=== PATIENT | female | born 1995 | race Caucasian/White ===

== ENCOUNTER → 2018-03-01 10:01 | Outpatient (CLI) | payer OTHER, SELFPAY ==
[2018-03-01 10:56] LABS: Absolute Lymphocyte Count 2.09 X10^3/ul (0.83-4.51); Absolute Neutrophil Count 4.7 X10^3/uL (2.0-7.7); Basophil# 0.03 X10^3/uL; Basophil% 0.4 % (0-1); Eosinophil# 0.08 X10^3/uL; Eosinophils% 1.1 % (0-5); Hematocrit 41.1 % (37-47); Lymphocyte # 2.09 X10^3/ul (4.0); Lymphocyte % 27.7 % (19-41); Mean Corp Hgb Conc 34.1 g/gl (32-36); Mean Corpuscular Hgb 33.9 pg (27.0-32.0); Mean Corpuscular Volume 99.5 fL (81-99); Mean Platelet Vol. 10.1 fl (6.2-12.0); Monocyte# 0.63 X10^3/uL; Monocyte% 8.3 % (0-10); Neutrophil # 4.71 X10^3/uL (2.7-7.7); Neutrophil % 62.4 % (47-70); POSITIVE COUNT NO; POSITIVE DIFFERENTIAL NO; POSITIVE MORPHOLOGY NO; Platelet Count 299 K/mm3 (150-450); RBC Distribution Width CV 12.4 % (11.6-14.6); RBC Distribution Width SD 44.2 fl (35.1-43.9); Red Blood Count 4.13 M/mm3 (4.2-5.4); White Blood Count 7.6 K/mm3 (4.4-11.0)
[2018-03-08 11:34] LABS: Immunoglobulin E 16 IU/mL (0-100)
== END ==
PROVIDERS: Family Provider Internal Medicine; PCP Internal Medicine; Visit Provider Internal Medicine Critical Care Medicine
DX: J30.1 Allergic rhinitis due to pollen (principal); R06.09 Other forms of dyspnea
CPT/HCPCS: 36415; 82785; 85025

== ENCOUNTER → 2018-08-26 20:34 | Outpatient (CLI) | payer OTHER, SELFPAY ==
[2018-08-30 14:18] LABS: HPV Reflexed? NOT INDICATED
== END ==
PROVIDERS: Family Provider Internal Medicine; PCP Internal Medicine; Referring Provider Nurse Practitioner Women's Health; Visit Provider Nurse Practitioner Women's Health
DX: N76.0 Acute vaginitis (principal); Z12.4 Encounter for screening for malignant neoplasm of cervix
CPT/HCPCS: 87070; 87077; 87106; 87205; 88175; G0145

== ENCOUNTER → 2020-10-13 16:17 | Outpatient (CLI) | payer OTHER, SELFPAY ==
[2020-10-13 14:10] VITALS: BMI 22.8
== END ==
PROVIDERS: PCP Family Medicine; Visit Provider Nurse Practitioner Women's Health
DX: N94.9 Unspecified condition associated with female genital organs and menstrual cycle (principal)
CPT/HCPCS: 87070; 87077; 87205

== ENCOUNTER 2022-01-13 10:13 | Outpatient (CLI) | payer OTHER, SELFPAY ==
[2022-01-18 14:28] LABS: HPV Reflexed? NOT INDICATED
== END 2022-01-13 23:59 | disposition home or self-care (01) ==
LOC: LABSPEC 10:14
PROVIDERS: PCP Family Medicine; Visit Provider Obstetrics & Gynecology
DX: Z12.4 Encounter for screening for malignant neoplasm of cervix (principal)
CPT/HCPCS: 88175; G0145

== ENCOUNTER 2025-11-12 04:01 | Emergency (ER) | payer OTHER, SELFPAY ==
[2025-11-12 04:03] VITALS: BP 129/92; PULSE 103; RESP 16; TEMP 37; O2SAT 100; BMI 25.0
--- NOTE | 2025-11-12 04:48 | EDS_ITS ---
HPI HPI - GI History of Present Illness Chief Complaint: Abd Pain Informant: patient Abdominal Pain/Flank Pain Onset: Month(s) Context: Gradual Onset Timing: Intermittent Quality: Burning, Sharp and Stabbing Location: RUQ, RLQ and Right Flank Worsened by: Nothing Relieved by: - (Hot shower) Nausea/Vomiting/Emesis GI Symptom: Positive for Nausea and Vomiting Onset: Today Quality: Positive for Nonbilious; Negative for Blood streaks, Coffee ground or Hematemesis Diarrhea/Melena/Hematochezia GI Symptom: Negative for Diarrhea, Melena or Hematochezia Associated Symptoms Associated Symptoms: Negative for Dysuria, Frequency or Hematuria LMP: Current Narrative Narrative: Patient presents with abdominal pain has been intermittent over the past 2 to 3 months. Patient states that tonight it became severe. Patient states that his sharp, stabbing, and burning. Patient states it is mainly over the right side of her abdomen and into his right flank. Patient states it did get better when she took a hot shower. Patient admits to some nausea and vomiting. Patient denies any hematemesis or coffee-ground emesis. Patient denies any diarrhea, melena, or hematochezia. Patient denies any urinary complaints. Patient states she is currently on her menstrual cycle. Patient admits to some subjective fevers and chills. [facility] Medical History (Updated 11/12/25 @ 07:[address] 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 Insomnia Anxiety attack Asthma Back spasm Back pain Syncope Scoliosis Drug rash Abscess and cellulitis Home Medications ?Medication ?Instructions ?Recorded ?Last Taken ?Type albuterol sulfate 90 mcg/actuation 2 puff inhalation Q 4H PRN 01/23/18 Unknown Rx aerosol inhaler (ProAir HFA) shortness of breath or wh eezing #18 grams albuterol sulfate 2.5 mg/3 mL 2.5 mg (3 mL) inhalation Q4H PRN 12/03/18 Unknown Rx (0.083 %) solution for nebulization shortness of breat h or wheezing #180 vials adapalene 0.1 %-benzoyl peroxide 1 applic topical JR Y 10/07/19 Unknown History 2.5 % topical gel with pump (Epiduo) spironolactone 25 mg tablet 100 mg PO DAILY 10/13/20 U nknown History (Aldactone) verapamil 120 mg 24 hr 180 mg PO DAILY 10/13/20 Unk nown History capsule,extended release levonorgestrel 0.15 mg-ethinyl 1 tab PO DAILY 90 days #90 tabs 01/19/23 Unknown Rx estradiol 30 mcg tablets,3 mos pack(91) (Jolessa) spironolactone 100 mg tablet 100 mg PO DAILY 01/19/23 Unknown History tramadol 50 mg tablet 50 mg PO Q6H PRN pain 3 days #30 01/19/23 Unknown Rx tabs hydrocodone-acetaminophen 5-325mg 1 tab PO Q6H PRN PRN Pain 3 days 11/12/25 Unknown Rx 5mg-325mg #10 TABLETS Allergy/AdvReac Type Severity Reaction Status Date / Time azithromycin (From Zithromax Allergy Severe unknown Verified 11/12/25 04:06 Z-David) cephalexin monohydrate (From Allergy Upset Verified 11/12/25 04:06 Keflex) Stomach gluten Allergy Unknown Verified 11/12/25 04:06 sulfamethoxazole (From Allergy Rash Verified 11/12/25 04:06 Bactrim) trimethoprim (From Bactrim) Allergy Rash Verified 11/12/25 04:06 Surgical History (Updated 11/12/25 @ 05:[address] Pritesh Pereira DO) Hx of section Social History adopted: No household members: spouse housing: house number of children: 0 current occupational status: employed current occupation: [employer] pets and animals: Yes history of recent travel: No Smoking Status: Never smoker Electronic Cigarette Use: not used second hand exposure: No alcohol intake: current alcohol intake frequency: holidays/special occasions only substance use type: does not use caffeine: Yes what type of physical activity do you participate in: aerobics and weight training frequency: 3-4 times per week seatbelt use: always do you feel safe at home: Yes additional social history: - [facility] Constitutional Constitutional ED: Reports chills, fever(s) and subjective Eyes Eyes: Denies blurry vision or change in vision ENT ENT ED: Denies rhinorrhea or sore throat Cardiovascular Cardiovascular: Denies chest pain or palpitations Respiratory/Chest Respiratory/Chest: Denies cough or dyspnea Gastrointestinal Gastrointestinal: Reports abdominal pain, nausea and vomiting; Denies diarrhea or melena Genitourinary Genitourinary ED: Denies dysuria or hematuria Musculoskeletal Musculoskeletal: Reports back pain; Denies neck pain Integumentary Denies abscess or rash Neurologic Neurologic: Denies headache(s) or weakness Allergic/Immunologic Allergic/Immunologic ED: Denies mouth swelling or urticaria EXAM Physical Exam Const Vital Signs: 11/12/25 04:03 11/12/25 06:02 Temperature 98.6 F Temperature Source Oral Pulse Rate 103 H 78 Respiratory Rate 16 16 Blood Pressure 129/92 H 131/88 H Blood Pressure Mean 104 102 Pulse Ox 100 98 Oxygen Delivery Method Room Air Room Air Positive well nourished and well developed Constitutional Narrative: BMI is 25.0. General Appearance ED: well developed and NAD HEENT Reports moist mucous membranes normocephalic and atraumatic Neck supple and no JVD Resp normal respiratory effort and clear to auscultation bilaterally Cardio regular rate and regular rhythm GI non-distended Palpation: soft and tender RLQ and RUQ; Negative for guarding or rebound tenderness present Back/Spine General Back: CVA tenderness right Neuro CN's II-XII intact bilaterally, moves all extremities and no sensory deficits noted Sensorium / Orientation: alert Motor Exam: strength 5/5 throughout Psych mental status grossly normal and thought process normal MDM MDM MDM Narrative Medical decision making narrative: Differential diagnosis includes ureteral calculus, pyelonephritis, urinary tract infection, diverticulitis, peptic ulcer disease, duodenal ulcer, cholecystitis, cholelithiasis, bowel obstruction, perforation, , and anxiety. CT scan of the abdomen and pelvis will be obtained to assess for ureteral calculus, pyelonephritis, bowel obstruction, perforation, pancreatitis, and cholecystitis. CBC will be obtained to assess for leukocytosis and anemia. Comprehensive metabolic profile will be obtained to assess for hepatic function, renal function, and electrolyte abnormality. Lipase will be obtained to assess for pancreatitis. Serum hCG will be obtained to assess for . Urinalysis will be obtained to assess for urinary tract infection and hematuria. Lab Data Attestation: I reviewed the patient's lab results. Lab results narrative: CBC was reviewed. There is a mild anemia with a hemoglobin of 11.2 and hematocrit 33.2. The remainder is within normal limits. Basic metabolic profile was reviewed. Potassium slightly low at 3.2. The remainder is essentially within normal limits. Lipase was reviewed and was normal at 21. Serum hCG was reviewed and was negative. Urinalysis was reviewed. Leukocyte esterase was 100. There are 5-10 white blood cells. There is no bacteria noted. Labs: Laboratory Results - last 24 hr 11/12/25 11/12/25 05:10 05:49 WBC 10.6 RBC 3.89 L Hgb 11.2 L Hct 33.2 L MCV 85.3 MCH 28.8 MCHC 33.7 RDW Std Deviation 49.8 H RDW Coeff of Joe 16.0 H Plt Count 310 MPV 10.1 Immature Gran % (Auto) 0.300 Neut % (Auto) 81.5 H Lymph % (Auto) 8.9 L Bonner % (Auto) 8.6 Eos % (Auto) 0.4 Baso % (Auto) 0.3 Absolute Neuts (auto) 8.7 H Absolute Lymphs (auto) 0.95 Nucleated RBC % 0 Sodium 142 Potassium 3.2 L Chloride 105 Carbon Dioxide 23.5 Anion Gap 14 BUN 10 Creatinine 0.58 L Estim Creat Clear Calc 131.39 Est GFR (MDRD) Non-Af 124 BUN/Creatinine Ratio 16.7 Glucose 100 H Calcium 9.3 Total Bilirubin 0.87 AST 27 ALT 25 Alkaline Phosphatase 83 Total Protein 7.3 Albumin 4.4 Globulin 2.9 Albumin/Globulin Ratio 1.5 Lipase 21 Serum , Qual NEGATIVE Urine Color Yellow Urine Clarity Clear Urine pH 7.0 Ur Specific [place] 1.005 Urine Protein 15 H Urine Glucose (UA) Normal Urine Ketones Negative Urine Occult Blood 50 H Urine Nitrite Negative Urine Bilirubin Negative Urine Urobilinogen Normal Ur Leukocyte Esterase 100 H Urine RBC 0-5 SEEN Urine WBC 5-10 SEEN Ur Squamous Epith Cells 0 SEEN Urine Bacteria 0 SEEN Urine Mucus 0 SEEN Radiography Diagnostic Testing: Clinical Impression(s) from Imaging Studies Abdomen/Pelvis CT 11/12/25 06:15 IMPRESSION: Mild colonic stool burden without evidence of acute gastroenterologic abnormality. The appendix was not definitively identified on this examination without secondary findings to suggest an acute appendicitis. No abdominal lymphadenopathy. Reading Location: [facility] CT scan of the abdomen and pelvis was obtained. There is mild stool in the colon. There is no evidence of bowel obstruction or perforation. There is no inflammatory findings in the right lower quadrant to suggest appendicitis. There is no lymphadenopathy noted. This was interpreted by the radiologist. I also independently reviewed the images. I did not see any evidence of free air or free fluid. Treatment and Re-Evaluation :: Patient was given IV fluids, morphine, and Zofran. Patient was feeling better on reevaluation. Patient was advised of her findings. Patient was instructed to drink plenty of fluids. Patient was given a prescription for a short course of [place] for pain. Patient was instructed to follow-up with her primary care physician in 5 to 7 days. Patient was instructed return if worse in any way. Patient understood and was agreeable with the plan. All questions were answered. Discharge Plan Triage Chief Complaint: Abd Pain ED Provider: Pritesh Pereira Dx/Rx/DC Orders Clinical Impression: Abdominal pain Instructions: ED Abdominal Pain Unkn Cause Fem Prescriptions: New hydrocodone-acetaminophen 5-325 mg tablet 1 tab PO Q6H PRN PRN (Reason: Pain) 3 Days Qty: 10 0RF No Action verapamil 120 mg capsule,ext rel. pellets 24 hr 180 mg PO DAILY adapalene-benzoyl peroxide [Epiduo] 0.1-2.5 % gel with pump 1 applic TOPICAL DAILY spironolactone [Aldactone] 25 mg tablet 100 mg PO DAILY spironolactone 100 mg tablet 100 mg PO DAILY levonorgestrel-ethinyl estrad [Jolessa] 0.15 mg-30 mcg (91) tablets,dose pack,3 month 1 tab PO DAILY 90 Days Qty: 90 5RF Rx Instructions: take continuously (no breaks between active pills) tramadol 50 mg tablet 50 mg PO Q6H PRN (Reason: pain) 3 Days Qty: 30 3RF albuterol sulfate [ProAir HFA] 90 mcg/actuation HFA aerosol inhaler 2 puff INHALATION Q4H PRN (Reason: shortness of breath or wheezing) Qty: 18 6RF albuterol sulfate 2.5 mg /3 mL (0.083 %) solution for nebulization 2.5 mg INHALATION Q4H PRN (Reason: shortness of breath or wheezing) Qty: 180 6RF Primary Care Provider: Care Physician,No Primary Referrals: Jeb Restrepo MD [Non-Staff, [facility]] - 5-7 Days Print Language: Omani Disposition Disposition: Home, Self Care
--- OUTSIDE RECORDS SUMMARY | 2025-11-12 05:01 | XMS RPT_ITS | CCD ---
Author Organization [facility] Care Team Providers Care Mold Cleaner Name Role Phone Cat Gutierrez Unavailable Miguel Rodriges Unavailable Sahil Jansen Unavailable Surya Osman Unavailable Princess Saeed Unavailable Unavailable Virginia Valdes Unavailable Unavailable Raciel Green Unavailable Unavailable Long, Tomasa L Unavailable Unavailable Unavailable Unavailable BrendaRamirez bennetteen Unavailable Miguel Rodriges Unavailable AttBonilla royaliherma Unavailable Surya Osman Unavailable Princess Saeed Unavailable Unavailable Virginia Valdes Unavailable Unavailable Raciel Green Unavailable Unavailable Long, Tomasa L Unavailable Unavailable Unavailable Unavailable Luis Restrepo Unavailable Unavailable Luis Restrepo Unavailable Unavailable Unknown, Referring Provider Unavailable Unav ailable Cat Gutierrez Unavailable Unavailable Luis Restrepo MD Unavailable Unavailable Cecille Urbano Unavailable Unavaila ble Luis Restrepo Unavailable Unavailable Unknown, Referring Provider Unavailable Unav ailable Brenda Cat K Unavailable Unavailable Luis Restrepo Unavailable Unavailable Unavailable Trill GREENBELTMarissa MEDEL Primary Care Provider Trill GREENBELTMarissa MEDEL Primary Care Provider Trill GREENBELTMarissa MEDEL Primary Care Provider JESUS ABDI Primary Care Physician JAMEY FARIAS Primary Care Unavailable MARISSA BLACKWOOD Attending Unavailable MARISSA BLACKWOOD Referring Unavailable MARISSA BLACKWOOD Primary Care Unavailable MARISSA BLACKWOOD Primary Care Unavailable MARISSA BLACKWOOD Attending Unavailable MARISSA BLACKWOOD Primary Care Unavailable MARISSA BLACKWOOD Referring Unavailable JESUS BLACKWOOD CNP Primary Care Unavailable CARITO JURADO Attending Unavailable Savanna Reynoso Attending UnavailJeb Segura Referring Unavailable Jeb Restrepo Primary Care Unavailable Allergies Allergy Classification Reported Allergen(s) Allergy Type Date of Onset Reaction(s) Facility Amoxicillin / Clavulanate (1 source) Amoxicillin / Clavulanate Drug Allergy Diarrhea [facility] Work Phone: Cephalosporins (antibiotic) (1 source) Cephalexin Drug Allergy Vomiting [facility] Work Phone: Macrolides (antibiotic) (1 source) Azithromycin Drug Allergy Diarrhea [facility] Work Phone: Penicillins (antibiotic) (1 source) Penicillins; Translations: [Penicillins] Drug Allergy [facility] Work Phone: Sulfamethoxazole / Trimethoprim (1 source) Sulfamethoxazole / Trimethoprim Drug Allergy Vomiting [facility] Work Phone: (15 sources) Azithromycin; Translations: [Zithromax *MACROLIDES*] Drug Allergy 10-07-20 19 Diarrhea, Other: See Comments [facility] Work Phone: (16 sources) Cephalexin; Translations: [Keflex *CEPHALOSPORINS*] Drug Allergy 10-07-20 19 Vomiting, GI Upset [facility] Work Phone: (16 sources) Sulfamethoxazole / Trimethoprim; Translations: [Bactrim *ANTI-INFECTIVE AGENTS - MISC.*] Drug Allergy 07-28-20 22 Rash, Vomiting [facility] Work Phone: (2 sources) Amoxicillin / Clavulanate; Translations: [Augmentin] Drug Allergy Diarrhea [facility] Work Phone: (1 source) Azithromycin Drug Allergy Diarrhea [facility] Work Phone: (1 source) Cephalexin Drug Allergy Vomiting [facility] Work Phone: (3 sources) Penicillins; Translations: [Penicillins] Allergy to drug (finding) 07-28-20 [facility] Repository (1 source) Sulfamethoxazole / Trimethoprim Drug Allergy Vomiting [facility] Work Phone: (12 sources) Penicillins Drug Allergy 07-28-20 Diarrhea [facility] Work Phone: (13 sources) Sulfamethoxazole; Translations: [SULFAMETHOXAZOLE] Drug Allergy 10-07-20 Rash [facility] Work Phone: (13 sources) Trimethoprim; Translations: [TRIMETHOPRIM] Drug Allergy 10-07-20 Rash [facility] Work Phone: (13 sources) Wheat gluten extract; Translations: [GLUTEN] Drug Allergy 10-07-20 Unknown [facility] Work Phone: (2 sources) Azithromycin; Translations: [AZITHROMYCIN] Drug Allergy 10-07-20 [facility] Repository (1 source) Cephalexin; Translations: [CEPHALEXIN] Drug Allergy 10-07-20 [facility] Rep[facility] (1 source) Sulfamethoxazole / Trimethoprim; Translations: [SULFAMETHOXAZOLE-T RIMETHOPRIM] Drug Allergy 07-28-20 [facility] Repository (1 source) Cephalexin Drug Allergy 01-20-20 23 [facility] Repository (1 source) Gluten Drug allergy (disorder) 01-20-20 23 [facility] Repository (1 source) Sulfamethoxazole Drug Allergy 01-20-20 23 [facility] Repository (1 source) Trimethoprim Drug Allergy 01-20-20 23 [facility] Repository Medications Current Medications Medication Drug Class(es) Dates Sig (Normalized) Sig (Original) acetaminophen 325 mg / butalbital 50 mg / caffeine 40 mg oral capsule (20 sources) Barbiturate, Central Nervous System Stimulant, Methylxanthine Start: 02-19-2023 take 1 capsule by mouth every four hours as needed for headache acetaminophen 325 mg-caffeine 40 mg-butalbital 50 mg (FIORICET) per capsule Indications: Migraine without aura and without status migrainosus, not intractable Take 1 capsule by mouth every 4 hours as needed for headache. 45 capsule 3 02/19/2023 Active Start: 09-23-2021 End: 02-19-2023 take 1 capsule by mouth every four hours as needed for headache acetaminophen 325 mg-caffeine 40 mg-butalbital 50 mg (FIORICET) per capsule Indications: Migraine without aura and without status migrainosus, not intractable Take 1 capsule by mouth every 4 hours as needed for headache. 45 capsule 3 01/18/2023 02/19/2023 Discontinued Start: 05-07-2020 take 1 capsule by mo uth every four hours as needed [id number] 50-325-40 MG Oral Capsule TAKE 1 CAPSULE EVERY 4 HOURS NEEDED. Quantity: 30 Refills: 6 Ordered: 14-Sep-2020 Luis Restrepo MD Start : 07-May-2020 Active Start: 08-01-2018 take 1 capsule by mo uth once daily as needed Fioricet 50-300-40 MG Oral Capsule 1 (one) Capsule 1-2 daily for migraine prn for 0 days Quantity: 30 {Capsule} Refills: 0 Ordered: 01-Aug-2018 Cat Gutierrez DO, DO, Kathleen Start : 01-Aug-2018 Active Comments: [id number] migraines Comment on above: [id number] migrai saundra Take 1 capsule by mo uth every 4 hours as needed. Take 1 capsule by mo uth every 4 hours as needed for headache. acetaminophen 325 mg / HYDROcodone bitartrate 5 mg oral tablet (1 source) Opioid Agonist Start: 023 End: 023 take 1 tablet by mouth every four hours as needed for pain Renner 325- 5 mg oral tablet Dose = 1 tab(s), Oral, q4h, PRN for pain, X 2 day(s), # 7 tab(s), 0 Refill(s), Contusion of leg, 63.8 Start Date: 12/22/22 Stop Date: 12/24/22 Status: Ordered esomeprazole 20 mg delayed release oral capsule (7 sources) Proton Pump Inhibitor Start: End: take 1 capsule by mouth once daily esomeprazole (NEXIUM) 20 mg capsule Take 1 capsule by mouth once daily. ONE HOUR BEFORE EATING. 90 capsule 3 08/24/2022 08/24/2023 Active Comment on above: Take 1 capsule by mo [facility] once daily. ONE HOUR BEFORE EATING. spironolactone 100 mg oral tablet (18 sources) Aldosterone Antagonist Start: 020 End: 024 take 1 tablet by mouth once daily spironolactone (ALDACTONE) 100 mg tablet Indications: Acne, unspecified acne type Take 1 tablet by mouth once daily. 90 tablet 3 01/11/2023 01/11/2024 Active Start: 03-29-2015 End: 09-23-2015 take 1 tablet by mouth twice daily ALDACTONE, 100MG (Oral Tablet) 1 (one) Tablet bid for 30 days Quantity: 60 {Tablet} Refills: 0 Ordered: 23-Sep-2015 Princess Saeed LPN Start : 29-Mar-2015 End : 23-Sep-2015 Inactive Comment on above: Take 1 tablet by [facility] once daily. Completed/Discontinued Medications Medication Drug Class(es) Dates Sig (Normalized) Sig (Original) [id number] 200 actuat albuterol 0.09 mg/actuat metered dose inhaler (20 sources) beta2-Adrenergic Agonist Start: 03-04-2021 PROAIR HFA 90 mcg/actuation inhaler Start: 02-10-2021 Albuterol Sulf ate (2.5 MG/3ML) 0.083% Inhalation Nebulization Solution USE 1 UNIT DOSE IN NEBULIZER EVERY 6 HOURS NEEDED. Quantity: 1 Refills: 11 Ordered: 10-Feb-2021 Cecille Urbano Start : 10-Feb-2021 Active Start: 11-24-2020 take 2 puff(s) by in halation every four to six hours as needed Albuterol Sulfate HFA 108 (90 Base) MCG/ACT Inhalation Aerosol Solution INHALE 2 PUFFS EVERY 4-6 HOURS NEEDED. Quantity: 3 Refills: 3 Ordered: 04-Mar-2021 Luis Restrepo MD Start : 24-Nov-2020 Active Start: 11-24-2020 take 2 puff(s) by in halation every four to six hours as needed Albuterol Sulfate HFA 108 (90 Base) MCG/ACT Inhalation Aerosol Solution INHALE 2 PUFFS EVERY 4-6 HOURS NEEDED. Quantity: 3 Refills: 3 Luis Restrepo MD Start : 24-Nov-2020 Active 6.7 GM Inhaler Start: 06-28-2017 End: 04-26-2016 Proventil HFA 108 (90 Base) MCG/ACT Inhalation Aerosol Solution 2 (two) Aerosol Soln Aerosol Soln q 6 hr prn for 0 days Quantity: 1 {Inhaler} Refills: 1 Ordered: 28-Jun-2017 Cat Gutierrez DO, DO, Kathleen Start : 28-Jun-2017 End : 26-Apr-2016 Active Start: 06-28-2017 take 2 puff(s) by in halation every six hours as needed ProAir HFA 108 (90 Base) MCG/ACT Inhalation Aerosol Solution 2 (two) Puff Puff q6h prn for 0 days Quantity: 1 {Each} Refills: 2 Ordered: 28-Jun-2017 Cat Gutierrez DO, DO, Kathleen Start : 28-Jun-2017 Active Start: 06-28-2017 End: 04-26-2016 Proventil HFA 108 (90 Base) MCG/ACT Inhalation Aerosol Solution 2 (two) Aerosol Soln Aerosol Soln q 6 hr prn for 0 days Quantity: 1 {Inhaler} Refills: 1 Ordered: 28-Jun-2017 Cat Gutierrez DO, DO, Kathleen Start : 28-Jun-2017 End : 26-Apr-2016 Active Start: 06-28-2017 ProAir HFA 108 (90 Base) MCG/ACT Inhalation Aerosol Solution 2 (two) Puff Puff q6h prn for 0 days Quantity: 1 {Each} Refills: 2 Ordered: 28-Jun-2017 Cat Gutierrez DO, DO, Kathleen Start : 28-Jun-2017 Active Start: 04-26-2016 End: 03-28-2017 Ventolin HFA 108 (90 Base) M CG/ACT Inhalation Aerosol Solution 1 (one) Aerosol Soln Aerosol Soln 2 puffs q6hrs prn for 0 days Quantity: 1 {Bottle} Refills: 3 Ordered: 28-Mar-2017 Luiz CUTTER HEAD SHARPENERKonstantinn L Start : 26-Apr-2016 End : 28-Mar-2017 Inactive Start: 11-03-2015 End: 03-28-2017 Albuterol Sulfate (2.5 MG/3M L) 0.083% Inhalation Nebulization Solution 1 (one) Nebulized Soln Nebulized Soln every six hours, as needed for 30 days Quantity: 1 {Bottle} Refills: 1 Ordered: 28-Mar-2017 Luiz CUTTER HEAD SHARPENERTomasa Frost L Start : 03-Nov-2015 End : 28-Mar-2017 Inactive Comments: Medication taken as needed. as needed for shortness of breath Start: 11-03-2015 End: 04-26-2016 PROVENTIL HFA, 108 (90 Base)MCG/ACT (Inhalation Aerosol Solution) 2 (two) Puff Puff tid or qid prn for 0 days Quantity: 1 {Inhaler} Refills: 2 Ordered: 26-Apr-2016 Princess Saeed LPN Start : 03-Nov-2015 End : 26-Apr-2016 Inactive Comments: use 10 minutes before exercise Start: 11-03-2015 End: 04-26-2016 PROVENTIL HFA, 108 (90 Base)MCG/ACT (Inhalation Aerosol Solution) 2 (two) Puff Puff tid or qid prn for 0 days Quantity: 1 {Inhaler} Refills: 2 Ordered: 26-Apr-2016 Princess Saeed LPN Start : 03-Nov-2015 End : 26-Apr-2016 Inactive Comments: use 10 minutes before exercise take 2 puff(s) by in halation four times daily as needed PROAIR HFA, 108 (90 Base)MCG/ACT (Inhalation Aerosol Solution) 2 puffs qid, prn (108 (90 Base) MCG/ACT) Inactive Comment on above: Medication taken as needed. as needed for shortness of breath use 10 minutes befor e exercise azithromycin 250 mg oral tablet (2 sources) Macrolide Antimicrobial Start: 014 End: 015 ZITHROMAX Z-TARA, 250MG (Oral Tablet) 1 (one) Tablet TAD for 0 days Quantity: 1 {Package} Refills: 0 Ordered: 17-Feb-2015 Radhika Baker LPN Start : 21-Sep-2014 End : 17-Feb-2015 Discontinued 120 actuat beclomethasone dipropionate 0.08 mg/actuat metered dose inhaler (2 sources) Corticosteroid Start: End: take 1 puff(s) by inhalation twice daily QVAR, 80MCG/ACT (Inhalation Aerosol Solution) 1 (one) Puff bid for 0 days Quantity: 1 {Inhaler} Refills: 3 Ordered: 29-Mar-2015 Savanna Singh Start : 19-Mar-2015 End : 29-Mar-2015 Discontinued benzonatate 100 mg oral capsule (2 sources) Non-narcotic Antitussive Start: End: take 1 capsule by mouth three times daily as needed for cough Tessalon Perles 100 MG Oral Capsule 1 (one) Capsule tid prn cough for 7 days Quantity: 15 {Capsule} Refills: 0 Ordered: 16-Aug-2016 Amber Mckenna CNP Start : 16-Aug-2016 End : 23-Aug-2016 Inactive benztropine mesylate 0.5 mg oral tablet (2 sources) Anticholinergic, Antihistamine Start: take 1 tablet by mouth once daily Benztropine Mesylate 0.5 MG Oral Tablet TAKE 1 2 TABLETS BY MOUTH DAILY BEFORE BED FOR SWEATING Quantity: 60 Refills: 0 Ordered: 26-Jan-2021 DO Start : 25-Jan-2021 Active 60 actuat budesonide 0.08 mg/actuat / formoterol fumarate 0.0045 mg/actuat metered dose inhaler (2 sources) Corticosteroid, beta2-Adrenergic Agonist Start: End: take 2 puff(s) by inhalation twice daily SYMBICORT, 80-4.5MCG/ACT (Inhalation Aerosol) 2 (two) Puff Puff bid for 0 days Quantity: 1 {Inhaler} Refills: 0 Ordered: 23-Sep-2015 Princess Saeed LPN Start : 05-Mar-2015 End : 23-Sep-2015 Inactive Start: 03-05-2015 End: 09-23-2015 SYMBICORT, 80-4.5MCG/ACT (In halation Aerosol) 2 (two) Puff Puff bid for 0 days Quantity: 1 {Inhaler} Refills: 0 Ordered: 23-Sep-2015 Princess Saeed LPN Start : 05-Mar-2015 End : 23-Sep-2015 Inactive busPIRone hydrochloride 15 mg oral tablet (1 source) Start: 04-23-2020 take 1 tablet by mouth four times daily busPIRone HCl - 15 MG Oral Tablet TAKE 1 TABLET 4 TIMES DAILY Refills: 0 Start : 23-Apr-2020 Active cetirizine hydrochloride 10 mg oral tablet (2 sources) Histamine-1 Receptor Antagonist Start: 04-21-2016 End: 08-16-2016 take 1 tablet by mouth once daily ZyrTEC Allergy 10 MG Oral Tablet 1 (one) Tablet Tablet daily for 0 days Quantity: 30 {Tablet} Refills: 0 Ordered: 16-Aug-2016 Natividad Bryson LPN Start : 21-Apr-2016 End : 16-Aug-2016 Discontinued chlorhexidine gluconate 40 mg/ml topical spray (2 sources) Start: 04-02-2015 End: 09-23-2015 CHLORHEXIDINE GLUCONATE, 4% (External Liquid) 1 (one) Liquid Liquid x 5days then weekly x 4 weeks for 0 days Quantity: 1 {Bottle} Refills: 0 Ordered: 23-Sep-2015 Princess Saeed LPN Start : 02-Apr-2015 End : 23-Sep-2015 Inactive Comments: wash body head to toe, leave on 2 min then thouroughly wash off daily x 5 days, then weekly x 4 weeks Start: 04-02-2015 End: 09-23-2015 CHLORHEXIDINE GLUCONATE, 4% (External Liquid) 1 (one) Liquid Liquid x 5days then weekly x 4 weeks for 0 days Quantity: 1 {Bottle} Refills: 0 Ordered: 23-Sep-2015 Princess Saeed LPN Start : 02-Apr-2015 End : 23-Sep-2015 Inactive Comments: wash body head to toe, leave on 2 min then thouroughly wash off daily x 5 days, then weekly x 4 weeks Comment on above: wash body head to to e, leave on 2 min then thouroughly wash off daily x 5 days, then weekly x 4 weeks clonazePAM 1 mg oral tablet (1 source) Benzodiazepine Start: 2019 clonazePAM 1 MG Oral Tablet TAKE TABLET PRN Refills: 0 Start : 02-Apr-2020 Active codeine phosphate 2 mg/ml / guaiFENesin 20 mg/ml oral solution (2 sources) Opioid Agonist Start: 2015 End: 2016 take 1-2 [tsp_us] by mouth once daily at bedtime as needed Cheratussin AC 100-10 MG/5ML Oral Syrup 1-2 Teaspoon qhs prn for 0 days Quantity: 6 {Ounce} Refills: 0 Ordered: 28-Mar-2017 Tomasa Dee LPN Start : 16-Aug-2016 End : 28-Mar-2017 Inactive cyclobenzaprine hydrochloride 5 mg oral tablet (2 sources) Muscle Relaxant Start: 2013 End: 2014 take 1 tablet by mouth once daily at bedtime as needed CYCLOBENZAPRINE HCL, 5MG (Oral Tablet) 1 (one) Tablet Tablet qhs prn for muscle relaxant for 0 days Quantity: 30 {Tablet} Refills: 0 Ordered: 17-Feb-2015 Radhika Baker LPN Start : 22-Jul-2014 End : 17-Feb-2015 Discontinued dicyclomine hydrochloride 10 mg oral capsule (3 sources) Anticholinergic Start: 2018 take 1 capsule by mouth three times daily Dicyclomine HCl - 10 MG Oral Capsule TAKE 1 CAPSULE BY MOUTH THREE TIMES A DAY Quantity: 90 Refills: 0 Ordered: 16-Jul-2019 DO Start : 16-Jul-2019 Active doxycycline hyclate 100 mg oral capsule (2 sources) Tetracycline-class Drug Start: 2014 End: 2014 take 1 capsule by mouth twice daily DOXYCYCLINE HYCLATE, 100MG (Oral Capsule) 1 (one) Capsule Capsule bid for 0 days Quantity: 20 {Capsule} Refills: 0 Ordered: 23-Sep-2015 Princess Saeed LPN Start : 29-Mar-2015 End : 23-Sep-2015 Inactive DULoxetine 60 mg delayed release oral capsule (2 sources) Serotonin and Norepinephrine Reuptake Inhibitor Start: 2014 End: 2014 take 5 capsules by mouth once daily at bedtime CYMBALTA, 60MG (Oral Capsule Delayed Release Particles) 1 (one) Capsule DR Part Capsule DR Part qhs for 0 days Quantity: 30 {Capsule} Refills: 3 Ordered: 23-Sep-2015 Princess Saeed LPN Start : 17-Feb-2015 End : 23-Sep-2015 Inactive Start: 02-17-2015 End: 09-23-2015 take 1 capsule by mouth once daily at bedtime CYMBALTA, 60MG (Oral Capsule Delayed Release Particles) 1 (one) Capsule DR Part Capsule DR Part qhs for 0 days Quantity: 30 {Capsule} Refills: 3 Ordered: 23-Sep-2015 Princess Saeed RAMIRO Start : 17-Feb-2015 End : 23-Sep-2015 Inactive Norgestimate-Eth Estradiol 0.25-35 MG-MCG Oral Tablet (2 sources) Progestin, Estrogen Start: 10-07-2019 Norgestimate-Eth Estradiol 0.25-35 MG-MCG Oral Tablet Quantity: 28 Refills: 0 DO Start : 07-Oct-2019 Active Start: 10-07-2019 Norgestimate-E th Estradiol 0.25-35 MG-MCG Oral Tablet Quantity: 28 Refills: 0 Start : 07-Oct-2019 Active ferrous sulfate 325 mg oral tablet (7 sources) take 1 tablet by mouth twice daily at mealtime ferrous sulfate 325 mg (65 mg iron) tablet Take 325 mg by mouth twice daily with meals. 0 Active Comment on above: Take 325 mg by mouth twice daily with meals. 30 actuat fluticasone furoate 0.2 mg/actuat / vilanterol 0.025 mg/actuat dry powder inhaler (2 sources) Corticosteroid, beta2-Adrenergic Agonist Start: 02-11-20 21 Breo Ellipta 200-25 MCG/INH Inhalation Aerosol Powder Breath Activated ONE INHALATION DAILY. AFTER INHALATION RINSE MOUTH WITH WATER & SPIT.USE SAME TIME EACH DAY, NO MORE THAN 1 TIME IN 24 HOURS Quantity: 3 Refills: 3 Ordered: 04-Mar-2021 Luis Restrepo MD Start : 10-Feb-2021 Active gabapentin 600 mg oral tablet (1 source) Anti-epileptic Agent take 1 tablet by mouth three times daily Gabapentin 600 MG Oral Tablet TAKE 1 TABLET 3 TIMES DAILY. Refills: 0 Active levoFLOXacin 500 mg oral tablet (2 sources) Quinolone Antimicrobial Start: 08-16-20 16 End: 08-23-20 16 take 1 tablet by mouth once daily Levaquin 500 MG Oral Tablet 1 (one) Tablet daily for 7 days Quantity: 7 {QS} Refills: 0 Ordered: 16-Aug-2016 Amber Mckenna CNP Start : 16-Aug-2016 End : 23-Aug-2016 Inactive LORazepam 0.5 mg oral tablet (2 sources) Benzodiazepine Start: 02-15-20 18 take 1 tablet by mouth once daily as needed Ativan 0.5 MG Oral Tablet 1 (one) Tablet qd prn for 180 days Quantity: 30 {Tablet} Refills: 0 Ordered: 14-Feb-2018 Brenda LORD Cat Deal DO Start : 14-Feb-2018 Active Comments: thirtydx anxiety Comment on above: thirtydx anxiety lurasidone hydrochloride 40 mg oral tablet (1 source) Atypical Antipsychotic Start: 04-26-20 20 take 1 tablet by mouth at bedtime Latuda 40 MG Oral Tablet TAKE 1 TABLET Bedtime Refills: 0 Start : 26-Apr-2020 Active meloxicam 7.5 mg oral tablet (2 sources) Nonsteroidal Anti-inflammatory Drug Start: 08-26-20 14 End: 03-29-20 15 take 1 tablet by mouth once daily at mealtime MELOXICAM, 7.5MG (Oral Tablet) 1 (one) Tablet Tablet daily for 0 days Quantity: 30 {Tablet} Refills: 0 Ordered: 29-Mar-2015 Savanna Singh Start : 26-Aug-2014 End : 29-Mar-2015 Discontinued Comments: with food Comment on above: with food metaxalone 800 mg oral tablet (2 sources) Start: 09-02-20 15 End: 09-23-20 15 take 1 tablet by mouth three times daily as needed METAXALONE, 800MG (Oral Tablet) 1 (one) Tablet tid prn for 0 days Quantity: 20 {Tablet} Refills: 0 Ordered: 23-Sep-2015 Princess Saeed LPN Start : 02-Sep-2015 End : 23-Sep-2015 Inactive mirtazapine 15 mg oral tablet (2 sources) Start: 06-26-20 14 End: 03-29-20 15 take 1 tablet by mouth once daily at bedtime REMERON, 15MG (Oral Tablet) 1 (one) Tablet qhs for 30 days Quantity: 30 {Tablet} Refills: 3 Ordered: 29-Mar-2015 Savanna Singh Start : 26-Jun-2014 End : 29-Mar-2015 Discontinued modafinil 100 mg oral tablet (2 sources) Sympathomimetic-like Agent Start: 12-02-19 16 End: 08-16-20 16 take 1 tablet by mouth once daily Provigil 100 MG Oral Tablet 1 (one) Tablet Tablet qd for 0 days Quantity: 30 {Tablet} Refills: 0 Ordered: 16-Aug-2016 aNtividad Bryson LPN Start : 02-Dec-2015 End : 16-Aug-2016 Discontinued Comments: thirty Comment on above: thirty montelukast 10 mg oral tablet (2 sources) Leukotriene Receptor Antagonist Start: 02-11-20 21 take 1 tablet by mouth once daily Montelukast Sodium 10 MG Oral Tablet TAKE 1 TABLET DAILY. Quantity: 90 Refills: 3 Ordered: 04-Mar-2021 Luis Restrepo MD Start : 10-Feb-2021 Active mupirocin 0.02 mg/mg topical ointment (2 sources) RNA Synthetase Inhibitor Antibacterial Start: 04-02-20 15 End: 09-23-20 15 MUPIROCIN, 2% (External Ointment) 1 (one) Ointment Ointment apply qd x 5 days for 0 days Quantity: 1 {Tube} Refills: 0 Ordered: 23-Sep-2015 Princess Saeed LPN Start : 02-Apr-2015 End : 23-Sep-2015 Inactive Comments: apply small amount to q tip and apply to each nares, umbilicus, and rectum with new q tip for each area Comment on above: apply small amount t o q tip and apply to each nares, umbilicus, and rectum with new q tip for each area naproxen 500 mg oral tablet (12 sources) Nonsteroidal Anti-inflammatory Drug Start: 07-28-20 22 take 1 tablet by mouth twice daily as needed for pain naproxen (NAPROSYN) 500 mg tablet Indications: Chronic bilateral low back pain without sciatica , Chronic upper back pain Take 1 tablet by mouth twice daily as needed for pain (FOR PAIN - TAKE WITH FOOD.). 60 tablet 5 07/28/2022 Active Comment on above: Take 1 tablet by [facility] twice daily as needed for pain (FOR PAIN - TAKE WITH FOOD.). Norgestimate-Eth Estradiol 0.25-35 MG-MCG Oral Tablet (1 source) Start: 10-07-20 19 Norgestimate-Eth Estradiol 0.25-35 MG-MCG Oral Tablet Quantity: 28 Refills: 0 Ordered: 24-Feb-2020 DO Start : 07-Oct-2019 Active NORGESTIMATE-ETHINYL ESTRADIOL 0.18/0.215/0.25 MG-35 MCG,21, TAB (12 sources) Start: 10-07-20 19 NORGESTIMATE-ETHINY L ESTRADIOL 0.18/0.215/0.25 MG-35 MCG,21, TAB Norgestimate-Ethiny l Estradiol Active 1 TAB daily 84 October 07, 2019 3:52pm 0 10/07/2019 Active Comment on above: Norgestimate-Ethinyl Estradiol Active 1 TAB daily October 07, 2019 3:52pm omeprazole 20 mg delayed release oral capsule (2 sources) Proton Pump Inhibitor Start: 06-26-20 14 End: 07-22-20 14 take 1 capsule by mouth twice daily OMEPRAZOLE, 20MG (Oral Capsule Delayed Release) 1 (one) Capsule DR bid for 0 days Quantity: 60 {Capsule} Refills: 1 Ordered: 22-Jul-2014 Radhika Baker LPN Start : 26-Jun-2014 End : 22-Jul-2014 Discontinued predniSONE 20 mg oral tablet (6 sources) Start: 02-11-20 21 take 2 tablets by mouth once daily predniSONE 20 MG Oral Tablet TAKE 2 TABLET Daily Quantity: 10 Refills: 1 Ordered: 10-Feb-2021 Cecille Urbano Start : 10-Feb-2021 Active Start: 08-16-2016 End: 03-28-2017 PredniSONE 10 MG Oral Tablet 1 (one) Tablet bid x 3days for 0 days Quantity: 6 {Tablet} Refills: 0 Ordered: 28-Mar-2017 Tomasa Dee LPN Start : 16-Aug-2016 End : 28-Mar-2017 Inactive Comments: with food Start: 11-04-2015 End: 11-14-2015 PREDNISONE, 20MG (Oral Table t) 1 (one) Tablet UAD for 10 days Quantity: 20 {Tablet} Refills: 0 Ordered: 04-Nov-2015 Mariusz Muller MD Start : 04-Nov-2015 End : 14-Nov-2015 Inactive Comments: 40 mg BID for 2 days20 mg BID for 4 days20 mg Qd for 4 days then stop Start: 11-04-2015 End: 11-14-2015 PREDNISONE, 20MG (Oral Table t) 1 (one) Tablet UAD for 10 days Quantity: 20 {Tablet} Refills: 0 Ordered: 04-Nov-2015 Mariusz Muller MD Start : 04-Nov-2015 End : 14-Nov-2015 Inactive Comments: 40 mg BID for 2 days20 mg BID for 4 days20 mg Qd for 4 days then stop Comment on above: with food 40 mg BID for 2 days 20 mg BID for 4 days20 mg Qd for 4 days then stop QUEtiapine 200 mg oral tablet (1 source) Atypical Antipsychotic Start: 04-02-20 QUEtiapine Fumarate 200 MG Oral Tablet TAKE ONE HALF TABLET FOR SLEEP NEEDED Refills: 0 Start : 02-Apr-2020 Active rizatriptan 10 mg disintegrating oral tablet (2 sources) Serotonin-1b and Serotonin-1d Receptor Agonist Start: 07-09-20 17 End: 07-26-20 17 take 1 tablet by mouth every two hours Maxalt-MAJOR GENERAL 10 MG Oral Tablet Dispersible 1 (one)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 07/28/2022 Status migrainosus [G43.901] 07/28/2022 Syncope [R55] 07/28/2022 MTHFR gene mutation [Z15.89] 08/28/2022 Encounter Status:Closed by MARISSA BLACKWOOD on 10/10/22 Normal [facility] ESTROGEN FRACTION BLon 09-02 E1 [Mass/Vol] 20.6 pg/mL [facility] E2 High sensitivity method [Mass/Vol] 11.3 pg/mL [facility] ic Estrogen [Mass/Vol] 31.9 pg/mL [facility] METHYLMALONIC ACIDon Methylmalonate [Moles/Vol] 154 nmol/L 79 - 376 nmol/L [facility] FSH BLDon 08-30-2022 Follitropin Qn 0.9 m[IU]/mL See comment mIU/mL [facility] LUTEINIZING HORMONEon 2021 Lutropin Qn See comment mIU/mL [facility] VITAMIN D 25 HYDROXYon 08-30 25-hydroxyvitamin D3 [Mass/Vol] 177.0 ng/mL >=30.0 ng/mL [facility] FERRITIN BLDon 08-29-2022 Ferritin [Mass/Vol] 28.2 ng/mL 14.7 - 2 05.1 ng/mL [facility] FOLATE SERUMon 08-29-2022 Folate [Mass/Vol] 14.0 ng/mL >4.7 ng/mL [facility] Iron and Iron binding capaci ty panelon 08-29-2022 Iron [Mass/Vol] 481 ug/dL High 41 - 186 ug/dL [facility] Iron binding capacity [Mass/Vol] 500 ug/dL High 232 - 386 ug/dL [facility] Iron saturation [Mass fraction] 96.2 % High 15.0 - 57.0 % [facility] Prealbumin [Mass/Vol]on 08-19 Prealbumin Nephelometry [Mass/Vol] 28 mg/dL 17 - 36 mg/dL [facility] VITAMIN B12 BLOODon 08-29-20 Cobalamin (Vitamin B12) [Mass/Vol] 431 pg/mL 232 - 1,245 pg/mL [facility] 25(OH)D3 SerPl-mCncon 2021 25-hydroxyvitamin D3 [Mass/Vol] 177.0 ng/mL Normal >=30.0 [facility] Comment on above: Order Comment: Speci men Type: BLOOD SPECIMENOrdering Facility: [facility] Address: [address] [place] [address] Result Comment: Clas sification of 25 [place] Vitamin D status: Deficiency: <= 20.0 ng/ml. Insufficiency: 21.0-29.0 ng/ml. Sufficiency: >= 30.0 ng/ml. Performed By: #### 1 989-3 ####[facility] [id number] [address] STATES OF [facility] CBC W Auto Differential pane l (Bld)on 08-28-2022 Basophils (Bld) [#/Vol] 10*3/uL Normal <0.11 [facility] Comment on above: Order Comment: Speci men Type: BLOOD SPECIMEN Ordering Facility: [facility] Address: [address] [place] [address] Performed By: #### 5 7021-8 #### [facility] CLIA [id number] [address] [place] [address] [place] Basophils/100 WBC (Bld) 0.3 % Normal [facility] Comment on above: Order Comment: Speci men Type: BLOOD SPECIMEN [facility]ing Facility: [facility] Address: [address] [place] [address] Performed By: #### 5 7021-8 #### [facility] CLIA [id number] [address] [place], [place] [address] [place] [address] STATES OF [facility] Differential cell count method Nom (Bld) Auto Normal [facility] Comment on above: Order Comment: Speci men Type: BLOOD SPECIMEN Ordering Facility: [facility] Address: [address] [place] [address] Performed By: #### 5 7021-8 #### [facility] CLIA [id number] [address] [place] [address] [place] Eosinophils (Bld) [#/Vol] 0.07 10*3/uL Normal <0.46 [facility] Comment on above: Order Comment: Speci men Type: BLOOD SPECIMEN Ordering Facility: [facility] Address: [address] [address] Performed By: #### 5 7021-8 #### [facility] CLIA [id number] [address] [place] [address] [place] Eosinophils/100 WBC (Bld) 1.0 % Normal [facility] Comment on above: Order Comment: Speci men Type: BLOOD SPECIMEN [facility]ing [facility]: [facility] Address: [address] [place] [address] Performed By: #### 5 7021-8 #### [facility] CLIA [id number] [address] [place] Erythrocyte distribution width (RBC) [Ratio] 12.3 % Normal 11.5-15.0 [facility] Comment on above: Order Comment: Speci men Type: BLOOD SPECIMEN [facility]ing Facility: [facility] Address: [address] [place] [address] Performed By: #### 5 7021-8 #### [facility] CLIA [id number] [address] [place] Hematocrit (Bld) [Volume fraction] 40.2 % Normal 36.0-46.0 [facility] Comment on above: Order Comment: Speci men Type: BLOOD SPECIMEN Ordering Facility: [facility] Address: [address] [place] [address] Performed By: #### 5 7021-8 #### [facility] CLIA [id number] [address] [place] [address] [place] Hemoglobin (Bld) [Mass/Vol] 13.6 g/dL Normal 11.5-15.5 [facility] Comment on above: Order Comment: Speci men Type: BLOOD SPECIMEN Ordering Facility: [facility] Address: [address] [place] [address] Performed By: #### 5 7021-8 #### [facility] CLIA [id number] [address] [id number] [place] Lymphocytes (Bld) [#/Vol] 2.55 10*3/uL Normal 1.00-4.00 [facility] Comment on above: Order Comment: Speci men Type: BLOOD SPECIMEN [facility]ing [facility]: [facility] Address: [address] [place] [address] Performed By: #### 5 7021-8 #### [facility] CLIA [id number] [address] Lymphocytes/100 WBC (Bld) 34.9 % Normal [facility] Comment on above: Order Comment: Speci men Type: BLOOD SPECIMEN [facility]ing Facility: [facility] Address: [address] [place] [address] Performed By: #### 5 7021-8 #### [facility] CLIA [id number] [address] [place] [address] [place] MCH (RBC) [Entitic mass] 32.2 pg Normal 26.0-34.0 [facility] Comment on above: Order Comment: Speci men Type: BLOOD SPECIMEN Ordering Facility: [facility] Address: [address] [place] [address] Performed By: #### 5 7021-8 #### [facility] CLIA [id number] [address] [place] [address] [facility] MCHC (RBC) [Mass/Vol] 33.8 g/dL Normal 30.5-36.0 [facility] Comment on above: Order Comment: Speci men Type: BLOOD SPECIMEN [facility]ing [facility] Address: [address] [place] [address] Performed By: #### 5 7021-8 #### [facility] CLIA [id number] [address] [place] MCV (RBC) [Entitic vol] 95.0 fL Normal 80.0-100.0 [facility] Comment on above: Order Comment: Speci men Type: BLOOD SPECIMEN Ordering Facility: [facility] Address: [address] [place] [address] Performed By: #### 5 7021-8 #### [facility] CLIA [id number] [address] [place] [address] [place] Monocytes (Bld) [#/Vol] 0.58 10*3/uL Normal <0.87 [facility] Comment on above: Order Comment: Speci men Type: BLOOD SPECIMEN [facility]ing [facility]: [facility] Address: [address] [place] [address] Performed By: #### 5 7021-8 #### [facility] CLIA [id number] [address] [place] [address] [place] Monocytes/100 WBC (Bld) 7.9 % Normal [facility] Comment on above: Order Comment: Speci men Type: BLOOD SPECIMEN [facility]ing Facility[facility] Address: [address] [place] [address] Performed By: #### 5 7021-8 #### [facility] CLIA [id number] [address] [place], [place] [address] [place] [address] [place] Neutrophils (Bld) [#/Vol] 4.08 10*3/uL Normal 1.45-7.50 [facility] Comment on above: Order Comment: Speci men Type: BLOOD SPECIMEN [facility] Address: [address] [place] [address] Performed By: #### 5 7021-8 #### [facility] CLIA [id number] [address] [place] [address] [place] Neutrophils/100 WBC (Bld) 55.9 % Normal [facility] Comment on above: Order Comment: Speci men Type: BLOOD SPECIMEN [facility] Address: [address] [place] [address] Performed By: #### 5 7021-8 #### [facility] CLIA [id number] [address] [place] [address] [place] Platelet mean volume (Bld) [Entitic vol] 9.9 fL Normal 9.0-12.7 [facility] Comment on above: Order Comment: Speci men Type: BLOOD SPECIMEN [facility] Address: [address] [place] [address] Performed By: #### 5 7021-8 #### [facility] CLIA [id number] [address] [place] [address] [place] Platelets (Bld) [#/Vol] 416 10*3/uL High 150-400 [facility] Comment on above: Order Comment: Speci men Type: BLOOD SPECIMEN [facility] Address: [address] [place] [address] Performed By: #### 5 7021-8 #### [facility] CLIA [id number] [address] [place] [address] [place] RBC (Bld) [#/Vol] 4.23 10*6/uL Normal 3.90-5.20 [facility] Comment on above: Order Comment: Speci men Type: BLOOD SPECIMEN [facility] Address: [address] [place] [address] Performed By: #### 5 7021-8 #### [facility] CLIA [id number] [address] [place] [address] OF [facility] WBC (Bld) [#/Vol] 7.30 10*3/uL Normal 3.70-11.00 [facility] Comment on above: Order Comment: Speci men Type: BLOOD SPECIMEN [facility] Address: [address] [place] [address] Performed By: #### 5 7021-8 #### [facility] CLIA [id number] [address] [place] Basophils (Bld) [#/Vol] <0.11 k/uL [facility] Basophils/100 WBC (Bld) 0.3 % [facility] Differential cell count method Nom (Bld) Auto [facility] Eosinophils (Bld) [#/Vol] 0.07 10*3/uL <0.46 k/uL [facility] Eosinophils/100 WBC (Bld) 1.0 % [facility] Erythrocyte distribution width (RBC) [Ratio] 12.3 % 11.5 - 15.0 % [facility] Hematocrit (Bld) [Volume fraction] 40.2 % 36.0 - 46.0 % [facility] Hemoglobin (Bld) [Mass/Vol] 13.6 g/dL 11.5 - 15.5 g/dL [facility] Lymphocytes (Bld) [#/Vol] 2.55 10*3/uL 1.00 - 4.00 k/uL [facility] Lymphocytes/100 WBC (Bld) 34.9 % [facility] MCH (RBC) [Entitic mass] 32.2 pg 26.0 - 34.0 pg [facility] MCHC (RBC) [Mass/Vol] 33.8 g/dL 30.5 - 36.0 g/dL [facility] MCV (RBC) [Entitic vol] 95.0 fL 80.0 - 100.0 fL [facility] Monocytes (Bld) [#/Vol] 0.58 10*3/uL <0.87 k/uL [facility] Monocytes/100 WBC (Bld) 7.9 % [facility] Neutrophils (Bld) [#/Vol] 4.08 10*3/uL 1.45 - 7.50 k/uL [facility] Neutrophils/100 WBC (Bld) 55.9 % [facility] Platelet mean volume (Bld) [Entitic vol] 9.9 fL 9.0 - 12.7 fL [facility] Platelets (Bld) [#/Vol] 416 10*3/uL High 150 - 400 k/uL [facility] RBC (Bld) [#/Vol] 4.23 10*6/uL 3.90 - 5.2 0 m/uL [facility] WBC (Bld) [#/Vol] 7.30 10*3/uL 3.70 - 11. 00 k/uL [facility] CNOVon 08-28-2022 CNOV Office Visit (CHRISTOPHERPHUONG) KAIA BARRERA ([id number]) 1995 F Date Time Provider Department 08/28/22 3:40 PM MARISSA BLACKWOOD During your visit today, we recorded the following information about you: Temperature Pulse Blood pressure Weight 98.8 degrees 84/minute 122/70 62.1 kg Height 1.645 m Marissa Blackwood APRN.CNP 09/02/2022 7:27 PM Signed This note was created using 5th Fingerriter. Subjective Kaia Barrera is a 27 year old female here today for fatigue. I reviewed past medical, surgical, social, and family histories today and updated chart. Allergies, chronic medications, and supplements were also reviewed. Hot flashes Nausea Fatigue Irritability Night sweats Mother went through menopause age 35 She is on the 3 month control but does not stop, takes them all the way through This was to help with the cramping because she is on tramadol for the cramping Has been on prn tramadol since age 13 Last 30 pill Rx lasted a year States it doesn't really help with the cramping 1 week of spotting 2-3 weeks ago was last period Has break through bleeding Has never been At this point she is not interested in getting She is wondering if she has vitamin deficiency Has single gene mutation MTHFR Hx iron and B12 deficient She does not eat red meat, beans or lentils Not as much vegetables as she should Does eat a lot of broccoli Eats fruits Chicken breast mostly, some ham/certain cuts of pork No beef, no fish Not a ton of dairy - some yogurt, does eat cheese She is supplementing with Boost drinks occasionally She exercises 4-5 times a week weight lifting She is losing some weight, has lost about 3-5 lbs in the last month 10 lbs since last October Insomnia - Takes her trazodone as needed - 3-4 times per week It works well Wakes up every 1-2 hours, doesn't impact her as much any more Right now feels good with her sleep overall Has been on spironolactone 100 mg daily for her acne for years, since she was a teenager, doing well on it Nausea - Has acid reflux symptoms everyday She is using nexium or omeprazole OTC They help At times gets won't be able to swallow and food will get stuck She did see a GI once in the past and diagnosed with IBS, has never had upper GI evaluation Has always been an anxious person Last few years was really bad Was on a lot of medication, had severe w/d symptoms coming off them Valium, effexor, latuda, lamictal Meds never really helped Heart racing, pit in the bottom of stomach Went through counseling and learned techniques that help Denies feeling depressed She is Working Going to school - masters program PAST MEDICAL HISTORY Diagnosis Date Chronic low back pain Chronic migraine without aura without status migrainosus, not intractable 2014 Generalized anxiety disorder 2006 Insomnia Mild episode of recurrent major depressive disorder (HCC) 2019 Mild intermittent asthma without complication 2006 MRSA infection 2012 2013 Restless legs Scoliosis PAST SURGICAL HISTORY Procedure Laterality Date INCISION AND DRAINAGE ABSCESS SIMPLE/SINGLE 09-08-13 right thigh ALLERGIES Azithromycin, Cephalexin, Gluten, Penicillins, Sulfamethoxazole, Sulfamethoxazole-Trime thoprim, and Trimethoprim MEDICATIONS ferrous sulfate 325 mg (65 mg iron) tablet Take 325 mg by mouth twice daily with meals. esomeprazole (NEXIUM) 20 mg capsule Take 1 capsule by mouth once daily. ONE HOUR BEFORE EATING. tiZANidine (ZANAFLEX) 4 mg tablet TAKE 1 TABLET BY MOUTH TWICE A DAY NEEDED verapamil SR (CALAN SR, ISOPTIN SR) 180 mg CR tablet Take 1 tablet by mouth once daily. traZODone HCl (DESYREL) 300 mg tablet Take 1 tablet by mouth daily at bedtime. naproxen (NAPROSYN) 500 mg tablet Take 1 tablet by mouth twice daily as needed for pain (FOR PAIN - TAKE WITH FOOD.). acetaminophen 325 mg-caffeine 40 mg-butalbital 50 mg (FIORICET) per capsule Take 1 capsule by mouth every 4 hours as needed. NORGESTIMATE-ETHINYL ESTRADIOL 0.18/0.215/0.25 MG-35 MCG,21, TAB Norgestimate-Ethinyl Estradiol Active 1 TAB daily October 07, 2019 3:52pm PROAIR HFA 90 mcg/actuation inhaler spironolactone (ALDACTONE) 100 mg tablet traMADol (ULTRAM) 50 mg tablet Take 50 mg by mouth every 6 hours as needed for pain. FAMILY HISTORY Problem Relation Age of Onset Hypothyroidism Mother Hypothyroidism Father Insomnia Father Dementia Maternal Grandmother Diabetes Maternal Grandfather Polyps Maternal Grandfather Hypertension Paternal Grandfather Social History Tobacco Use Smoking status: Never Smokeless tobacco: Never Substance Use Topics Alcohol use: Not Currently Drug use: Never Review of Systems Constitutional: Positive for diaphoresis and fatigue. Negative for appetite change, chills, fever and unexpect (more content not included)... Normal [facility] Comprehensive metabolic 2000 panelon 08-28-2022 Albumin [Mass/Vol] 4.7 g/dL Normal 3.9-4.9 [facility] Comment on above: Order Comment: Speci les Type: BLOOD SPECIMEN [facility] Address: [address] [place] [address] Performed By: #### 2 777-1, 93131-2, , 3015-3 #### [facility] CLIA [id number] [address] [place] [address] [place] ALP [Catalytic activity/Vol] 66 U/L Normal 34-123 [facility] Comment on above: Order Comment: Speci les Type: BLOOD SPECIMEN [facility] Address: [address] [place] [address] Performed By: #### 2 777-1, 53566-4, , 3015-3 #### [facility] CLIA [id number] [address] [place] [address] [place] ALT With P-5'-P [Catalytic activity/Vol] 10 U/L Normal 7-38 [facility] Comment on above: Order Comment: Speci men Type: BLOOD SPECIMEN [facility] Address: [address] [place] [address] Performed By: #### 2 777-1, 83135-9, , 3 #### [facility] CLIA [id number] [address] [place] [address] [place] Anion gap [Moles/Vol] 13 mmol/L Normal 9-18 [facility] Comment on above: Order Comment: Speci men Type: BLOOD SPECIMEN [facility] Address: [address] [place], [place] [address] Performed By: #### 2 777-1, 81405-2, 27460-5, 6-3 #### [facility] CLIA [id number] [address] [place] [address] [place] AST With P-5'-P [Catalytic activity/Vol] 17 U/L Normal 13-35 [facility] Comment on above: Order Comment: Speci men Type: BLOOD SPECIMEN [facility] Address: [address] [place] [address] Performed By: #### 2 777-1, 20794-9, 21825-5, 6-3 #### [facility] CLIA [id number] [address] [place] [address] [place] Bilirubin [Mass/Vol] 0.5 mg/dL Normal 0.2-1.3 [facility] Comment on above: Order Comment: Speci men Type: BLOOD SPECIMEN [facility] Address: [address] [place] [address] Performed By: #### 2 777-1, 05040-4, , 3015-3 #### [facility] CLIA [id number] [address] [place] [address] [place] Calcium [Mass/Vol] 9.8 mg/dL Normal 8.5-10.2 [facility] Comment on above: Order Comment: Speci men Type: BLOOD SPECIMEN [facility] Address: [address] [place], [place] [address] Performed By: #### 2 777-1, 73043-3, , 3015-3 #### [facility] CLIA [id number] [address] [place] [address] [place] Chloride [Moles/Vol] 98 mmol/L Normal 97-105 [facility] Comment on above: Order Comment: Speci men Type: BLOOD SPECIMEN Order[facility] Address: [address] [place], [place] [address] Performed By: #### 2 777-1, 32972-4, , 3 #### [facility] CLIA [id number] [address] [place] [address] [place] CO2 [Moles/Vol] 23 mmol/L Normal 22-30 [facility] Comment on above: Order Comment: Speci men Type: BLOOD SPECIMEN Ordering Facility[facility] Address: [address] [place], [place] [address] Performed By: #### 2 777-1, 74268-1, , 3016-01 #### [facility] CLIA [id number] [address] [place] [address] [place] Creatinine [Mass/Vol] 0.84 mg/dL Normal 0.58-0.96 [facility] Comment on above: Order Comment: Speci men Type: BLOOD SPECIMEN [facility] Address: [address] [place], [place] [address] Performed By: #### 2 777-1, 83815-5, , 3 #### [facility] CLIA [id number] [address] [place] [address] [facility] [place] ESTIMATED GLOMERULAR FILTRATION RATE 97 mL/min/1.73m??? Normal >=60 [facility] Comment on above: Order Comment: Speci men Type: BLOOD SPECIMEN Ordering Facility: [facility] Address: [address] [place], [place] [address] Result Comment: Yanique mated Glomerular Filtration Rate (eGFR) is calculated using the 2020 CKD-EPI creatinine equation. This equation utilizes serum creatinine, sex, and age as parameters. The creatinine assay has traceable calibration to isotope dilution-mass spectrometry. Refer to KDIGO guidelines for clinical interpretation. In patients with unstable renal function, e.g. those with acute kidney injury, the eGFR may not accurately reflect actual GFR. Performed By: #### 2 777-1, 60416-9, , 3015-3 #### [facility] CLIA [id number] [address] [place] [address] [place] Glucose [Mass/Vol] 92 mg/dL Normal 74-99 [facility] Comment on above: Order Comment: Jared saldana Type: BLOOD SPECIMEN Ordering Facility: [facility] Address: [address] [place] [address] Result Comment: The [place] [employer] (ADA) provides guidance for cutoff values for fasting glucose and random glucose. The ADA defines fasting as no caloric intake for at least 8 hours. Fasting plasma glucose results between 100 to 125 mg/dL indicate increased risk for diabetes (prediabetes). Fasting plasma glucose results greater than or equal to 126 mg/dL meet the criteria for diagnosis of diabetes. In the absence of unequivocal hyperglycemia, results should be confirmed by repeat testing. In a patient with classic symptoms of hyperglycemia or hyperglycemic crisis, random plasma glucose results greater than or equal to 200 mg/dL meet the criteria for diagnosis of diabetes. Reference: Standards of Medical Care in Diabetes 2016, [place] [employer]. Diabetes Care. 2016.39(Suppl 1). Performed By: #### 2 777-1, 00676-6, , 3015-3 #### [facility] CLIA [id number] [address] [place] [address] [place] Potassium [Moles/Vol] 4.0 mmol/L Normal 3.7-5.1 [facility] Comment on above: Order Comment: Jared saldana Type: BLOOD SPECIMEN Ordering Facility: [facility] Address: [address] [place], [place] [address] Performed By: #### 2 777-1, 93962-4, 28018-9, 6-3 #### [facility] CLIA [id number] [address] [place] [address] [place] Protein [Mass/Vol] 7.9 g/dL Normal 6.3-8.0 [facility] Comment on above: Order Comment: Jared saldana Type: BLOOD SPECIMEN Ordering Facility: [facility] Address: [address] [place], [place] [id number] Performed By: #### 2 777-1, 88677-4, 59279-5, 3016-3 #### [facility] CLIA [id number] [address] [place] [address] [place] Sodium [Moles/Vol] 134 mmol/L Low 136-144 [facility] Comment on above: Order Comment: Speci men Type: BLOOD SPECIMEN Ordering Facility: [facility] Address: [address] [place] [phone] Performed By: #### 2 777-1, 87262-0, 09208-8, 6-3 #### [facility] CLIA [id number] [address] [place] [address] [place] Urea nitrogen [Mass/Vol] 15 mg/dL Normal 7-21 [facility] Comment on above: Order Comment: Speci men Type: BLOOD SPECIMEN Ordering Facility: [facility] Address: [address] [place] [phone] Performed By: #### 2 777-1, 85699-0, 27902-1, 6-3 #### [facility] CLIA [id number] [address] [place] [address] [place] Albumin [Mass/Vol] 4.7 g/dL 3.9 - 4.9 g/dL [facility] ALP [Catalytic activity/Vol] 66 U/L 34 - 123 U/L [facility] ALT With P-5'-P [Catalytic activity/Vol] 10 U/L 7 - 38 U/L [facility] Anion gap [Moles/Vol] 13 mmol/L 9 - 18 mmol/L [facility] AST With P-5'-P [Catalytic activity/Vol] 17 U/L 13 - 35 U/L [facility] Bilirubin [Mass/Vol] 0.5 mg/dL 0.2 - 1 .3 mg/dL [facility] Calcium [Mass/Vol] 9.8 mg/dL 8.5 - 10. 2 mg/dL [facility] Chloride [Moles/Vol] 98 mmol/L 97 - 10 5 mmol/L [facility] CO2 [Moles/Vol] 23 mmol/L 22 - 30 mmol/L [facility] Creatinine [Mass/Vol] 0.84 mg/dL 0.58 - 0.96 mg/dL [facility] Estimated Glomerular Filtration Rate 97 mL/min/1.73m >=60 mL/min/1.73m [facility] Glucose [Mass/Vol] 92 mg/dL 74 - 99 mg/dL [facility] Potassium [Moles/Vol] 4.0 mmol/L 3.7 - 5.1 mmol/L [facility] Protein [Mass/Vol] 7.9 g/dL 6.3 - 8.0 g/dL [facility] Sodium [Moles/Vol] 134 mmol/L Low 136 - 144 mmol/L [facility] Urea nitrogen [Mass/Vol] 15 mg/dL 7 - 21 mg/dL [facility] ESTROGEN FRACTION BLon 08-28 ESTRADIOL 11.3 pg/mL Normal [facility] Comment on above: Order Comment: Speci men Type: BLOOD SPECIMEN Ordering Facility: [facility] Address: [address] [place] [address] Result Comment: REFE RENCE INTERVAL: Estradiol by [employer]or [employer]er For a complete set of all established reference intervals, refer to ltd.[employer]/Tests/Pub/[id number]. This test was developed and its performance characteristics determined by [employer] It has not been cleared or approved by the US Food and Drug Administration. This test was performed in a CLIA certified laboratory and is intended for clinical purposes. Performed By: #### E STGEN #### [facility] CLIA [id number] [address] [place] [address] ESTROGENS TOTAL 31.9 pg/mL Normal [facility] Comment on above: Order Comment: Speci men Type: BLOOD SPECIMEN Ordering Facility: [facility] Address: [address] [place] [address] Result Comment: Refe rence interval of estrogens (pg/mL) Estrone Estradiol Total Estrogens Early follicular <150.0 30.0-100.0 30.0-250.0 Late follicular 100.0-250.0 100.0-400.0 200.0-650.0 Luteal <200.0 50.0-150.0 50.0-350.0 Post-menopausal 3.0-32.0 2.0-21.0 5.0-52.0 REFERENCE INTERVAL: Estrogens Total Calculation For a complete set of all established reference intervals, refer to [employer]/Tests/Pub/[id number]. Performed By: [employer] [address] [place] [address] Doctor'S Assistant: Rogelio Romero MD, PhD Performed By: #### E STGEN #### [facility] CLIA [id number] [address] [place] [address] ESTRONE 20.6 pg/mL Normal [facility] Comment on above: Order Comment: Speci men Type: BLOOD SPECIMEN Ordering Facility: [facility] Address: [address] [place] [address] Result Comment: INTERPRETIVE INFORMATION: Estrone by Contractor Buyer For a complete set of all established reference intervals, refer to [employer]/Tests/Pub/[id number]. This test was developed and its performance characteristics determined by [employer] It has not been cleared or approved by the US Food and Drug Administration. This test was performed in a CLIA certified laboratory and is intended for clinical purposes. Performed By: #### E STGEN #### [employer] CLIA [id number] [address] [place] [id number] FSH SerPl-aCncon 08-28-2022 Follitropin Qn 0.9 m[IU]/mL Normal See comment [facility] Comment on above: Order Comment: Speci men Type: BLOOD SPECIMENOrdering Facility: [facility] Address: [address] [place] [address] Result Comment: Refe rence range: Follicular: 3.5-12.5 mIU/mL Midcycle: 4.7-21.5 mIU/mL Luteal: 1.7-7.7 mIU/mL [facility]: 25.8-134.8 mIU/mL Performed By: #### 1 4338-8, 2132-9, 91619-8, 12453-1 ####[facility] [id number] [address] [place] Ferritin SerPl-mCncon 2021 Ferritin [Mass/Vol] 28.2 ng/mL Normal 14.7-205.1 [facility] Comment on above: Order Comment: Speci men Type: BLOOD SPECIMENOrdering Facility: [facility] Address: [address] [place] [address] Performed By: #### 2 276-4, 04231-8 ####[facility] [id number] [address] [place] Folate SerPl-mCncon 08-28-20 22 Folate [Mass/Vol] 14.0 ng/mL Normal >4.7 [facility] Comment on above: Order Comment: Speci men Type: BLOOD SPECIMENOrdering Facility: [facility] Address: [address] [place] [address] Performed By: #### 2 284-8 ####[facility] [id number] [address] [place] Iron and Iron binding capaci ty panel 08-28-2022 Iron [Mass/Vol] 481 ug/dL High 41-186 [facility] Comment on above: Order Comment: Speci men Type: BLOOD SPECIMENOrdering Facility: [facility] Address: [address] [place] [address] Performed By: #### 2 276-4, 24996-5 ####[facility] [id number] [address] [place] Iron binding capacity [Mass/Vol] 500 ug/dL High 232-386 [facility] Comment on above: Order Comment: Speci men Type: BLOOD SPECIMENOrdering Facility: [facility] Address: [address] [place] [address] Performed By: #### 2 276-4, 72541-8 ####[facility] [id number] [address] STATES OF [facility] Iron saturation [Mass fraction] 96.2 % High 15.0-57.0 [facility] Comment on above: Order Comment: Speci men Type: BLOOD SPECIMENOrdering Facility: [facility] Address: [address] [place] [address] Performed By: #### 2 276-4, 62009-7 ####[facility] [id number] [place] [address] [place] LH SerPl-aCncon 08-28-2022 Lutropin Qn m[IU]/mL Normal See comment [facility] Comment on above: Order Comment: Speci men Type: BLOOD SPECIMENOrdering Facility: [facility] Address: [address] [place] [address] Result Comment: Refe rence range: Follicular: 1.9-12.5 Midcycle: 8.7-76.3 Luteal: 0.5-16.9 : <0.1-1.5 [facility]: 15.9-54.0 Contraceptives: 0.7-5.6 Performed By: #### 1 4338-8, 2132-9, 90046-1, 96579-7 ####[facility]IA [id number] [place] [address] [place] MAGNESIUM BLDon 08-28-2022 Magnesium [Mass/Vol] 1.8 mg/dL 1.7 - 2 .3 mg/dL [facility] Magnesium SerPl-mCncon 08-28 Magnesium [Mass/Vol] 1.8 mg/dL Normal 1.7-2.3 [facility] Comment on above: Order Comment: Speci men Type: BLOOD SPECIMEN Ordering Facility: [facility] Address: [address] [place] [address] Performed By: #### 2 777-1, 56716-8, 22932-2, 3016-3 #### [facility] CLIA [id number] [address] [place] [address] [place] Methylmalonate SerPl-sCncon 08-28-2022 Methylmalonate [Moles/Vol] 154 nmol/L Normal 79-376 [facility] Comment on above: Order Comment: Speci men Type: BLOOD SPECIMEN Ordering Facility: [facility] Address: [address] [place] [phone] Result Comment: This test was developed and its performance characteristics determined by [facility]'s Gian Watters [facility] [place] ([facility]). It has not been cleared or approved by the FDA. -[facility] is regulated under CLIA as qualified to perform high-complexity testing. This test is used for clinical purposes. It should not be regarded as investigational or for research. Performed By: #### 1 3964-2 #### [facility] CLIA [id number] [address] [place] [address] [place] PHOSPHORUS INORGANICon 08-28 Phosphate [Mass/Vol] 2.5 mg/dL Low 2.7 - 4 .8 mg/dL [facility] Phosphate SerPl-mCncon 08-28 Phosphate [Mass/Vol] 2.5 mg/dL Low 2.7-4.8 [facility] Comment on above: Order Comment: Jared saldana Type: BLOOD SPECIMEN Ordering Facility: [facility] Address: [address] [place], [place] [phone] Performed By: #### 2 777-1, 49543-9, 04139-6, 3016-3 #### [facility] CLIA [id number] [address] [place] [address] [place] Prealbumin [Mass/Vol]on 08-19 Prealbumin Nephelometry [Mass/Vol] 28 mg/dL Normal 17-36 [facility] Comment on above: Order Comment: Jared [facility] Type: BLOOD SPECIMENOrdering Facility: [facility] Address: [address] [place], [place] [phone] Performed By: #### 1 4338-8, 2132-9, 52580-7, 66854-7 ####[facility]IA [id number] [place] [address] [place] TSH BLDon 08-28-2022 TSH Qn 1.760 m[IU]/L 0.270 - 4.200 mIU/L [facility] TSH SerPl-aCncon 08-28-2022 TSH Qn 1.760 m[IU]/L Normal 0.270-4.200 [facility] Comment on above: Order Comment: Jared saldana Type: BLOOD SPECIMENOrdering Facility: [facility] Address: [address] [place] [address] Result Comment: If t he patient is , TSH reference range varies by gestational period: First Trimester (weeks 9-12): 0.180-2.990 mIU/L Second Trimester: 0.110-3.980 mIU/L Third Trimester: 0.480-4.710 mIU/L Jefe Leo et al. A Practical Approach for the Verifications and Determination of Site- and Trimester-Specific Reference Intervals for Thyroid Function tests in . Thyroid, 2019:29:3:412-420. Zay Perez, et al. 2017 Guidelines of the [place] Thy[employer] Association for the Diagnosis and Management of Thyroid Disease during and the . Thyroid, 2017:27:3:315-389. Performed By: #### 2 777-1, 51666-3, 87871-8, 3016-3 ####[facility] [id number] [place] [address] [place] Vit B12 [facility] 022 Cobalamin (Vitamin B12) [Mass/Vol] 431 pg/mL Normal 232-1245 [facility] Comment on above: Order Comment: Jared saldana Type: BLOOD SPECIMENOrdering Facility: [facility] Address: [address] [place] [address] Performed By: #### 1 4338-8, 2132-9, 04773-5, 66554-8 ####[facility] [id number] [place], [place] [id number] [place] [address] [place] Leidy 08-23-2022 MONSE Telephone (KARINA) KAIA BARRERA ([id number]) 1995 F Date Time Provider Department 08/23/22 MARISSA BLACKWOOD During your visit today, we recorded the following information about you: Amber ChaokatymikiBRINDA 08/23/2022 1:54 PM Signed Patient lm on vm stating she is taking OTC Nexium and was wondering if you can prescribe esomeprazole for her.. She states it is expensive and thinks it would be cheaper if it was prescribed. Amber ChaokatymikiBRINDA APRN.CNP 08/24/2022 1:13 PM Signed No problem. RYLIE Craft APRN.CNP 08/24/2022 1:13 PM Signed Addended by: MARISSA BLACKWOOD on: 08/24/2022 01:13 PM Modules accepted: Orders Allergies As of Date: 08/23/2022 Noted Allergy Reaction AZITHROMYCIN 10/07/2019 6 - Diarrhea 14 - Other: See Comments CEPHALEXIN 10/07/2019 8 - GI Upset 11 - Vomiting GLUTEN 10/07/2019 16 - Unknown PENICILLINS 07/28/2022 6 - Diarrhea SULFAMETHOXAZOLE 10/07/2019 2 - Rash SULFAMETHOXAZOLE-TRIME THOPRIM 07/28/2022 2 - Rash 11 - Vomiting TRIMETHOPRIM 10/07/2019 2 - Rash Date Reviewed: 07/28/2022 Reviewed by: Marissa Blackwood APRN.CNP - Fully Assessed Reason for Visit: Patient Question [1477] Order(s):esomeprazole (NEXIUM) 20 mg capsuleTake 1 capsule by mouth once daily. ONE HOUR BEFORE EATING.Disp: 90 capsuleRfl: 3 Prescriptions as of 08/24/2022 - tiZANidine (ZANAFLEX) 4 mg tablet TAKE 1 TABLET BY MOUTH TWICE A DAY NEEDED - esomeprazole (NEXIUM) 20 mg capsule Take 1 capsule by mouth once daily. ONE HOUR BEFORE EATING. - verapamil SR (CALAN SR, ISOPTIN SR) 180 mg CR tablet Take 1 tablet by mouth once daily. - traZODone HCl (DESYREL) 300 mg tablet Take 1 tablet by mouth daily at bedtime. - naproxen (NAPROSYN) 500 mg tablet Take 1 tablet by mouth twice daily as needed for pain (FOR PAIN - TAKE WITH FOOD.). - acetaminophen 325 mg-caffeine 40 mg-butalbital 50 mg (FIORICET) per capsule Take 1 capsule by mouth every 4 hours as needed. - NORGESTIMATE-ETHINYL ESTRADIOL 0.18/0.215/0.25 MG-35 MCG,21, TAB Norgestimate-Ethinyl Estradiol Active 1 TAB daily 84 October 07, 2019 3:52pm - PROAIR HFA 90 mcg/actuation inhaler - spironolactone (ALDACTONE) 100 mg tablet - traMADol (ULTRAM) 50 mg tablet Take 50 mg by mouth every 6 hours as needed for pain. Problem List As Of Date 08/23/2022 Noted Resolved SPRAIN LUMBOSACRAL [S33.9XXA] 08/02/2007 Back pain affecting [O99.891, M54.9] 07/12/2022 Insomnia [G47.00] 07/28/2022 Mild intermittent asthma without complication [*2006 Chronic migraine without aura without status mi*2014 Chronic bilateral low back pain without sciatic*07/28/2022 Chronic upper back pain [M54.9, G89.29] 07/28/2022 Allergic rhinitis, seasonal [J30.2] 07/28/2022 Asthma [J45.909] 07/28/2022 Back spasm [M62.830] 07/28/2022 Family history of narcolepsy [Z82.0] 07/28/2022 Anxiety [F41.9] 07/28/2022 Hypoglycemia [E16.2] 07/28/2022 Irritable bowel syndrome [K58.9] 07/28/2022 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 ONE HOUR BEFORE EATING. Encounter Status:Closed by AMBER JOVEL on 08/23/22 [facility] Leidy 08-09-2022 MONSE Telephone (KARINA) OTONIELKAIA NORRIS ([id number]) 1995 F Date Time Provider Department 08/09/22 MARISSA BLACKWOOD During your visit today, we recorded the following information about you: Sanaz Bowling 08/09/2022 3:54 PM Signed Pt dropped off form to be filled out. It is health screening for insurance. 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 Form is in folder in front office. Marissa Blackwood APRN.ARIANNA 08/09/2022 5:20 PM Signed Thank you, form is completed and signed. Marissa Blackwood APRN.ARIANNA Cortez MA 08/10/2022 8:29 AM Signed Patient is informed and form placed up front to be picked up. Pam Cortez MA Allergies As of Date: 08/09/2022 Noted Allergy Reaction AZITHROMYCIN 10/07/2019 6 - Diarrhea 14 - Other: See Comments CEPHALEXIN 10/07/2019 8 - GI Upset 11 - Vomiting GLUTEN 10/07/2019 16 - Unknown PENICILLINS 07/28/2022 6 - Diarrhea SULFAMETHOXAZOLE 10/07/2019 2 - Rash SULFAMETHOXAZOLE-TRIME THOPRIM 07/28/2022 2 - Rash 11 - Vomiting TRIMETHOPRIM 10/07/2019 2 - Rash Date Reviewed: 07/28/2022 Reviewed by: Marissa Blackwood APRN.WORKFORCE ADVISOR - Fully Assessed Reason for Visit: form for health screening [Other] Cmt: Pt dropped off form to be filled out for health screening for Ins. Prescriptions as of 08/10/2022 - verapamil SR (CALAN SR, ISOPTIN SR) 180 mg CR tablet Take 1 tablet by mouth once daily. - traZODone HCl (DESYREL) 300 mg tablet Take 1 tablet by mouth daily at bedtime. - tiZANidine (ZANAFLEX) 4 mg tablet Take 1 tablet by mouth twice daily as needed. - naproxen (NAPROSYN) 500 mg tablet Take 1 tablet by mouth twice daily as needed for pain (FOR PAIN - TAKE WITH FOOD.). - acetaminophen 325 mg-caffeine 40 mg-butalbital 50 mg (FIORICET) per capsule Take 1 capsule by mouth every 4 hours as needed. - NORGESTIMATE-ETHINYL ESTRADIOL 0.18/0.215/0.25 MG-35 MCG,21, TAB Norgestimate-Ethinyl Estradiol Active 1 TAB daily October 07, 2019 3:52pm - PROAIR HFA 90 mcg/actuation inhaler - spironolactone (ALDACTONE) 100 mg tablet - traMADol (ULTRAM) 50 mg tablet Take 50 mg by mouth every 6 hours as needed for pain. Problem List As Of Date 08/09/2022 Noted Resolved SPRAIN LUMBOSACRAL [S33.9XXA] 08/02/2007 Back pain affecting [O99.891, M54.9] 07/12/2022 Insomnia [G47.00] 07/28/2022 Mild intermittent asthma without complication [*2006 Chronic migraine without aura without status mi*2014 Chronic bilateral low back pain without sciatic*07/28/2022 Chronic upper back pain [M54.9, G89.29] 07/28/2022 Allergic rhinitis, seasonal [J30.2] 07/28/2022 Asthma [J45.909] 07/28/2022 Back spasm [M62.830] 07/28/2022 Family history of narcolepsy [Z82.0] 07/28/2022 Anxiety [F41.9] 07/28/2022 Hypoglycemia [E16.2] 07/28/2022 Irritable bowel syndrome [K58.9] 07/28/2022 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] 07/28/2022 Palpitations [R00.2] 07/28/2022 Scoliosis [M41.9] 07/28/2022 Status migrainosus [G43.901] 07/28/2022 Syncope [R55] 07/28/2022 Encounter Status:Closed by SANAZ BOWLING on 08/09/22 [facility] Leidy 08-01-2022 MONSE Telephone (KARINA) [place]IA ([id number]) 1995 F Date Time Provider Department 08/01/22 MARISSA BLACKWOOD During your visit today, we recorded the following information about you: Amber Jovel MA 08/01/2022 11:06 AM Signed ----- Message from Marissa Blackwood APRN.WORKFORCE ADVISOR sent at 07/29/2022 11:45 AM EDT ----- Mild elevation of total cholesterol - likely due to high HDL which is good cholesterol. Normal glucose. RYLIE Craft MA 08/01/2022 11:06 AM Signed Pt. Aware. Amber Jovel MA Allergies As of Date: 08/01/2022 Noted Allergy Reaction AZITHROMYCIN 10/07/2019 6 - Diarrhea 14 - Other: See Comments CEPHALEXIN 10/07/2019 8 - GI Upset 11 - Vomiting GLUTEN 10/07/2019 16 - Unknown PENICILLINS 07/28/2022 6 - Diarrhea SULFAMETHOXAZOLE 10/07/2019 2 - Rash SULFAMETHOXAZOLE-TRIME THOPRIM 07/28/2022 2 - Rash 11 - Vomiting TRIMETHOPRIM 10/07/2019 2 - Rash Date Reviewed: 07/28/2022 Reviewed by: Marissa Blackwood APRN.CNP - Fully Assessed Reason for Visit: Results [95] Prescriptions as of 08/01/2022 - verapamil SR (CALAN SR, ISOPTIN SR) 180 mg CR tablet Take 1 tablet by mouth once daily. - traZODone HCl (DESYREL) 300 mg tablet Take 1 tablet by mouth daily at bedtime. - tiZANidine (ZANAFLEX) 4 mg tablet Take 1 tablet by mouth twice daily as needed. - naproxen (NAPROSYN) 500 mg tablet Take 1 tablet by mouth twice daily as needed for pain (FOR PAIN - TAKE WITH FOOD.). - acetaminophen 325 mg-caffeine 40 mg-butalbital 50 mg (FIORICET) per capsule Take 1 capsule by mouth every 4 hours as needed. - NORGESTIMATE-ETHINYL ESTRADIOL 0.18/0.215/0.25 MG-35 MCG,21, TAB Norgestimate-Ethinyl Estradiol Active 1 TAB daily October 07, 2019 3:52pm - PROAIR HFA 90 mcg/actuation inhaler - spironolactone (ALDACTONE) 100 mg tablet - traMADol (ULTRAM) 50 mg tablet Take 50 mg by mouth every 6 hours as needed for pain. Problem List As Of Date 08/01/2022 Noted Resolved SPRAIN LUMBOSACRAL [S33.9XXA] 08/02/2007 Back pain affecting [O99.891, M54.9] 07/12/2022 Insomnia [G47.00] 07/28/2022 Mild intermittent asthma without complication [*2006 Chronic migraine without aura without status mi*2014 Chronic bilateral low back pain without sciatic*07/28/2022 Chronic upper back pain [M54.9, G89.29] 07/28/2022 Allergic rhinitis, seasonal [J30.2] 07/28/2022 Asthma [J45.909] 07/28/2022 Back spasm [M62.830] 07/28/2022 Family history of narcolepsy [Z82.0] 07/28/2022 Anxiety [F41.9] 07/28/2022 Hypoglycemia [E16.2] 07/28/2022 Irritable bowel syndrome [K58.9] 07/28/2022 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] 07/28/2022 Palpitations [R00.2] 07/28/2022 Scoliosis [M41.9] 07/28/2022 Status migrainosus [G43.901] 07/28/2022 Syncope [R55] 07/28/2022 Encounter Status:Closed by AMBER JOVEL on 08/01/22 Normal [facility] CNOVon 07-28-2022 CNOV Office Visit (AGFAMPLE) KAIA BARRERA ([id number]) 1995 F Date Time Provider Department 07/28/22 3:00 PM MARISSA BLACKWOOD During your visit today, we recorded the following information about you: Temperature Pulse Respiration Blood pressure 98.1 degrees 79/minute 16/minute 110/62 Weight Height 63.9 kg 1.645 m Marissa Blackwood APRN.WORKFORCE ADVISOR 07/29/2022 3:36 PM Signed This note was created using NoteWriter. Subjective Kaia Barrera is a 27 year old female here today for well adult exam. I reviewed past medical, surgical, social, and family histories today and updated chart. Allergies, chronic medications, and supplements were also reviewed. She is concerned about back pain - it is chronic. Injured back during school - sports. Diagnosed with scoliosis and disc bulges in the past Has been having worsening back pain Most recently left latissimus dorsi muscle has been hurting x 2 weeks - may have pulled something at the gym. Feels like a tearing or pulling there. No swelling that she's aware. Hurts with twisting/bending Pain is usually in there lower back - both sides. Mostly when she lays down and relaxes - has spasms and then relaxes itself or with standing for long period of times. Also has aching pain. Pain is constant. No radiation into hips or legs. No numbness/tingling in legs/feet No weakness No bowel or bladder incontinence She also has upper back pain. Feels like this is connected to her neck, like she's scrunching her neck. Has tried posture correctors with no relief. Feels tight. She has tried flexeril, zanaflex in the past for flares PT - exercises and TENS unit Has never seen a chiropractor Has tried massage therapy Mostly takes Leona OTC Has tried acetaminophen and motrin - no relief Has tried heating pad and it does help Has tried the Blue Emu, BenGay, IcyHot, patches - they do provide temporary relief Dad had bad back, needed surgery Sister age 26 diagnosed with degenerative disc disease She has occasional neck pain and tightness in lower neck area, just above the shoulder blades. Cracks her neck and gets tingling in left hand Preventative Health: Breast cancer screening - didn't have breast exam with last pap Cervical cancer screening - Normal Pap last time checked. Gets regular exams with Christen Willard in Colorectal cancer screening - n/a Osteoporosis screening - n/a Lipid screening - 2020 Immunizations - Would like to update Tdap today Insomnia - trazodone increased to 300 mg last visit in November. Higher dose is helping better but still has issues. She was referred to sleep medicine. She has seen a specialist in the past but is hesitant due to cost of sleep study. Migraine/cluster headache - mostly managed on her verapamil. Takes fiorcet about once a month. PAST MEDICAL HISTORY Diagnosis Date Chronic migraine without aura without status migrainosus, not intractable 2014 Generalized anxiety disorder 2007 Insomnia Mild episode of recurrent major depressive disorder (HCC) 2019 Mild intermittent asthma without complication 2006 MRSA infection 2012 2013 Restless legs PAST SURGICAL HISTORY Procedure Laterality Date INCISION AND DRAINAGE ABSCESS SIMPLE/SINGLE 09-08-13 right thigh ALLERGIES Patient has no known allergies. MEDICATIONS acetaminophen 325 mg-caffeine 40 mg-butalbital 50 mg (FIORICET) per capsule Take 1 capsule by mouth every 4 hours as needed. NORGESTIMATE-ETHINYL ESTRADIOL 0.18/0.215/0.25 MG-35 MCG,21, TAB Norgestimate-Ethinyl Estradiol Active 1 TAB daily October 07, 2019 3:52pm PROAIR HFA 90 mcg/actuation inhaler spironolactone (ALDACTONE) 100 mg tablet traMADol (ULTRAM) 50 mg tablet Take 50 mg by mouth every 6 hours as needed for pain. verapamil SR (CALAN SR, ISOPTIN SR) 180 mg CR tablet Take 1 tablet by mouth once daily. traZODone HCl (DESYREL) 300 mg tablet Take 1 tablet by mouth daily at bedtime. FAMILY HISTORY Problem Relation Age of Onset Hypothyroidism Mother Hypothyroidism Father Insomnia Father Dementia Maternal Grandmother Diabetes Maternal Grandfather Polyps Maternal Grandfather Hypertension Paternal Grandfather Social History Tobacco Use Smoking status: Never Smokeless tobacco: Never Substance Use Topics Alcohol use: Not Currently Drug use: Never Review of Systems Constitutional: Negative for appetite change, chills, fatigue, fever and unexpected weight change. HENT: Negative for congestion, ear pain, rhinorrhea and sore throat. Eyes: Negative for pain, discharge, itching and visual disturbance. Respiratory: Negative for cough, shortness of breath and wheezing. Cardiovascular: Negative for chest pain, palpitations and leg swelling. Gastrointestinal: Negative for abdominal pain, constipation, diarrhea, nausea and vomiting. Musculoskeletal: Positive for b (more content not included)... Normal [facility] GLUCOSE RANDOM BLDon 022 Glucose [Mass/Vol] 87 mg/dL 74 - 99 mg/dL [facility] Glucose SerPl-mCncon 022 Glucose [Mass/Vol] 87 mg/dL Normal 74-99 [facility] Comment on above: Order Comment: Jared saldana Type: BLOOD SPECIMEN Ordering Facility: [facility] Address: [address] [place] [phone] Result Comment: The [place] Diabetes Association (ADA) provides guidance for cutoff values for fasting glucose and random glucose. The ADA defines fasting as no caloric intake for at least 8 hours. Fasting plasma glucose results between 100 to 125 mg/dL indicate increased risk for diabetes (prediabetes). Fasting plasma glucose results greater than or equal to 126 mg/dL meet the criteria for diagnosis of diabetes. In the absence of unequivocal hyperglycemia, results should be confirmed by repeat testing. In a patient with classic symptoms of hyperglycemia or hyperglycemic crisis, random plasma glucose results greater than or equal to 200 mg/dL meet the criteria for diagnosis of diabetes. Reference: Standards of Medical Care in Diabetes 2016, [place] Diabetes Association. Diabetes Care. 2016.39(Suppl 1). Performed By: #### 2 345-7 #### [facility] CLIA [id number] [address] [place], [place] [id number] [place] Lipid 1996 panelon 2 Cholesterol [Mass/Vol] 213 mg/dL High <200 [facility] Comment on above: Order Comment: Jared saldana Type: BLOOD SPECIMEN Ordering Facility: [facility] Address: [address] [address] Result Comment: <200 mg/dL, Desirable 200-239 mg/dL, Borderline high >239 mg/dL, High Performed By: #### 2 4331-1 #### [facility] CLIA [id number] [address] [place] [address] [facility] Cholesterol in HDL [Mass/Vol] 100 mg/dL Normal >39 [facility] Comment on above: Order Comment: Jared saldana Type: BLOOD SPECIMEN Ordering Facility: [facility] Address: [address] [place] [address] Result Comment: 40-5 9 mg/dL, Acceptable >59 mg/dL, High: Negative risk factor for coronary heart disease <40 mg/dL, Low: Positive risk factor for coronary heart disease Performed By: #### 2 4331-1 #### [facility] CLIA [id number] [address] [place] [address] [facility] Cholesterol in LDL [Mass/Vol] 99 mg/dL Normal <100 [facility] Comment on above: Order Comment: Jared saldana Type: BLOOD SPECIMEN Ordering Facility: [facility] Address: [address] [place] [address] Result Comment: <100 mg/dL, Optimal 100-129 mg/dL, Near optimal/above optimal 130-159 mg/dL, Borderline high 160-189 mg/dL, High >189 mg/dL, Very high Secondary prevention optimal LDL Cholesterol levels are recommended to be < 70 mg/dL Performed By: #### 2 4331-1 #### [facility] CLIA [id number] [address] [place] [address] [facility] Cholesterol in LDL/Cholesterol in HDL [Mass ratio] 0.99 {ratio} Normal <2.54 [facility] Comment on above: Order Comment: Jared saldana Type: BLOOD SPECIMEN Ordering Facility: [facility] Address: [address] [place] [address] Result Comment: Refe rence: 1. National Cholesterol Education Program ATP III Guideline At-A-Glance Quick Desk Reference: National Heart, Lung, and Blood [place]. National Institutes of Health. 2001: NIH Publication No. 01-3305. 2. An International Atherosclerosis Society position paper: global recommendations for the management of dyslipidemia: executive summary, Atherosclerosis. 2014: 232(2):410-413. Performed By: #### 2 4331-1 #### [facility] CLIA [id number] [address] [place] [address] [place] Cholesterol in VLDL [Mass/Vol] 14 mg/dL Normal <30 [facility] Comment on above: Order Comment: Speci men Type: BLOOD SPECIMEN Ordering Facility: [facility] Address: [address] [place] [address] Performed By: #### 2 4331-1 #### [facility] CLIA [id number] [address] [place] [address] [facility] Cholesterol non HDL [Mass/Vol] 113 mg/dL Normal <130 [facility] Comment on above: Order Comment: [facility] Type: BLOOD SPECIMEN Ordering Facility: [facility] Address: [address] [place] [address] Result Comment: <130 mg/dL, Optimal 130-159 mg/dL, Near optimal/above optimal 160-189 mg/dL, Borderline high 190-219 mg/dL, High >219 mg/dL, Very high Secondary prevention optimal non HDL Cholesterol levels are recommended to be <100 mg/dL Performed By: #### 2 4331-1 #### [facility] CLIA [id number] [address] [place] [address] [facility] Cholesterol.total/Ch olesterol in HDL [Mass ratio] 2.13 {ratio} Normal <5.10 [facility] Comment on above: Order Comment: [facility] Type: BLOOD SPECIMEN Ordering Facility: [facility] Address: [address] [place] [address] Performed By: #### 2 4331-1 #### [facility] CLIA [id number] [address] [place] [address] [place] FASTING TIME 18 hrs Normal [facility] Comment on above: Order Comment: Speci men Type: BLOOD SPECIMEN Ordering Facility: [facility] Address: [address] [id number] Performed By: #### 2 4331-1 #### [facility] CLIA [id number] [address] [id number] [facility] Triglyceride [Mass/Vol] 70 mg/dL Normal <150 [facility] Comment on above: Order Comment: Jared saldana Type: BLOOD SPECIMEN Ordering Facility: [facility] Address: [address] Result Comment: <150 mg/dL, Normal 150-199 mg/dL, Borderline high 200-499 mg/dL, High >499 mg/dL, Very high Performed By: #### 2 4331-1 #### [facility] CLIA [id number] [address] [phone] [facility] Cholesterol [Mass/Vol] 213 mg/dL High <200 mg/dL [facility] Cholesterol in HDL [Mass/Vol] 100 mg/dL >39 mg/dL [facility] Cholesterol in LDL [Mass/Vol] 99 mg/dL <100 mg/dL [facility] Cholesterol in LDL/Cholesterol in HDL [Mass ratio] 0.99 {ratio} <2.54 [facility] Cholesterol in VLDL [Mass/Vol] 14 mg/dL <30 mg/dL [facility] Cholesterol non HDL [Mass/Vol] 113 mg/dL <130 mg/dL [facility] Cholesterol.total/Ch olesterol in HDL [Mass ratio] 2.13 {ratio} <5.10 [facility] Fasting Time 18 hrs [facility] Triglyceride [Mass/Vol] 70 mg/dL <150 mg/dL [facility] CNOVon 11-28-2021 CNOV Office Visit (AGINTMLW) KAIA [id number]) 1995 F Date Time Provider Department 11/28/21 3:40 PM JAMEY FARIAS During your visit today, we recorded the following information about you: Temperature Pulse Respiration Blood pressure 98.3 degrees 71/minute 18/minute 110/70 Weight Height 66.3 kg 1.651 m Jamey Farias APRN.WORKFORCE ADVISOR 11/29/2021 9:02 AM Signed This note was created using 5th Fingerriter. Subjective Kaia Barrera is a 26 year old female here today for concerns regarding her insomnia. PMH asthma, migraines, acne, depression and anxiety. Insomnia: Chronic, pt reports this has been occurring for years. She feels it started after she was working for [employer] and would get up 2-3 am for work. She reports since she has not been able to sleep. Her psychiatrist has been treating this for her. She reports she has tried all otc sleep aides, ramelteon, mirtazapine, doxepin, clonopin, ativan, valium, benadryl in the past and states none of these have helped her. Reports trouble falling and staying asleep. Reports she will sleep 30-60 min at a time. Reports she will nap during the day because she is tired from not sleeping. She reports she is tired of being tired. Reports getting about 4-6 interrupted hours of sleep a night. She is taking trazodone 200 mg at bedtime. She reports this is not effective. She reports drinking one cup of coffee in am and nothing else throughout the day that has caffeine. Pt reports she will watch TV before bedtime and then will go to bed and lay there for hours. She reports last night she went to bed at 10 pm and did not follow asleep until 3 am. She reports she has tried getting up from bed and reading when cant fall asleep but states all the stuff they wanted her to do she has tried and none of it has worked. She does sleep with her dog but states she does not interfere with her sleep She reports she did see a sleep specialist in the past but cant remember when or who. Reports she has tramadol from her OB that she will take when she gets period cramps as needed. Reports she had COVID 10/24/21. Preventative: she is not interested in covid or flu vaccine. PAST MEDICAL HISTORY Diagnosis Date - Chronic migraine without aura without status migrainosus, not intractable 2014 - Generalized anxiety disorder 2006 - Mild episode of recurrent major depressive disorder (HCC) 2019 - Mild intermittent asthma without complication 2006 - MRSA infection 2012 2013 - Restless legs PAST SURGICAL HISTORY Procedure Laterality Date - I AND D ABSCESS, SINGLE 09-08-13 right thigh Family History Problem Relation Age of Onset - Hypothyroidism Mother - Hypothyroidism Father - Insomnia Father - Dementia Maternal Grandmother - Diabetes Maternal Grandfather - Polyps Maternal Grandfather - Hypertension Paternal Grandfather Social History Tobacco Use - Smoking status: Never Smoker - Smokeless tobacco: Never Used Substance Use Topics - Alcohol use: Not Currently - Drug use: Never Current Outpatient Medications on File Prior to Visit Medication Sig - verapamil SR (CALAN SR, ISOPTIN SR) 180 mg CR tablet Take 1 tablet by mouth twice daily. - acetaminophen 325 mg-caffeine 40 mg-butalbital 50 mg (FIORICET) per capsule Take 1 capsule by mouth every 4 hours as needed. - NORGESTIMATE-ETHINYL ESTRADIOL 0.18/0.215/0.25 MG-35 MCG,21, TAB Norgestimate-Ethinyl Estradiol Active 1 TAB daily October 07, 2019 3:52pm - PROAIR HFA 90 mcg/actuation inhaler - spironolactone (ALDACTONE) 100 mg tablet - traZODone (DESYREL) 100 mg tablet Take by mouth. - traMADol (ULTRAM) 50 mg tablet Take 50 mg by mouth every 6 hours as needed for pain. - benzonatate (TESSALON PERLES) 100 mg capsule Take 1 capsule by mouth three times daily as needed for cough. - LATUDA 80 mg tablet 40 mg. - rOPINIRole (REQUIP) 1 mg tablet prn No current facility-administered medications on file prior to visit. Review of Systems Constitutional: Negative for activity change, appetite change, chills, diaphoresis, fatigue, fever and unexpected weight change. Respiratory: Negative for cough, shortness of breath and wheezing. Cardiovascular: Negative for chest pain, palpitations and leg swelling. Endocrine: Negative for cold intolerance, heat intolerance, polydipsia, polyphagia and polyuria. Genitourinary: Negative for difficulty urinating. Neurological: Negative for dizziness, facial asymmetry and headaches. Psychiatric/Behavioral : Positive for sleep disturbance. Negative for agitation, confusion and dysphoric mood. The patient is not nervous/anxious. Objective BP 110/70 (BP Site: Left Arm, BP Position: Sitting, BP Cuff Size: Regular Adult) Pulse 71 Temp 36.8 ?C (98.3 ?F) (Oral) Resp 18 Ht 165.1 cm (5' 5) Wt 66.3 kg (146 lb 3.2 oz) SpO2 99% BMI 24.33 kg/m? Ph (more content not included)... Normal [facility] 10-25-2021 CNPN Telephone (AGINTMLW) KAIA BARRERA ([id number]) 1995 F Date Time Provider Department 10/25/21 JAMEY FARIAS INTKenisha During your visit today, we recorded the following information about you: Sandra Oh MA 10/25/2021 2:21 PM Signed Pt called she tested positive for COVID yesterday and continues to cough and is wanting to know if she could get Tesalon pearls sent in for her BRINDA Rodriguez, [facility] 10/25/2021 2:53 PM Signed Pt notified rx sent in Allergies As of Date: 10/25/2021 (Not on File) Date Reviewed: 09/23/2021 Reviewed by: Hoda Delvalle MA - Fully Assessed Reason for Visit: Orders [681] Order(s):benzonatate (TESSALON PERLES) 100 mg capsuleTake 1 capsule by mouth three times daily as needed for cough.Disp: 60 capsuleRfl: 0 Prescriptions as of 10/25/2021 - benzonatate (TESSALON PERLES) 100 mg capsule Take 1 capsule by mouth three times daily as needed for cough. - verapamil SR (CALAN SR, ISOPTIN SR) 180 mg CR tablet Take 1 tablet by mouth twice daily. - acetaminophen 325 mg-caffeine 40 mg-butalbital 50 mg (FIORICET) per capsule Take 1 capsule by mouth every 4 hours as needed. - NORGESTIMATE-ETHINYL ESTRADIOL 0.18/0.215/0.25 MG-35 MCG,21, TAB Norgestimate-Ethinyl Estradiol Active 1 TAB daily 84 October 07, 2019 3:52pm - PROAIR HFA 90 mcg/actuation inhaler - LATUDA 80 mg tablet 40 mg. - rOPINIRole (REQUIP) 1 mg tablet prn - spironolactone (ALDACTONE) 100 mg tablet - traZODone (DESYREL) 100 mg tablet Take by mouth. - traMADol (ULTRAM) 50 mg tablet Take 50 mg by mouth every 6 hours as needed for pain. Problem List As Of Date 10/25/2021 Noted Resolved SPRAIN LUMBOSACRAL [S33.9XXA] 08/02/2007 Prescriptions ordered this encounter Disp Refills Start End BENZONATATE 100 MG CAPSULE 60 c* 0 10/25/2021 Route: ORAL Sig: Take 1 capsule by mouth three times daily as needed for cough. Encounter Status:Closed by JAMEY FARIAS on 10/25/[address] [facility] Carol 09-23-2021 CNOV Office Visit (KARINA) KAIA BARRERA ([id number]) 1995 F Date Time Provider Department 09/23/21 11:40 AM MARISSA BLACKWOOD During your visit today, we recorded the following information about you: Temperature Pulse Blood pressure Weight 98.3 degrees 85/minute 114/62 67.1 kg Height 1.651 m Marissa Blackwood APRN.WORKFORCE ADVISOR 09/23/2021 6:12 PM Signed This note was created using NoteWriter. Subjective Kaiavanessa Barrera is a 26 year old female here today for migraines. I reviewed past medical, surgical, social, and family histories today and updated chart. Allergies, chronic medications, and supplements were also reviewed. Diagnosed in 2016 - cluster and migraine She is on verapamil now - dose increased a year ago, migraines are back Tried topamax twice and had too many side effects Fiorcet as needed for acute pain Saw a neurologist in the past, doesn't remember the name Had a brain scan 2013 in [place], thinks it was a CT scan Also has tried imitrex and her neck muscles constricted, also tried maxalt and same thing happened. Also tried propranolol - was taking for anxiety and it didn't help no longer Takes iron supplement OTC No OTC pain medications for the headache Located left frontal Stabbing shooting pain Occur everyday sometimes twice a day No pain for 3 sec then intense shooting pain and pulsating They have been worse in the last month ASSOCIATED SYMPTOMS: Fever: No Nausea: No Vomiting: No Photophobia: Yes Neck Stiffness: No Inability to move head freely or touch chin to neck: No Sinus congestion: No Purulent nasal discharge: No Toothache/dental problem: No Tongue or Jaw Pain: No Scalp pain with combing hair: No NEUROLOGIC SYMPTOMS: Numbness: No Weakness: No Slurred speech: No Visual changes: No Dizziness: No Clumsiness: No Difficulty with gait: No Change in level of consciousness: No Change in orientation: No Change in behavior: No History of headaches: migraine Injury/Trauma: No Caffeine Intake: Yes - couple times a week cup of coffee Alcohol Intake: Yes - social drinker maybe twice a month Gym 4 times a week Eats healthy 1/2 gallon water per day 2 good meals a day plus snacks Sleep 7-8 hours a night Gained 15 lbs in the past year [employer] Wears contacts Tried glasses but no change in headaches Last eye doc appt November PAST MEDICAL HISTORY Diagnosis Date - Chronic migraine without aura without status migrainosus, not intractable 2014 - Generalized anxiety disorder 2007 - Mild episode of recurrent major depressive disorder (HCC) 2019 - Mild intermittent asthma without complication 2006 - MRSA infection 2012 2013 - Restless legs PAST SURGICAL HISTORY Procedure Laterality Date - I AND D ABSCESS, SINGLE 09-08-13 right thigh ALLERGIES Patient has no allergy information on record. MEDICATIONS verapamil SR (CALAN SR, ISOPTIN SR) 180 mg CR tablet Take 1 tablet by mouth twice daily. NORGESTIMATE-ETHINYL ESTRADIOL 0.18/0.215/0.25 MG-35 MCG,21, TAB Norgestimate-Ethinyl Estradiol Active 1 TAB daily October 07, 2019 3:52pm PROAIR HFA 90 mcg/actuation inhaler LATUDA 80 mg tablet 40 mg. rOPINIRole (REQUIP) 1 mg tablet prn spironolactone (ALDACTONE) 100 mg tablet traZODone (DESYREL) 100 mg tablet Take by mouth. traMADol (ULTRAM) 50 mg tablet Take 50 mg by mouth every 6 hours as needed for pain. acetaminophen 325 mg-caffeine 40 mg-butalbital 50 mg (FIORICET) per capsule Take 1 capsule by mouth every 4 hours as needed. FAMILY HISTORY Problem Relation Age of Onset - Hypothyroidism Mother - Hypothyroidism Father - Insomnia Father - Dementia Maternal Grandmother - Diabetes Maternal Grandfather - Polyps Maternal Grandfather - Hypertension Paternal Grandfather Social History Tobacco Use - Smoking status: Never Smoker - Smokeless tobacco: Never Used Substance Use Topics - Alcohol use: Not Currently - Drug use: Never Review of Systems Constitutional: Positive for unexpected weight change. Negative for appetite change, chills, fatigue and fever. HENT: Negative for congestion, ear pain, rhinorrhea and sore throat. Eyes: Positive for photophobia. Negative for pain, discharge, itching and visual disturbance. Respiratory: Negative for cough, shortness of breath and wheezing. Cardiovascular: Negative for chest pain, palpitations and leg swelling. Gastrointestinal: Negative for abdominal pain, constipation, diarrhea, nausea and vomiting. Musculoskeletal: Negative for arthralgias. Skin: Negative for rash. Neurological: Positive for headaches. Negative for dizziness, tremors and weakness. Psychiatric/Behavioral : Negative for dysphoric mood and sleep disturbance. The patient is not nervous/anxious. Objective BP 114/62 (BP Site: Right Arm, BP Position: Sitting, BP Cuff (more content not included)... Normal [facility] Leidy 05-19-2021 MONSE Telephone (AGINTMLW) KAIA BARRERA ([id number]) 1995 F Date Time Provider Department 05/19/21 JAMEY FARIAS During your visit today, we recorded the following information about you: Carmel Mattson LPN 05/19/2021 3:46 PM Signed ----- Message from Jamey Farias APRN.WORKFORCE ADVISOR sent at 05/19/2021 3:38 PM EDT ----- Cmp wnl Lipids are excellent Thyroid is normal CBC unremarkable Carmel Mattson LPN 05/19/2021 3:47 PM Signed Pt notified of lab results and BWS paperwork faxed as requested. Pt to call the office early next week with fax number where she would like the same paperwork faxed to her psychiatrist. Allergies As of Date: 05/19/2021 (Not on File) Date Reviewed: 05/16/2021 Reviewed by: Jamey Farias APRN.WORKFORCE ADVISOR - Fully Assessed Reason for Visit: Results [95] Prescriptions as of 05/19/2021 Sig: NORGESTIMATE-ETHINYL ESTRADIO* Norgestimate-Ethinyl Estradio* MONTELUKAST 10 MG TABLET Take by mouth q 24 HR. PROAIR HFA 90 MCG/ACTUATION A* BENZTROPINE 0.5 MG TABLET BREO ELLIPTA 200 MCG-25 MCG/D* LATUDA 80 MG TABLET ROPINIROLE 1 MG TABLET SPIRONOLACTONE 100 MG TABLET TRAZODONE 100 MG TABLET Take by mouth. VERAPAMIL ER (SR) 180 MG TABL* TRAMADOL 50 MG TABLET Take 50 mg by mouth every 6 h* Problem List As Of Date 05/19/2021 Noted Resolved SPRAIN LUMBOSACRAL [S33.9XXA] 08/02/2007 Encounter Status:Closed by CARMEL MATTSON on 05/19/21 Normal [facility] ARIANNAN Telephone (AGINTMLW) KAIA BARRERA ([id number]) 1995 F Date Time Provider Department 05/19/21 JAMEY FARIAS AGINTMLW During your visit today, we recorded the following information about you: Carmel Mattson LPN 05/19/2021 3:41 PM Signed BWS form faxed to [phone] Allergies As of Date: 05/19/2021 (Not on File) Date Reviewed: 05/16/2021 Reviewed by: Jamey Farias APRN.WORKFORCE ADVISOR - Fully Assessed Reason for Visit: Forms [913] Prescriptions as of 05/19/2021 Sig: NORGESTIMATE-ETHINYL ESTRADIO* Norgestimate-Ethinyl Estradio* MONTELUKAST 10 MG TABLET Take by mouth q 24 HR. PROAIR HFA 90 MCG/ACTUATION A* BENZTROPINE 0.5 MG TABLET BREO ELLIPTA 200 MCG-25 MCG/D* LATUDA 80 MG TABLET ROPINIROLE 1 MG TABLET SPIRONOLACTONE 100 MG TABLET TRAZODONE 100 MG TABLET Take by mouth. VERAPAMIL ER (SR) 180 MG TABL* TRAMADOL 50 MG TABLET Take 50 mg by mouth every 6 h* Problem List As Of Date 05/19/2021 Noted Resolved SPRAIN LUMBOSACRAL [S33.9XXA] 08/02/2007 Encounter Status:Closed by CARMEL MATTSON on 05/19/[address] [facility] CNOVon 05-16-2021 CNOV Office Visit (AGINTMLW) KAIA BARRERA ([id number]) 1995 F Date Time Provider Department 05/16/21 2:40 PM JAMEY FARIAS AGINTMLW During your visit today, we recorded the following information about you: Temperature Pulse Respiration Blood pressure 97.6 degrees 96/minute 18/minute 112/72 Weight Height 66.1 kg 1.651 m Jamey Farias APRN.CNP 05/17/2021 5:11 PM Signed This note was created using NoteWriter. Subjective Kaia Barrera is a 26 year old female here today for wellness exam for work. PMH Asthma, RLS, acne, sweating, migraines. Former PCP Luis Restrepo . Reports transferring care due to location. 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 Asthma: chronic, originally dx in early teens. Reports environmental factors will cause flare ups. She is taking Singulair daily for this. And Breo ellipta. She will use proair as needed. She has not needed this since her last flare up in 02/06. States she had flare up because she stopped all her medications. Once she restarted them she has been fine. Reports prior flare up was 2+ yrs ago. Denies night wakings. Reports occasional non productive cough. Migraines: chronic stable. Reports taking verapamil dailly for this. This is usually effective. She reports she does have a rx for fiorecet to take as needed. At most 4-8x/month. Denies known triggers. She does feel it is stress related. Denies visual changes or any other aura. Acne: she is taking aldactone for management. [facility]. Depression and anxiety: Chronic stable. Reports depression started about a year ago. Reports she was on medications for this but then stopped them. Reports immediately symptoms worsened. She is currently taking latuda for depression. She is taking trazodone for sleep. Reports taking cogentin daily for sweating due to side effects of her depression medications. Reports all medications prescribed by [facility] Antonio [facility] She is not in counseling. Insomnia: she is taking trazodone 100 mg at bedtime for this. Reports this as effective. She is seeing Christen Willard at [facility] for her [facility]. Last 2019 Preventative: she exercises 60 min 3-4 days a week with weight lifting and 30 min cardio. Reports walks other days. Reports following healthy diet. Eats chicken lots of salads, protein shakes. PAST MEDICAL HISTORY Diagnosis Date - Chronic migraine without aura without status migrainosus, not intractable 2014 - Generalized anxiety disorder 2006 - Mild episode of recurrent major depressive disorder (HCC) 2019 - Mild intermittent asthma without complication 2006 - MRSA infection 2012 2013 - Restless legs Current Outpatient Medications on File Prior to Visit Medication Sig - NORGESTIMATE-ETHINYL ESTRADIOL 0.18/0.215/0.25 MG-35 MCG,21, TAB Norgestimate-Ethinyl Estradiol Active 1 TAB daily 84 October 07, 2019 3:52pm - montelukast (SINGULAIR) 10 mg tablet Take by mouth q 24 HR. - PROAIR HFA 90 mcg/actuation inhaler - benztropine (COGENTIN) 0.5 mg tablet - BREO ELLIPTA 200-25 mcg/dose inhaler - LATUDA 80 mg tablet - rOPINIRole (REQUIP) 1 mg tablet - spironolactone (ALDACTONE) 100 mg tablet - traZODone (DESYREL) 100 mg tablet Take by mouth. - verapamil SR (CALAN SR, ISOPTIN SR) 180 mg CR tablet - traMADol (ULTRAM) 50 mg tablet Take 50 mg by mouth every 6 hours as needed for pain. - adapalene-benzoyl peroxide 0.1-2.5 % glwp Adapalene/Benzoyl Peroxide Active 1 APPLIC DAILY October 07, 2019 3:45pm No current facility-administered medications on file prior to visit. Review of Systems Constitutional: Positive for unexpected weight change. Negative for activity change, appetite change, chills, diaphoresis, fatigue and fever. Wt gain gradual over the past year about 10 lbs HENT: Negative for postnasal drip, sinus pressure, sinus pain, sore throat, tinnitus and trouble swallowing. Eyes: Negative for photophobia, pain, discharge, redness, itching and visual disturbance. Respiratory: Positive for wheezing. Negative for cough, chest tightness and shortness of breath. Last episode asthma 01/18/21reports prior attack was 2+ yrs ago. She stopped all medications. Wheezing only with asthma attack or sometimes during exercise. Cardiovascular: Negative for chest pain, palpitations and leg swelling. Gastrointestinal: Negative for abdominal pain, blood in stool, constipation, diarrhea, nausea and vomiting. Reports hx IBS, takes probiotic daily. Constipation alternating with diarrhea. Endocrine: Positive for cold intolerance. Negative for heat intolerance, polydipsia, polyphagia and polyuria. Reports this is not new Genitourinary: Negative for difficulty urinating, dysuria, flank pain, frequency, pelvic pain, vaginal bleeding and vaginal disch (more content not included)... Normal [facility] GLUCOSE,FASTINGon 05-29-2020 Glucose [Mass/Vol] 77 mg/dL Normal 74 - 99 [facility] Comment on above: Result Comment: INCR EASED RISK FOR DIABETES 100-125 mg/dL DIAGNOSTIC OF DIABETES >=126 mg/dL Diagnosis of diabetes mellitus requires confirmation of an abnormal result by repeat testing. [employer], Diabetes Care; 33(Supp 1), Nov 2009. Performed By: #### G LUCF #### [facility] [id number] [place] [address] HEMOGLOBIN A1Con 05-29-2020 HbA1c (Bld) [Mass fraction] 4.7 % Normal [facility] Comment on above: Result Comment: Diag nosis of Diabetes-Adults Non-Diabetic: < or = 5.6% Increased risk for developing diabetes: 5.7-6.4% Diagnostic of diabetes: > or = 6.5% . Monitoring of Diabetes Age (y) Therapeutic Goal (%) Adults: >18 <7.0 Pediatrics: 13-18 <7.5 7-12 <8.0 0- 6 7.5-8.5 [employer]. Diabetes Care 33(S1), Nov 2009. Performed By: #### H BA1E #### [facility] [address] [place] [address] HbA1c (Bld) [Mass fraction] 88 MG/DL Normal [facility] Comment on above: Performed By: #### H BA1E #### [facility] [address] [place] [address] LIPID PANEL (CORONARY RISK 2 )on 05-29-2020 Cholesterol [Mass/Vol] 219 mg/dL High 0 - 199 [facility] Comment on above: Result Comment: . AGE DESIRABLE BORDERLINE HIGH HIGH 0-19 Y 0 - 169 170 - 199 >/= 200 20-24 Y 0 - 189 190 - 224 >/= 225 >24 Y 0 - 199 200 - 239 >/= 240 All ranges are based on fasting samples. Specific therapeutic targets will vary based on patient-specific cardiac risk. . Pediatric guidelines reference:Pediatrics 2011, 128(S5). Adult guidelines reference: NCEP ATPIII Guidelines, ROSEMARIE 2001, 258:2486-97 . Venipuncture immediately after or during the administration of Metamizole may lead to falsely low results. Testing should be performed immediately prior to Metamizole dosing. Performed By: #### L IPID #### [facility] [address] [place] [address] Cholesterol in HDL [Mass/Vol] 93.4 mg/dL Normal [facility] Comment on above: Result Comment: . AGE VERY LOW LOW NORMAL HIGH 0-19 Y < 35 < 40 40-45 ---- 20-24 Y ---- < 40 >45 ---- >24 Y ---- < 40 40-60 >60 . Performed By: #### L IPID #### [facility] [address] [place] [address] Cholesterol in LDL [Mass/Vol] 112 mg/dL High 0 - 99 [facility] Comment on above: Result Comment: . NEAR BORD AGE DESIRABLE OPTIMAL HIGH HIGH VERY HIGH 0-19 Y 0 - 109 --- 110-129 >/= 130 ---- 20-24 Y 0 - 119 --- 120-159 >/= 160 ---- >24 Y 0 - 99 100-129 130-159 160-189 >/=190 . Performed By: #### L IPID #### [facility] [address] [place] [address] Cholesterol in VLDL [Mass/Vol] 14 mg/dL Normal 0 - 40 [facility] Comment on above: Performed By: #### L IPID #### [facility] [address] [place] [address] Cholesterol.total/Ch olesterol in HDL [Mass ratio] 2.3 {ratio} Normal [facility] Comment on above: Result Comment: REF VALUES DESIRABLE < 3.4 HIGH RISK > 5.0 Performed By: #### L IPID #### [facility] [address] [place] [address] Triglyceride [Mass/Vol] 70 mg/dL Normal 0 - 149 [facility] Comment on above: Result Comment: . AGE DESIRABLE BORDERLINE HIGH HIGH VERY HIGH 0 D-90 D 19 - 174 ---- ---- ---- 91 D- 9 Y 0 - 74 75 - 99 >/= 100 ---- 10-19 Y 0 - 89 90 - 129 >/= 130 ---- 20-24 Y 0 - 114 115 - 149 >/= 150 ---- >24 Y 0 - 149 150 - 199 200- 499 >/= 500 . Venipuncture immediately after or during the administration of Metamizole may lead to falsely low results. Testing should be performed immediately prior to Metamizole dosing. Performed By: #### L IPID #### [facility] [address] [place] [address] Primary Care Visit (Text/For ms)on 05-07-2020 Primary Care Visit (Text/Forms) Diagnoses/Problems Health Maintenance/Risks Encounter for preventive health examination (V70.0) (Z00.00) Assessed Fatigue (780.79) (R53.83) Migraines (346.90) (G43.909) Irritable bowel syndrome (564.1) (K58.9) Screening for lipid disorders (V77.91) (Z13.220) Screening for diabetes mellitus (V77.1) (Z13.1) Orders Health Maintenance Renew: Verapamil HCl ER 120 MG Oral Tablet Extended Release; TAKE 1 TABLET BY MOUTH EVERY DAY Migraines Start: Ojiyrostdv-HTHM-Clqzlt ne 50-325-40 MG Oral Capsule; TAKE 1 CAPSULE EVERY 4 HOURS NEEDED Screening for diabetes mellitus Glucose, Fasting; Specimen Source:Blood (BLD); Status:Hold For - Exact Date; Requested for:Before 18Jun2020; Hemoglobin A1C; Specimen Source:Blood (BLD); Status:Hold For - Exact Date; Requested for:Before 18Jun2020; Screening for lipid disorders Lipid Panel; Specimen Source:Blood (BLD); Status:Hold For - Exact Date; Requested for:Before 18Jun2020; Patient Discussion/Summary Follow-up as needed, get blood testing done when you can and do fasting. Provider Impressions Provider Impressions Free Text Note Form: seen today for insurance wellness examination, she needs blood testing done, physical examination blood pressure today are normal. Patient has regular follow-up with gastroenterology, psychiatry and gynecology. No other changes medications she had her medicines for her migraine headaches renewed today. Chief Complaint Chief Complaints Visit For: Other WELLNESS EXAM, WANTS TO TALK ABOUT ATIVAN AND TRAMADOL History of Present Illness Here for insurance [facility]/eval on meds for bipolar and anxiety, follows with psychiatry on OCP, sees [facility] [employer] [employer] uses Verapamil with help fro migraines, uses rare fiorocet. No headache, chest pain, shortness of breath, dizziness, lightheadedness, or edema rare albuterol use, rare albuterol nebulizer vapes (trying to quit) 2 ETOH a week follows with GI for IBS Review of Systems Constitutional: NAD, no fevers, chills, sweats or fatigue Rep: no cough or shortness of breath Cardio: no chest pain, edema, or palpitations GI: no nausea, vomiting, diarrhea, constipation, or heartburn : normal urine flow and stream, no nocturia or dysuria MS: no joint pain or significant limits of function Skin: no visible rashes or suspicious lesions Neuro: alert and oriented X4, no numbness, tingling or issues with balance Psych: no anxiety or depression Active Problems Problems Cervical strain (847.0) (S16.1XXA) Fatigue (780.79) (R53.83) Neck pain (723.1) (M54.2) Strain of thoracic spine (847.1) (S29.012A) Surgical History Problems No history of surgery Family History Mother Family history of cerebrovascular accident (CVA) (V17.1) (Z82.3) Social History Problems Consumes alcohol occasionally (V49.89) (Z78.9) Does not have living will Denied: History of Never a smoker Smokeless tobacco use (305.1) (Z72.0) Current Meds Medication NameInstruction busPIRone HCl - 15 MG Oral TabletTAKE 1 TABLET 4 TIMES DAILY clonazePAM 1 MG Oral TabletTAKE TABLET PRN Dicyclomine HCl - 10 MG Oral CapsuleTAKE 1 CAPSULE BY MOUTH THREE TIMES A DAY Gabapentin 600 MG Oral TabletTAKE 1 TABLET 3 TIMES DAILY. Latuda 40 MG Oral TabletTAKE 1 TABLET Bedtime Norgestimate-Eth Estradiol 0.25-35 MG-MCG Oral Tablet QUEtiapine Fumarate 200 MG Oral TabletTAKE ONE HALF TABLET FOR SLEEP NEEDED Spironolactone 100 MG Oral TabletTAKE 1 TABLET DAILY. traMADol HCl - 50 MG Oral Tablet Verapamil HCl ER 120 MG Oral Tablet Extended ReleaseTAKE 1 TABLET BY MOUTH EVERY DAY Allergies Medication Augmentin Bactrim Keflex Zithromax Penicillins Vitals Vital Signs Recorded: 07May2020 04:17PM Temperature: 98.6 F Heart Rate: 64 Systolic: 116, RUE Diastolic: 70, RUE Height: 5 ft 4.5 in Weight: 131 lb 3 oz BMI Calculated: 22.17 BSA Calculated: 1.64 Tobacco Use: a) Yes O2 Saturation: 99 Physical Exam Gen: Alert and oriented, no acute distress HEENT: normal TMs/external ear, conjunctiva normal, PERRLA/EOMI, neck supple, no lymphadenopathy or thyromegaly Resp: clear to auscultation, no audible wheezes, rales, or rhonchi, normal chest movement Cardio: regular rate and rhythm, no murmur, clicks or gallops heard, normal peripheral pulses, no edema Abdomen: normal bowel sounds, soft, non tender, non distended, no organomegaly Skin: no visible rashes or abnormal skin lesions, warm and dry Neruo: Alert and oriented, normal gross movement of extremities Psych: cooperative and appropriate Signatures Electronically signed by : Luis Restrepo MD; May 07 2020 5:01PM EST (Author) Electronically signed by : Luis Restrepo MD; May 07 2020 5:02PM EST (Author) Normal [facility] Auto Diffon 04-11-2019 Basophils #/vol (Bld) 0.0 E3/mcL Normal 0.0-0.2 [facility] Comment on above: Order Comment: Order Added by Discern Expert. Performed By: #### 2 [id number] #### AILEEN Caceres [address] [place] [address] Basophils/100 WBC (Bld) 0.5 % Normal 0.0-2.0 [facility] Comment on above: Order Comment: Order Added by Discern Expert. Performed By: #### 2 [id number] #### AILEEN RemHemo [address] [place] [address] Eos Absolute 0.1 E3/mcL Normal 0.0-0.7 [facility] Comment on above: Order Comment: Order Added by Discern Expert. Performed By: #### 2 [id number] #### AILEEN RemHemo [address] [place] [address] Eosinophils/100 WBC (Bld) 1.6 % Normal 0.0-11.0 [facility] Comment on above: Order Comment: Order Added by Discern Expert. Performed By: #### 2 [id number] #### AILEEN RemHemo [address] [place] [address] Lymphocytes #/vol (Bld) 1.9 E3/mcL Normal 1.2-3.4 [facility] Comment on above: Order Comment: Order Added by Discern Expert. Performed By: #### 2 [id number] #### AILEEN RemHemo [address] [place] [address] Lymphocytes/100 WBC (Bld) 29.4 % Normal 20.0-55.0 [facility] Comment on above: Order Comment: Order Added by Discern Expert. Performed By: #### 2 [id number] #### AILEEN RemHemo [address] [place] [address] [place] Absolute 0.4 E3/mcL Normal 0.0-0.7 [facility] Comment on above: Order Comment: Order Added by Discern Expert. Performed By: #### 2 [id number] #### AILEEN RemHemo [address] [place] [address] Monocytes/100 WBC (Bld) 6.9 % Normal 0.0-10.0 [facility] Comment on above: Order Comment: Order Added by Discern Expert. Performed By: #### 2 [id number] #### AILEEN RemHemo [address] [place] [address] Neutro Absolute 4.0 E3/mcL Normal 1.4-6.5 [facility] Comment on above: Order Comment: Order Added by Discern Expert. Performed By: #### 2 [id number] #### AILEEN RemHemo [address] [place] [address] Neutro Auto 61.6 % Normal 37.0-75.0 [facility] Comment on above: Order Comment: Order Added by Discern Expert. Performed By: #### 2 [id number] #### AILEEN Alvaradoo [facility] [place] [id number] CBC w/ Auto Diffon 9 Erythrocyte distribution width Ratio (RBC) 13.0 % Normal 11.5-14.5 [facility] Comment on above: Performed By: #### 2 [id number] #### AILEEN Alvaradoo [address] [place], [place] [id number] Hematocrit Volume Fraction (Bld) 40.3 % Normal 36.0-48.0 [facility] Comment on above: Performed By: #### 2 [id number] #### AILEEN Alvaradoo [address] [place] [address] Hemoglobin mass conc (Bld) 13.7 g/dL Normal 12.0-16.0 [facility] Comment on above: Performed By: #### 2 [id number] #### AILEEN NayakHemo [address] [place] [address] MCH Entitic mass (RBC) 34.0 pg High 27.0-31.0 [facility] Comment on above: Performed By: #### 2 [id number] #### AILEEN Alvaradoo [address] [place] [address] MCHC mass conc (RBC) 34.0 g/dL Normal 33.0-37.0 [facility] Comment on above: Performed By: #### 2 [id number] #### AILEEN NayakHemo [address] [place], [place] [id number] MCV Entitic volume (RBC) 100.0 fL Normal 78.0-100.0 [facility] Comment on above: Performed By: #### 2 [id number] #### AILEEN NayakHemo [facility] [place] [id number] Platelet mean volume Entitic volume (Bld) 8.9 fL Normal 7.4-11.0 [facility] Comment on above: Performed By: #### 2 [id number] #### AILEEN NayakHemo [facility] [place] [id number] Platelets #/vol (Bld) 290 E3/mcL Normal 130-400 [facility] Comment on above: Performed By: #### 2 [id number] #### AILEEN RemHemo [address] [place] [address] RBC #/vol (Bld) 4.03 E6/mcL Normal 3.90-5.40 [facility] Comment on above: Performed By: #### 2 [id number] #### AILEEN RemHemo [address] [place] [address] WBC #/vol (Bld) 6.4 E3/mcL Normal 3.6-11.0 [facility] Comment on above: Performed By: #### 2 [id number] #### AILEEN RemHemo [address] [place] [address] CMPon 04-11-2019 Albumin mass conc 4.3 g/dL Normal 3.4-5.0 [facility] Comment on above: Order Comment: Nonfa sting specimen Performed By: #### 2 538903 #### AILEEN [facility] [address] [place] [address] Albumin/Globulin mass ratio 1.6 {ratio} Normal 1.1-1.9 [facility] Comment on above: Order Comment: Nonfa sting specimen Performed By: #### 2 [id number] #### AILEEN [facility] [address] [place] [address] Alk Phos 41 Int._Unit/L Normal 33-110 [facility] Comment on above: Order Comment: Nonfa sting specimen Performed By: #### 2 [id number] #### AILEEN [facility] [address] [place] [address] ALT enzyme act/vol 11 Int._Unit/L Normal 7-45 [facility] Comment on above: Order Comment: Nonfa sting specimen Performed By: #### 2 [id number] #### AILEEN [facility] [address] [place] [address] Anion gap molar conc 12 mmol/L Normal 10-20 [facility] Comment on above: Order Comment: Nonfa sting specimen Performed By: #### 2 [id number] #### AILEEN [facility] [address] [place] [address] AST enzyme act/vol 14 Int._Unit/L Normal 9-39 [facility] Comment on above: Order Comment: Nonfa sting specimen Performed By: #### 2 [id number] #### AILEEN [facility] [address] [place] [address] Bili Total 0.36 mg/dL Normal 0.00-1.20 [facility] Comment on above: Order Comment: Nonfa sting specimen Performed By: #### 2 [id number] #### AILEEN [facility] [address] [place] [address] Calcium mass conc 9.4 mg/dL Normal 8.6-10.3 [facility] Comment on above: Order Comment: Nonfa sting specimen Performed By: #### 2 [id number] #### AILEEN [facility] [address] [place] [address] Chloride molar conc 104 mmol/L Normal 98-107 [facility] Comment on above: Order Comment: Nonfa sting specimen Performed By: #### 2 [id number] #### AILEEN [facility] [address] [place] [address] CO2 molar conc 24.0 mmol/L Normal 21.0-32.0 [facility] Comment on above: Order Comment: Nonfa sting specimen Performed By: #### 2 [id number] #### AILEEN [facility] [address] [place] [address] Creatinine mass conc 0.6 mg/dL Normal 0.5-1.1 [facility] Comment on above: Order Comment: Nonfa sting specimen Performed By: #### 2 [id number] #### AILEEN [facility] [address] [place] [address] Globulin mass conc (S) 3.0 g/dL Normal 2.0-4.0 [facility] Comment on above: Order Comment: Nonfa sting specimen Performed By: #### 2 674270 #### AILEEN [facility] [address] [place] [address] Glucose mass conc 79 mg/dL Normal 70-99 [facility] Comment on above: Order Comment: Nonfa sting specimen Performed By: #### 2 480373 #### AILEEN [facility] [address] [place] [address] Potassium molar conc 4.0 mmol/L Normal 3.5-5.3 [facility] Comment on above: Order Comment: Nonfa sting specimen Performed By: #### 2 [id number] #### AILEEN [facility] [address] [place] [address] Protein mass conc 7.0 g/dL Normal 6.4-8.2 [facility] Comment on above: Order Comment: Nonfa sting specimen Performed By: #### 2 480682 #### AILEEN [facility] [address] [place] [address] Sodium molar conc 136 mmol/L Normal 136-145 [facility] Comment on above: Order Comment: Nonfa sting specimen Performed By: #### 2 688229 #### AILEEN [facility] [address] [place] [address] Urea nitrogen mass conc 12 mg/dL Normal 6-23 [facility] Comment on above: Order Comment: Nonfa sting specimen Performed By: #### 2 [id number] #### AILEEN [facility] [place] [id number] Urea nitrogen/Creatinine mass ratio 20.0 ratio Normal 5.4-30.0 [facility] Comment on above: Order Comment: Nonfa sting specimen Performed By: #### 2 [id number] #### AILEEN [facility] [address] [place] [address] TSHon 04-11-2019 Thyrotropin Qn 1.44 mcIU/mL Normal 0.30-5.60 [facility] Comment on above: Performed By: #### 2 [id number] #### AILEEN [employer] [address] [place], [place] [address] eGFRon 04-11-2019 GFR/1.73 sq M predicted among non-blacks MDRD vol rate/area (S/P/Bld) mL/min/{1.73_m2} Normal [facility] Comment on above: Order Comment: Order added by Discern Expert. Performed By: #### 1 [id number] #### AILEEN [facility] [address] [place] [address] Culture, Genital Comprehensi veon 08-26-2018 Bacteria identified Aer cx Nom (Genital specimen) See Note Normal [facility] Work Phone: Comment on above: Reason for Exam: vag inal irritation Gram StainScore = 0 Interpretation: 0-3 Normal, 4-6 Intermediate, 7-10 Positive BV Gram Stain Rare Yeast Like Organisms 4+ Gram positive rods 1+ White Blood Cells 1+ Epithelial cells No Gram negative diplococci Gent Cult Comp No Gardnerella, Neisseria or beta-hemolytic Streptococcus isolated. TESTING PERFORMED AT [facility]. ORIGINAL REPORT ON FILE IN LAB CONTAINS ADDITIONAL TEST SITE INFORMATION. KATERIN ALBICANS Fluconazole DEBORAH 0.25ug/ml susceptible Amphoteracin B DEBORAH 0.5ug/ml susceptible There are no CLSI standards for interpretation of this Drug/Organism combination. For research use only. ORGANISM 1: Katerin albicansAmount Growth Very Rare PAP I-G w/rfx hrHPV-Aptimaon 08-26-2018 PAP I-G w/rfx hrHPV-Aptima Comment Normal [facility] Work Phone: Comment on above: This liquid based Th inPrep(R) pap test was screened withthe use of an image guided system. Alicia Greene, Cyto technologist (ASCP) Satisfactory for joby luation. Endocervical and/or squamous metaplasticcells (endocervical component) are present. The Pap smear is a s creening test designed to aid in thedetection of premalignant and malignant conditions of theuterine cervix. It is not a diagnostic procedure andshould not be used as the sole means of detecting cervicalcancer. Both false-positive and false-negative reports dooccur. NEGATIVE FOR INTRAEP ITHELIAL LESION AND MALIGNANCY. The HPV DNA reflex c joaquín were not met with this specimenresult therefore, no HPV testing was performed.Performed at: [address] [place] [id number] Director: Eden Link MD, Phone: [phone] PAP I-G w/rfx hrHPV-Aptima . Normal [facility] Work Phone: [place] Screenon 05-13-2018 [place] Scr Negative Normal Neg [facility] Comment on above: Performed By: #### 2 [id number] #### AILEEN Chemistry Manual Subsection [address] [place] [address] C Throaton 05-10-2018 C Throat Final Report: Modera te Normal throat keyur isolated Normal [facility] Comment on above: Performed By: #### 2 [id number] #### AILEEN Microbiology Subsection [address] [place] [id number] CBC W/Diff, Automatedon 02-17 Basophils/100 WBC Auto (Bld) 0.4 % Normal 0-1 [facility] Work Phone: Eosinophils/100 WBC Auto (Bld) 1.1 % Normal 0-5 [facility] Work Phone: Erythrocyte distribution width Auto Ratio (RBC) 12.4 % Normal 11.6-14.6 [facility] Work Phone: Hematocrit Auto Volume Fraction (Bld) 41.1 % Normal 37-47 [facility] Work Phone: Hemoglobin mass conc (Bld) 14.0 g/dL Normal 12.0-15.0 [facility] Work Phone: Lymphocytes/100 WBC Auto (Bld) 27.7 % Normal 19-41 [facility] Work Phone: MCH Auto Entitic mass (RBC) 33.9 pg Abnormal 27.0-32.0 [facility] Work Phone: MCHC Auto mass conc (RBC) 34.1 {g/gl} Normal 32-36 [facility] Work Phone: MCV Auto Entitic volume (RBC) 99.5 fL Abnormal 81-99 [facility] Work Phone: Monocytes/100 WBC Auto (Bld) 8.3 % Normal 0-10 [facility] Work Phone: Neutrophils/100 WBC Auto (Bld) 62.4 % Normal 47-70 [facility] Work Phone: Platelet mean volume Auto Entitic volume (Bld) 10.1 fL Normal 6.2-12.0 [facility] Work Phone: Platelets Auto #/vol (Bld) 299 10*3/uL Normal 150-450 [facility] Work Phone: RBC Auto #/vol (Bld) 4.13 {M/mm3} Abnormal 4.2-5.4 [facility] Work Phone: WBC Auto #/vol (Bld) 7.6 10*3/uL Normal 4.4-11.0 [facility] Work Phone: CBC W/Diff, Automated 0.100 % Normal 0.0-0.9 [facility] Work Phone: Comment on above: IG% - Immature Granu locytes (promyelocytes, myelocytes andmetamyelocytes) > 1% indicates that a LEFT SHIFT is Present. CBC W/Diff, Automated 2.09 {X10_3/ul} Normal 0.83-4.51 [facility] Work Phone: CBC W/Diff, Automated 44.2 fL Abnormal 35.1-43.9 [facility] Work Phone: CBC W/Diff, Automated 4.7 {X10_3/uL} Normal 2.0-7.7 [facility] Work Phone: Immunoglobulin Surjit 201 8 IgE Qn 16 {IU/mL} Normal 0-100 [facility] Work Phone: Comment on above: Performed at: [address] [id number] Director: Sahil Wright MD, Phone: [phone] HPV automatic (54240)on 04-19 HPV 16+18+31+33+35+39+45 +51+52+56+58+59+68 DNA Probe+sig amp Ql (Cvx) Positive Abnormal [facility] Work Phone: Comment on above: This high-risk HPV t est detects thirteen high-risk types(16/18/31/33/35/39/45/51/52/56/58/59/68) without differentiation. . No. of containers..0 1 CYTYC Thin Prep VialPERFORMED BY: Design2Launch120 [address] zappitpeterSaltStackrTopTenREVIEWSpenn medicine [facility] [place] [id number] BY: =G [facility] Yhbjyasudv493 [address] Panchorlespenn medicine [facility] [place] [id number] Information: [id number] Microscopic observation Other stain Nom (Unsp spec) . Normal [facility] Work Phone: Comment on above: No. of containers..0 1 CYTYC Thin Prep VialPERFORMED BY: Design2Launch120 [place] Risk SolutionsKarliepenn medicine [facility] [place] [id number] BY: =G [employer] Zuleikapenn medicine princ[facility] [place] [id number] Information: [id number] Pathology report final diagnosis Narrative [facility] Normal [facility] Work Phone: Comment on above: NEGATIVE FOR INTRAEP ITHELIAL LESION AND MALIGNANCY.Satisfactory for evaluation. Endocervical and/or squamous metaplasticcells (endocervical component) are present.Z01.419Z11.51Meka Aguero Cuff Turner Machine Operator No. of containers..0 1 CYTYC Thin Prep VialPERFORMED BY: Design2Launch120 [address] PanchorTopTenREVIEWSpenn medicine [facility] [place] [id number] BY: =G [facility] Djajepacoe443 [facility] CenterVickrthe [facility] [place] [id number] Information: [id number] HPV automatic (18238) PAPSMR Normal [facility] Work Phone: Comment on above: The Pap smear is a s creening test designed to aid in the detection ofpremalignant and malignant conditions of the uterine cervix. It is not adiagnostic procedure and should not be used as the sole means of detectingcervical cancer. Both false-positive and false-negative reports do occur. .This liquid based ThinPrep(R) pap test was screened with theuse of an image guided system. No. of containers..0 1 CYTYC Thin Prep VialPERFORMED BY: YUPPTV120 [facility] [id number] BY: =G [facility]umperCass [facility] Center Gmdqgphmsy80424 [address] StreetjoseTemple University Hospital [id number] Information: [id number] HPV automatic (56955)on 04-19 HPV 16+18+31+33+35+39+45 +51+52+56+58+59+68 DNA Probe+sig amp Ql (Cvx) Positive Abnormal [facility] Work Phone: Comment on above: This high-risk HPV t est detects thirteen high-risk types(16/18/31/33/35/39/45/51/52/56/58/59/68) without differentiation. . Source.............C ervical;EndocervicalNo. of containers..01 CYTYC Thin Prep VialPATIENT NOT FASTINGPERFORMED BY: Credit Coach[address] [id number] BY: =G Credit Coach[address] [id number] Information: [id number] Microscopic observation Other stain Nom (Unsp spec) . Normal [facility] Work Phone: Comment on above: Source.............C ervical;EndocervicalNo. of containers..01 CYTYC Thin Prep VialPATIENT NOT FASTINGPERFORMED BY: LOAG Bajdmvnxxf[address] [id number] BY: =G LOAG Rjsgwwkbnl20[address] [id number] Information: [id number] Pathology report final diagnosis Narrative [facility] Normal [facility] Work Phone: Comment on above: NEGATIVE FOR INTRAEP ITHELIAL LESION AND MALIGNANCY.Satisfactory for evaluation. Endocervical and/or squamous metaplasticcells (endocervical component) are present.Z11.51Evette Green Cuff Turner Machine Operator Source.............C ervical;EndocervicalNo. of containers..01 CYTYC Thin Prep VialPATIENT NOT FASTINGPERFORMED BY: [facility] Gtlmkzcetj943 [address] PlazaCharleston [place] [id number] BY: =G [facility] Mutvzixzdd117 [address] PlazaCharl[place] [id number] Information: [id number] HPV automatic (62990) PAPSMR Normal [facility] Work Phone: Comment on above: The Pap smear is a s creening test designed to aid in the detection ofpremalignant and malignant conditions of the uterine cervix. It is not adiagnostic procedure and should not be used as the sole means of detectingcervical cancer. Both false-positive and false-negative reports do occur. .This liquid based ThinPrep(R) pap test was screened with theuse of an image guided system. Source.............C ervical;EndocervicalNo. of containers..01 CYTYC Thin Prep VialPATIENT NOT FASTINGPERFORMED BY: [facility] Wovbylqugu627 [address] PlazaCharl[place] [id number] BY: =G [facility] Ffxuckkkgw177 [address] PlazaCharl[place] [id number] Information: [id number] Rapid Strep Test, Office (21 863)Ordered By: Radhika Baker on 11-03-2015 S. pyogenes Ag IA Ql (Unsp spec) Negative Normal [facility] Work Phone: CBC (AUTO) (31578)on 015 Erythrocyte distribution width Auto Ratio (RBC) 12.4 % Normal 12.3-15.4 [facility] Work Phone: Hematocrit Auto Volume Fraction (Bld) 37.9 % Normal 34.0-46.6 [facility] Work Phone: Hemoglobin mass conc (Bld) 12.5 g/dL Normal 11.1-15.9 [facility] Work Phone: Comment on above: PATIENT NOT FASTINGP ERFORMED BY: Guzu Hygfyp4916 [facility] [id number] MCH Auto Entitic mass (RBC) 33.1 pg Abnormal 26.6-33.0 [facility] Work Phone: MCHC Auto mass conc (RBC) 33.0 g/dL Normal 31.5-35.7 [facility] Work Phone: MCV Auto Entitic volume (RBC) 100 fL Abnormal 79-97 [facility] Work Phone: Platelets Auto #/vol (Bld) 297 {x10E3/uL} Normal 150-379 [facility] Work Phone: RBC Auto #/vol (Bld) 3.78 {x10E6/uL} Normal 3.77-5.28 [facility] Work Phone: WBC Auto #/vol (Bld) 4.8 {x10E3/uL} Normal 3.4-10.8 [facility] Work Phone: CBC (AUTO) (53553)Ordered By : Business Support on 09-23-2015 Erythrocyte distribution width Ratio (RBC) 12.4 % Normal 12.3-15.4 [facility] Work Phone: Comment on above: PATIENT NOT FASTINGP ERFORMED BY: LOAGAcuteCare Health SystemOwaevk0407 [facility] [id number] Hematocrit Volume Fraction (Bld) 37.9 % Normal 34.0-46.6 [facility] Work Phone: Comment on above: PATIENT NOT FASTINGP ERFORMED BY: GuzuAcuteCare Health SystemTuxkbx8499 [facility] [id number] MCH Entitic mass (RBC) 33.1 pg Abnormal 26.6-33.0 [facility] Work Phone: Comment on above: PATIENT NOT FASTINGP ERFORMED BY: [place] [facility] Pzclas7204 Allan RoadDublin [place] [id number] MCHC mass conc (RBC) 33.0 g/dL Normal 31.5-35.7 Comp [facility] centerensive Internal [facility] Work Phone: Comment on above: PATIENT NOT FASTINGP ERFORMED BY: CB [facility] Uaflql2119 Allan RoadDublin [place] [id number] MCV Entitic volume (RBC) 100 fL Abnormal 79-97 [facility] Work Phone: Comment on above: PATIENT NOT FASTINGP ERFORMED BY: [place] [facility] Rxvrzq2800 [address] RoadDublin [place] [id number] Platelets #/vol (Bld) 297 {x10E3/uL} Normal 150-379 [facility] Work Phone: Comment on above: PATIENT NOT FASTINGP ERFORMED BY: [place] [facility] Bbtluu0474 [address] RoadDublin [place] [id number] RBC #/vol (Bld) 3.78 {x10E6/uL} Normal 3.77-5.28 [facility] centerensive [facility] Work Phone: Comment on above: PATIENT NOT FASTINGP ERFORMED BY: CB [facility] Vrscxe5368 Allan RoadDublin [place] [id number] WBC #/vol (Bld) 4.8 {x10E3/uL} Normal 3.4-10.8 Compr ensive Internal Medicine Work Phone: Comment on above: PATIENT NOT FASTINGP ERFORMED BY: CB [facility] Uttrah6006 Allan RoadDublin [place] [id number] METABOLIC PANEL, COMPREHENSI VE (57883)on 09-23-2015 Albumin mass conc 4.2 g/dL Normal 3.5-5.5 Compreh [facility] Internal Medicine Work Phone: Comment on above: PATIENT NOT FASTINGP ERFORMED BY: CB [facility] Dkhuod8060 Allan RoadDublin [place] [id number] Information: G60784, 226042 Albumin/Globulin mass ratio 1.6 {ratio} Normal 1.1-2.5 [facility] Work Phone: Comment on above: PATIENT NOT FASTINGP ERFORMED BY: [place] LabCogabby MendozaSlvkig5396 [facility] [id number] Information: C27156, 069613 ALP enzyme act/vol 56 [iU]/L Normal 39-117 [facility] Internal [facility] Work Phone: Comment on above: PATIENT NOT FASTINGP ERFORMED BY: [place] Lab[facility] Mvarta0211 [facility] [id number] Information: Y73488, 100694 ALT enzyme act/vol 8 [iU]/L Normal 0-32 [facility] Work Phone: Comment on above: PATIENT NOT FASTINGP ERFORMED BY: [place] JoshiCo Qpozhr5296 [facility] [id number] Information: T50138, 699416 AST enzyme act/vol 11 [iU]/L Normal 0-40 [facility] Work Phone: Comment on above: PATIENT NOT FASTINGP ERFORMED BY: [place] [facility] Suztqr0918 [facility] [id number] Information: D54104, 957463 Bilirubin mass conc 0.4 mg/dL Normal 0.0-1.2 [facility] Internal Medicine Work Phone: Comment on above: PATIENT NOT FASTINGP ERFORMED BY: LabCo Ffqqzj0508 [facility] [id number] Information: G84294, 673912 Calcium mass conc 9.5 mg/dL Normal 8.7-10.2 [facility] Internal Medicine Work Phone: Comment on above: PATIENT NOT FASTINGP ERFORMED BY: [place] [facility] Kfnsar3895 [facility] [id number] Information: U29443, 625151 Chloride molar conc 101 mmol/L Normal 97-108 Compr [facility] Internal Medicine Work Phone: Comment on above: PATIENT NOT FASTINGP ERFORMED BY: Lab[facility] Gptqlg1634 [facility] [id number] Information: W23813, 219589 CO2 molar conc 20 mmol/L Normal 18-29 Comprehens karen Internal Medicine Work Phone: Comment on above: PATIENT NOT FASTINGP ERFORMED BY: [facility] Fvmcvl6976 [facility] [id number] Information: L43957, 196932 Creatinine mass conc 0.63 mg/dL Normal 0.57-1.00 Comp rehensive Internal Medicine Work Phone: Comment on above: PATIENT NOT FASTINGP ERFORMED BY: LabCoAcuteCare Health SystemJrdetp0422 [facility] [id number] Information: D65959, 803929 GFR/1.73 sq M predicted among blacks CKD-EPI vol rate/area (S/P/Bld) 148 mL/min/1.73 Normal Comprehensiv e Internal Medicine Work Phone: Comment on above: PATIENT NOT FASTINGP ERFORMED BY: LabCoAcuteCare Health SystemFjtzsd3787 [facility] [id number] Information: Z69654, 777632 GFR/1.73 sq M predicted among non-blacks CKD-EPI vol rate/area (S/P/Bld) 129 mL/min/1.73 Normal [facility] Work Phone: Comment on above: PATIENT NOT FASTINGP ERFORMED BY: Lab[facility] Ncgfyt4803 [facility] [id number] Information: T12589, 080666 Globulin Calculated mass conc (S) 2.6 g/dL Normal 1.5-4.5 [facility] Work Phone: Glucose mass conc 74 mg/dL Normal 65-99 Compreh ensive Internal Medicine Work Phone: Comment on above: PATIENT NOT FASTINGP ERFORMED BY: [facility] Rxqkto0416 [facility] [id number] Information: B86769, 236736 Potassium molar conc 4.9 mmol/L Normal 3.5-5.2 Comp rehensive Internal Medicine Work Phone: Comment on above: PATIENT NOT FASTINGP ERFORMED BY: V[place]IA Mendoza6370 [facility] [id number] Information: U40373, 239124 Protein mass conc 6.8 g/dL Normal 6.0-8.5 Compreh ensive Internal Medicine Work Phone: Comment on above: PATIENT NOT FASTINGP ERFORMED BY: [place] [facility] Epsdoa8351 [facility] [id number] Information: S89177, 330163 Sodium molar conc 139 mmol/L Normal 134-144 Compreh ensive [facility] Medicine Work Phone: Comment on above: PATIENT NOT FASTINGP ERFORMED BY: V[place]IA Alvarez Bfbdfv3996 [facility] [id number] Information: V92114, 716028 Urea nitrogen mass conc 11 mg/dL Normal 6-20 [facility] Work Phone: Comment on above: PATIENT NOT FASTINGP ERFORMED BY: [place] [facility] Ivsdxn8744 [facility] [id number] Information: Y89515, 537332 Urea nitrogen/Creatinine mass ratio 17 mg/mg Normal 8-20 [facility] Work Phone: Comment on above: PATIENT NOT FASTINGP ERFORMED BY: [place] LabMary [facility]6370 [facility] [id number] Information: A63249, 603213 METABOLIC PANEL, COMPREHENSI VE (26186)Ordered By: Business Support on 09-23-2015 Globulin mass conc (S) 2.6 g/dL Normal 1.5-4.5 [facility] Work Phone: Comment on above: PATIENT NOT FASTINGP ERFORMED BY: [place] JoshiCo Qrypgd3640 [facility] [id number] Information: P91227, 544361 TEST - SERUM QUANT ITATIVE (HCG) (20537)on 09-23-2015 HCG.beta subunit ( test) Ql Negative Normal Comprehensiv e Internal Medicine Work Phone: Comment on above: PATIENT NOT FASTINGP ERFORMED BY: [facility]6370 [facility] [id number] PROLACTIN (42485)on 09-23-20 15 Prolactin mass conc 16.0 ng/mL Normal 4.8-23.3 [facility] Internal Medicine Work Phone: Comment on above: PATIENT NOT FASTINGP ERFORMED BY: [facility]6370 [facility] [id number] PT (PROTHROMBIN TIME) (50422 )on 09-23-2015 INR Coag RelTime (PPP) 1.0 {INR} Normal 0.8-1.2 [facility] Internal Medicine Work Phone: Comment on above: Reference interval i s for non-anticoagulated patients. . Suggested INR therapeutic range for Vitamin K antagonist therapy: Standard Dose (moderate intensity therapeutic range): 2.0 - 3.0 Higher intensity therapeutic range 2.5 - 3.5 PATIENT NOT FASTINGP ERFORMED BY: [facility]6370 [facility] [id number] Prothrombin time (PT) Coag time (PPP) 10.1 {sec} Normal 9.1-12.0 [facility] Internal Medicine Work Phone: Comment on above: PATIENT NOT FASTINGP ERFORMED BY: [facility]6370 [facility] [id number] PTT (ACTIVATED PARTIAL THROM BOPLASTIN TIME) (26732)on 09-23-2015 aPTT Coag time (Bld) 32 {sec} Normal 24-33 [facility] Internal Medicine Work Phone: Comment on above: This test has not be en validated for monitoring unfractionated heparintherapy. aPTT-based therapeutic ranges for unfractionated heparintherapy have not been established. For general guidelines onHeparin monitoring, refer to the [facility] Directory of Services. PTT (ACTIVATED PARTIAL THROM BOPLASTIN TIME) (81509)Ordered By: Business Support on 09-23-2015 aPTT Coag time (PPP) 32 {sec} Normal 24-33 [facility] Work Phone: Comment on above: This test has not be en validated for monitoring unfractionated heparintherapy. aPTT-based therapeutic ranges for unfractionated heparintherapy have not been established. For general guidelines onHeparin monitoring, refer to the [facility] Directory of Services. PATIENT NOT FASTINGP ERFORMED BY: [facility]6370 [facility] [id number] TSH (63527)on 09-23-2015 Thyrotropin Qn 1.080 {uIU/mL} Normal 0.450-4.500 [facility] Internal Medicine Work Phone: Comment on above: PATIENT NOT FASTINGP ERFORMED BY: [facility]6370 [facility] [id number] Anaerobic and Aerobic Cultur surjit 03-29-2015 Bacteria identified Aer cx Nom (Unsp spec) Final report Abnormal [facility] Work Phone: Bacteria identified Anaer cx Nom (Unsp spec) Final report Normal [facility] Work Phone: Bacteria identified Cx Nom (Unsp spec) MRSA Abnormal [facility] Work Phone: Comment on above: Methicillin - resist ant Staphylococcus aureusHeavy growthBased on resistance to oxacillin this isolate would be resistant toall currently available beta-lactam antimicrobial agents, with theexception of the newer cephalosporins with anti-MRSA activity, such asCeftaroline S = Susceptible; I = Intermediate; R = Resistant P = Positive; N = Negative MICS are expressed in micrograms per mL Antibiotic RSLT#1 RSLT#2 RSLT#3 RSLT#4Ciprofloxacin RClindamycin RErythromycin RGentamicin SLevofloxacin ILinezolid SOxacillin RPenicillin RRifampin STetracycline STrimethoprim/Sulfa SVancomycin S Bacteria identified Cx Nom (Unsp spec) NANG72 Normal [facility] Work Phone: Comment on above: No anaerobic growth in 72 hours. Sputum Culture (67924)on Bacteria identified Cx Nom (Sput) Final report Normal [facility] Work Phone: Comment on above: PATIENT NOT FASTINGP ERFORMED BY: [place] [facility] Cbsfcb8042 [facility] [place] [id number] Information: SRC: SPUTUM Bacteria identified Cx Nom (Unsp spec) RRF Normal [facility] Work Phone: Comment on above: Routine respiratory keyur PATIENT NOT FASTINGP ERFORMED BY: [place] [facility] Ycmptn6460 [facility]General [facility] [id number] Information: SRC: SPUTUM AMYLASE (52246)on 06-26-2014 Amylase enzyme act/vol 35 U/L Normal 31-124 [facility] Work Phone: Comment on above: PATIENT NOT FASTINGP ERFORMED BY: [place] [facility] Iyymth3271 [facility] [id number] CBC WITH MANUAL DIFF (03071) Ordered By: Business Support on 06-26-2014 Basophils #/vol (Bld) 0.1 {x10E3/uL} Normal 0.0-0.2 [facility] Work Phone: Comment on above: PATIENT NOT FASTINGP ERFORMED BY: [facility] Horspq2345 [facility]in [place] [id number] Basophils/100 WBC (Bld) 1 % Normal 0-3 [facility] Work Phone: Comment on above: PATIENT NOT FASTINGP ERFORMED BY: [facility] Fwnhie7927 [facility] [id number] Eosinophils #/vol (Bld) 0.1 {x10E3/uL} Normal 0.0-0.4 [facility] Work Phone: Comment on above: PATIENT NOT FASTINGP ERFORMED BY: CB [facility] Lfwxei7777 [facility]in [place] [id number] Eosinophils/100 WBC (Bld) 1 % Normal 0-5 [facility] Work Phone: Comment on above: PATIENT NOT FASTINGP ERFORMED BY: CB [facility] Jfboxb0580 [facility]in [place] [id number] Erythrocyte distribution width Ratio (RBC) 12.5 % Normal 12.3-15.4 [facility] Work Phone: Comment on above: PATIENT NOT FASTINGP ERFORMED BY: [facility] Jifsaf0683 [facility]in [place] [id number] Hematocrit Volume Fraction (Bld) 37.3 % Normal 34.0-46.6 [facility] Work Phone: Comment on above: PATIENT NOT FASTINGP ERFORMED BY: CB [facility] Shsjbp6691 [facility] [id number] Lymphocytes #/vol (Bld) 2.5 {x10E3/uL} Normal 0.7-3.1 [facility] Work Phone: Comment on above: PATIENT NOT FASTINGP ERFORMED BY: LabCoAcuteCare Health SystemSjzvyh5494 [facility] [id number] Lymphocytes/100 WBC (Bld) 33 % Normal 14-46 [facility] Work Phone: Comment on above: PATIENT NOT FASTINGP ERFORMED BY: [facility]6370 [facility] [id number] MCH Entitic mass (RBC) 32.4 pg Normal 26.6-33.0 [facility] Work Phone: Comment on above: PATIENT NOT FASTINGP ERFORMED BY: [facility] Iatrdy4467 [facility]in [place] [id number] MCHC mass conc (RBC) 33.0 g/dL Normal 31.5-35.7 Comp [facility] centerens[facility] Internal [facility] Work Phone: Comment on above: PATIENT NOT FASTINGP ERFORMED BY: [facility] Veqhta5448 [facility]in [place] [id number] MCV Entitic volume (RBC) 98 fL Abnormal 79-97 [facility] Work Phone: Comment on above: PATIENT NOT FASTINGP ERFORMED BY: [facility] Itrvfc3755 [facility]bl[facility] [place] [id number] Monocytes #/vol (Bld) 0.6 {x10E3/uL} Normal 0.1-0.9 [facility] Work Phone: Comment on above: PATIENT NOT FASTINGP ERFORMED BY: [place] [facility] Vvjaip1498 [address] Roadblin [place] [id number] Monocytes/100 WBC (Bld) 8 % Normal 4-12 [facility] Work Phone: Comment on above: PATIENT NOT FASTINGP ERFORMED BY: [place] [facility] Rprjhb4652 [address] Roadblin [place] [id number] Neutrophils #/vol (Bld) 4.3 {x10E3/uL} Normal 1.4-7.0 [facility] Work Phone: Comment on above: PATIENT NOT FASTINGP ERFORMED BY: CB [facility] Aajazh3188 [facility]in [place] [id number] Neutrophils/100 WBC (Bld) 57 % Normal 40-74 [facility] Work Phone: Comment on above: PATIENT NOT FASTINGP ERFORMED BY: [place] [facility] Wzltbv0903 [facility] [id number] Platelets #/vol (Bld) 358 {x10E3/uL} Normal 150-379 [facility] Work Phone: Comment on above: PATIENT NOT FASTINGP ERFORMED BY: CB [facility] Quferp4867 [facility] [id number] RBC #/vol (Bld) 3.80 {x10E6/uL} Normal 3.77-5.28 [facility] Internal Medicine Work Phone: Comment on above: PATIENT NOT FASTINGP ERFORMED BY: CB [facility] Akgigg3249 [facility]in [place] [id number] WBC #/vol (Bld) 7.6 {x10E3/uL} Normal 3.4-10.8 [facility] Internal Medicine Work Phone: Comment on above: PATIENT NOT FASTINGP ERFORMED BY: CB [facility] Wivdbk2367 [facility] [place] [id number] CBC WITH MANUAL DIFF (05173) on 06-26-2014 Basophils Auto #/vol (Bld) 0.1 {x10E3/uL} Normal 0.0-0.2 [facility] Work Phone: Basophils/100 WBC Auto (Bld) 1 % Normal 0-3 [facility] Work Phone: Eosinophils Auto #/vol (Bld) 0.1 {x10E3/uL} Normal 0.0-0.4 [facility] Work Phone: Eosinophils/100 WBC Auto (Bld) 1 % Normal 0-5 [facility] Work Phone: Erythrocyte distribution width Auto Ratio (RBC) 12.5 % Normal 12.3-15.4 [facility] Work Phone: Hematocrit Auto Volume Fraction (Bld) 37.3 % Normal 34.0-46.6 [facility] Work Phone: Hemoglobin mass conc (Bld) 12.3 g/dL Normal 11.1-15.9 [facility] Work Phone: Comment on above: PATIENT NOT FASTINGP ERFORMED BY: XO1Formerly [facility] [id number] Immature granulocytes #/vol (Bld) 0.0 {x10E3/uL} Normal 0.0-0.1 [facility] Work Phone: Comment on above: PATIENT NOT FASTINGP ERFORMED BY: [facility] [id number] Immature granulocytes/100 WBC (Bld) 0 % Normal 0-2 [facility] Work Phone: Comment on above: PATIENT NOT FASTINGP ERFORMED BY: XO1Formerly [facility] & [facility] [id number] Lymphocytes Auto #/vol (Bld) 2.5 {x10E3/uL} Normal 0.7-3.1 [facility] Work Phone: Lymphocytes/100 WBC Auto (Bld) 33 % Normal 14-46 [facility] Work Phone: MCH Auto Entitic mass (RBC) 32.4 pg Normal 26.6-33.0 [facility] Work Phone: MCHC Auto mass conc (RBC) 33.0 g/dL Normal 31.5-35.7 [facility] Work Phone: MCV Auto Entitic volume (RBC) 98 fL Abnormal 79-97 [facility] Work Phone: Monocytes Auto #/vol (Bld) 0.6 {x10E3/uL} Normal 0.1-0.9 [facility] Work Phone: Monocytes/100 WBC Auto (Bld) 8 % Normal 4-12 [facility] Work Phone: Neutrophils Auto #/vol (Bld) 4.3 {x10E3/uL} Normal 1.4-7.0 [facility] Work Phone: Neutrophils/100 WBC Auto (Bld) 57 % Normal 40-74 [facility] Work Phone: Platelets Auto #/vol (Bld) 358 {x10E3/uL} Normal 150-379 [facility] Work Phone: RBC Auto #/vol (Bld) 3.80 {x10E6/uL} Normal 3.77-5.28 [facility] Work Phone: WBC Auto #/vol (Bld) 7.6 {x10E3/uL} Normal 3.4-10.8 [facility] Work Phone: Celiac Disease Comphrehensiv e Profile ([id number])on 06-26-2014 Endomysium IgA Ql (S) Negative Normal [facility] Work Phone: Comment on above: PATIENT NOT FASTINGP ERFORMED BY: [facility] Faebfs5056 Allan Tipp24[facility] [id number] Information: [id number] Gliadin peptide IgA Qn (S) 4 {units} Normal 0-19 [facility] Work Phone: Comment on above: Negative 0 - 19 Weak Positive 20 - 30 Moderate to Strong Positive >30 PATIENT NOT FASTINGP ERFORMED BY: [facility] Gbzqak2508 [facility] [id number] Information: [id number] Gliadin peptide IgG Qn (S) 2 {units} Normal 0-19 [facility] Work Phone: Comment on above: Negative 0 - 19 Weak Positive 20 - 30 Moderate to Strong Positive >30 PATIENT NOT FASTINGP ERFORMED BY: [facility]6370 [facility] [id number] Information: [id number] IgA mass conc 245 mg/dL Normal 91-414 Comprehensi ve Internal Medicine Work Phone: Comment on above: PATIENT NOT FASTINGP ERFORMED BY: [facility]umperMary [facility] Hospital6370 [facility] [id number] Information: [id number] Tissue transglutaminase IgA Qn (S) <2 Normal 0-3 [facility] Work Phone: Comment on above: Negative 0 - 3 Weak Positive 4 - 10 Positive >10 . Tissue Transglutaminase (tTG) has been identified as the endomysial antigen. Studies have demonstr- ated that endomysial IgA antibodies have over 99% specificity for gluten sensitive enteropathy. PATIENT NOT FASTINGP ERFORMED BY: ZumperSoutheast Missouri HospitalKqaiuk1688 [facility] [id number] Information: [id number] Tissue transglutaminase IgG Qn (S) <2 Normal 0-5 [facility] Work Phone: Comment on above: Negative 0 - 5 Weak Positive 6 - 9 Positive >9 PATIENT NOT FASTINGP ERFORMED BY: [facility]6370 [facility] [id number] Information: [id number] LIPASE (25764)on 06-26-2014 Lipase enzyme act/vol 26 U/L Normal 0-59 [facility] Work Phone: Comment on above: PATIENT NOT FASTINGP ERFORMED BY: [facility] Fmberl0578 [facility] [id number] METABOLIC PANEL, COMPREHENSI VE ([id number])on 06-26-2014 Albumin mass conc 4.3 g/dL Normal 3.5-5.5 Compreh ensive [facility] Medicine Work Phone: Comment on above: PATIENT NOT FASTINGP ERFORMED BY: [place] [facility] Xlnxvw7192 Allan [facility] [place] [id number] Albumin/Globulin mass ratio 1.6 {ratio} Normal 1.1-2.5 [facility] Work Phone: Comment on above: PATIENT NOT FASTINGP ERFORMED BY: [place] [facility] Yfrivx6944 Allan [facility] [id number] ALP enzyme act/vol 61 [iU]/L Normal 39-117 Compre [facility] Work Phone: Comment on above: PATIENT NOT FASTINGP ERFORMED BY: [place] [facility] Rtfomb1170 Allan [facility] [id number] ALT enzyme act/vol 9 [iU]/L Normal 0-32 Compre [facility] Medicine Work Phone: Comment on above: PATIENT NOT FASTINGP ERFORMED BY: [place] [facility] Ysvdnz5860 Allan [facility] [id number] AST enzyme act/vol 15 [iU]/L Normal 0-40 Compre [facility] Internal Medicine Work Phone: Comment on above: PATIENT NOT FASTINGP ERFORMED BY: [place] [facility] Yvomnh5603 Allan [facility] [id number] Bilirubin mass conc 0.4 mg/dL Normal 0.0-1.2 Compr [facility] Internal Medicine Work Phone: Comment on above: PATIENT NOT FASTINGP ERFORMED BY: [place] [facility] Lxdrss4343 Allan [facility] [id number] Calcium mass conc 9.8 mg/dL Normal 8.7-10.2 Compreh [facility] Work Phone: Comment on above: PATIENT NOT FASTINGP ERFORMED BY: [place] [facility] Ggaivd5059 Allan [facility] [id number] Chloride molar conc 101 mmol/L Normal 97-108 Compr ensive [facility] Medicine Work Phone: Comment on above: PATIENT NOT FASTINGP ERFORMED BY: [place] [facility] Rhrhex2633 Allan RoadDublin [place] [id number] CO2 molar conc 20 mmol/L Normal 18-29 Comprehens karen Internal Medicine Work Phone: Comment on above: PATIENT NOT FASTINGP ERFORMED BY: [place] [facility] Elguub1523 Allan Roadblin [place] [id number] Creatinine mass conc 0.78 mg/dL Normal 0.57-1.00 Comp rehensive [facility] Medicine Work Phone: Comment on above: PATIENT NOT FASTINGP ERFORMED BY: [facility] Alvues4820 Allan RoadCritical Access Hospitalin [place] [id number] GFR/1.73 sq M predicted among blacks CKD-EPI vol rate/area (S/P/Bld) 127 mL/min/1.73 Normal Comprehensiv e [facility] Medicine Work Phone: Comment on above: PATIENT NOT FASTINGP ERFORMED BY: [facility] Aqllxy0559 Allan RoadCritical Access Hospitalin [place] [id number] GFR/1.73 sq M predicted among non-blacks CKD-EPI vol rate/area (S/P/Bld) 110 mL/min/1.73 Normal [facility] Work Phone: Comment on above: PATIENT NOT FASTINGP ERFORMED BY: [place] [facility] Ulvmtp5854 Allan [facility] [place] [id number] Globulin Calculated mass conc (S) 2.7 g/dL Normal 1.5-4.5 [facility] Work Phone: Glucose mass conc 77 mg/dL Normal 65-99 Compreh ensive [facility] Medicine Work Phone: Comment on above: PATIENT NOT FASTINGP ERFORMED BY: CB [facility] Lmugnk6535 Allan [facility] [place] [id number] Potassium molar conc 4.3 mmol/L Normal 3.5-5.2 Comp rehensive [facility] Medicine Work Phone: Comment on above: PATIENT NOT FASTINGP ERFORMED BY: [facility] Drglzk9462 [facility] [place] [id number] Protein mass conc 7.0 g/dL Normal 6.0-8.5 Compreh ensive [facility] Medicine Work Phone: Comment on above: PATIENT NOT FASTINGP ERFORMED BY: V[place] Antoniogabby Iykbhv2616 [facility] [place] [id number] Sodium molar conc 136 mmol/L Normal 134-144 Compreh ensive [facility] Medicine Work Phone: Comment on above: PATIENT NOT FASTINGP ERFORMED BY: [place] AdiTommy AgustinViydqs1692 Allan [facility] [place] [id number] Urea nitrogen mass conc 11 mg/dL Normal 6-20 [facility] Work Phone: Comment on above: PATIENT NOT FASTINGP ERFORMED BY: [place] Lab[facility] Umsglh2373 Allan [facility] [place] [id number] Urea nitrogen/Creatinine mass ratio 14 mg/mg Normal 8-20 [facility] Work Phone: Comment on above: PATIENT NOT FASTINGP ERFORMED BY: V[place] Agustinlin6370 Allan [facility] [place] [id number] METABOLIC PANEL, COMPREHENSI VE ([id number])Ordered By: Business Support on 06-26-2014 Globulin mass conc (S) 2.7 g/dL Normal 1.5-4.5 [facility] Work Phone: Comment on above: PATIENT NOT FASTINGP ERFORMED BY: [place] AdiTommy AgustinUykdro8434 Allan [facility] [place] [id number] TEST - SERUM QUANT ITATIVE (HCG) ([id number])on 06-26-2014 HCG.beta subunit ( test) Ql Negative Normal Comprehensiv e Internal Medicine Work Phone: Comment on above: PATIENT NOT FASTINGP ERFORMED BY: [place] [facility] Wnxwlg5884 Allan [facility] [place] [id number] TSH (18278)on 06-26-2014 Thyrotropin Qn 1.200 {uIU/mL} Normal 0.450-4.500 Compr ehensive Internal Medicine Work Phone: Comment on above: PATIENT NOT FASTINGP ERFORMED BY: [place] Lab[facility] Avubgc9461 [facility] [place] [id number] HPV automatic (53783)on 03-19 HPV 16+18+31+33+35+39+45 +51+52+56+58+59+68 DNA Probe+sig amp Ql (Cvx) Negative Normal [facility] Work Phone: Comment on above: This high-risk HPV t est detects thirteen high-risk types(16/18/31/33/35/39/45/51/52/56/58/59/68) without differentiation. . Source.............C ervical;EndocervicalNo. of containers..01 CYTYC Thin Prep VialPATIENT NOT FASTINGPERFORMED BY: Laticínios Bom Gosto/LBR [place] [id number] BY: =G Y[address] [place] [address] [employer] [place] [id number] Information: [id number] Microscopic observation Other stain Nom (Unsp spec) . Normal [facility] Work Phone: Comment on above: Source.............C ervical;EndocervicalNo. of containers..01 CYTYC Thin Prep VialPATIENT NOT FASTINGPERFORMED BY: Laticínios Bom Gosto/LBR [place] [id number] BY: =G [employer] [place] [id number] Information: [id number] Pathology report final diagnosis Narrative [facility] Normal [facility] Work Phone: Comment on above: NEGATIVE FOR INTRAEP ITHELIAL LESION AND MALIGNANCY.Satisfactory for evaluation. Endocervical and/or squamous metaplasticcells (endocervical component) are present.V70.0 ; Routine general medical examination at health care facilityChkenneth Walters Cuff Turner Machine Operator (ASCP) Source.............C ervical;EndocervicalNo. of containers..01 CYTYC Thin Prep VialPATIENT NOT FASTINGPERFORMED BY: WB [facility] Rthysmxhqd051 Meraux Panchormitchellp[facility] [place] [id number] BY: =G [facility] Qolvsquhys253 Meraux Panchorlesp[facility] [place] [id number] Information: [id number] HPV automatic (81168) PAPSMR [facility] Internal [facility] Work Phone: Comment on above: The Pap smear is a s creening test designed to aid in the detection ofpremalignant and malignant conditions of the uterine cervix. It is not adiagnostic procedure and should not be used as the sole means of detectingcervical cancer. Both false-positive and false-negative reports do occur. .This liquid based ThinPrep(R) pap test was screened with theuse of an image guided system. Source.............C ervical;EndocervicalNo. of containers..01 CYTYC Thin Prep VialPATIENT NOT FASTINGPERFORMED BY: WB [facility] Nxxuwdafyr287 Meraux Zuleikapenn medicine [facility] W [id number] BY: =G [facility] Phmsqdffvu708 Meraux Panchorlesp[facility] medicine [facility] [place] [id number] Information: [id number] Vital Signs Date Time Vital Sign Value Performing Clinician Facility 12-22-2022 17:29-0500 Diastolic Blood Pressure Non-Invasive 98 [address] [facility] 12-22-2022 17:29-0500 Heart rate 92 /min CARITO JURADO MD [facility] 12-22-2022 17:29-0500 Respiratory rate 16 /min CARITO JURADO MD [facility] 12-22-2022 17:29-0500 Systolic Blood Pressure Non-Invasive 135 [address] [facility] 12-22-2022 16:04-0500 Body temperature 98.6 [degF] CARITO JURADO MD [facility] 12-22-2022 16:04-0500 Body weight 63.8 kg CARITO JURADO MD [facility] 12-22-2022 16:04-0500 Diastolic Blood Pressure Non-Invasive 90 [address] [facility] 12-22-2022 16:04-0500 Heart rate 100 /min CARITO JURADO MD [facility] 12-22-2022 16:04-0500 Respiratory rate 18 /min CARITO JURADO MD [facility] 12-22-2022 16:04-0500 Systolic Blood Pressure Non-Invasive 124 [address] [facility] 08-28-2022 15:36-0400 Body height 164.5 cm Marissa Blackwood GREENBELT.WORKFORCE ADVISOR Work Phone: [facility] 08-28-2022 15:36-0400 Body temperature 98.8 [degF] Marissa Blackwood GREENBELT.WORKFORCE ADVISOR Work Phone: [facility] 08-28-2022 15:36-0400 Body weight 62.14 kg Marissa Blackwood GREENBELT.WORKFORCE ADVISOR Work Phone: [facility] 08-28-2022 15:36-0400 Diastolic blood pressure 70 mm[Hg] Marissa Blackwood GREENBELT.WORKFORCE ADVISOR Work Phone: [facility] 08-28-2022 15:36-0400 Heart rate 84 /min Marissa Blackwood APRN.WORKFORCE ADVISOR Work Phone: [facility] 08-28-2022 15:36-0400 SaO2% (BldA) [Mass fraction] 98 % Marissa Blackwood GREENBELT.WORKFORCE ADVISOR Work Phone: [facility] 08-28-2022 15:36-0400 Systolic blood pressure 122 mm[Hg] Marissa Blackwood APRN.WORKFORCE ADVISOR Work Phone: [facility] 07-28-2022 14:51-0400 Body height 164.5 cm Marissa Blackwood APRN.WORKFORCE ADVISOR Work Phone: [facility] 07-28-2022 14:51-0400 Body temperature 98.1 [degF] Marissa Blackwood APRN.WORKFORCE ADVISOR Work Phone: [facility] 07-28-2022 14:51-0400 Body weight 63.87 kg Marissa Blackwood APRN.WORKFORCE ADVISOR Work Phone: [facility] 07-28-2022 14:51-0400 Diastolic blood pressure 62 mm[Hg] Marissa Blackwood APRN.WORKFORCE ADVISOR Work Phone: [facility] 07-28-2022 14:51-0400 Heart rate 79 /min Marissa Blackwood APRN.WORKFORCE ADVISOR Work Phone: [facility] 07-28-2022 14:51-0400 Respiratory rate 16 /min Marissa Blackwood APRN.WORKFORCE ADVISOR Work Phone: [facility] 07-28-2022 14:51-0400 SaO2% (BldA) [Mass fraction] 98 % Marissa Blackwood APRN.WORKFORCE ADVISOR Work Phone: [facility] 07-28-2022 14:51-0400 Systolic blood pressure 110 mm[Hg] Marissa Blackwood APRN.WORKFORCE ADVISOR Work Phone: [facility] 02-10-2021 18:20-0400 Body height 163.83 cm Luis Restrepo MD -Medical [facility] Work Phone: 02-10-2021 18:20-0400 Body mass index (BMI) [Ratio] 23.08 kg/m2 Luis Restrepo MD -Medical [facility] Work Phone: 02-10-2021 18:20-0400 Body surface area Derived from formula 1.67 m2 Luis Restrepo [facility] Work Phone: 02-10-2021 18:20-0400 Body temperature 97.5 [degF] Luis Restrepo MD -Medical [facility] Work Phone: 02-10-2021 18:20-0400 Body weight 61.94 kg Luis Restrepo MD -Medical [facility] Work Phone: 02-10-2021 18:20-0400 Diastolic blood pressure 78 mm[Hg] Luis Restrepo MD [facility] Work Phone: 02-10-2021 18:20-0400 Heart rate 74 /min Luis Restrepo MD -[facility] Work Phone: 02-10-2021 18:20-0400 Systolic blood pressure 112 mm[Hg] Luis Restrepo MD -[facility] Work Phone: 07-09-2017 11:46-0400 BMI (Body Mass Index) 22.31 kg/m2 Cat Gutierrez [facility] Medicine Work Phone: 07-09-2017 11:46-0400 BP Diastolic 62 mm[Hg] Cat Gutierrez [facility] Internal Medicine Work Phone: Comment on above: Patient Position: Sitting; Cuff Location : Left Arm; Cuff Size: Standard 07-09-2017 11:46-0400 BP Systolic 98 mm[Hg] Cat Gutierrez [facility] Internal Medicine Work Phone: Comment on above: Patient Position: Sitting; Cuff Location : Left Arm; Cuff Size: Standard 07-09-2017 11:46-0400 BSA (Body Surface Area) 1.63 m2 Cat Gutierrez [facility] Work Phone: 07-09-2017 11:46-0400 Height 162.56 cm Cat Gutierrez [facility] Work Phone: 07-09-2017 11:46-0400 Pulse (Heart Rate) 65 /min Cat Gutierrez [facility] Work Phone: Comment on above: Pattern: Regular 07-09-2017 11:46-0400 Pulse Oximetry 99 % Cat Gutierrez [facility] Work Phone: Comment on above: Room air 07-09-2017 11:46-0400 Respiratory Rate 18 /min Cat Gutierrez [facility] Work Phone: Comment on above: Pattern: Unlabored 07-09-2017 11:46-0400 Weight 58.97 kg Cat Gutierrez [facility] Work Phone: 04-30-2017 15:13-0400 BMI (Body Mass Index) 22.51 kg/m2 Cat Gutierrez [facility] Work Phone: 04-30-2017 15:13-0400 BP Diastolic 78 mm[Hg] Cat Gutierrez [facility] Work Phone: Comment on above: Patient Position: Sitting; Cuff Location : Left Arm; Cuff Size: Standard 04-30-2017 15:13-0400 BP Systolic 120 mm[Hg] Cat Gutierrez [facility] Internal [facility] Work Phone: Comment on above: Patient Position: Sitting; Cuff Location : Left Arm; Cuff Size: Standard 04-30-2017 15:13-0400 BSA (Body Surface Area) 1.63 m2 Cat Gutierrez [facility] Work Phone: 04-30-2017 15:13-0400 Height 162.56 cm Cat Gutierrez [facility] Work Phone: 04-30-2017 15:13-0400 Pulse (Heart Rate) 89 /min Cat Gutierrez [facility] Work Phone: Comment on above: Pattern: Regular 04-30-2017 15:13-0400 Pulse Oximetry 99 % Cat Gutierrez [facility] Work Phone: Comment on above: Room air 04-30-2017 15:13-0400 Respiratory Rate 18 /min Cat Gutierrez [facility] Work Phone: Comment on above: Pattern: Unlabored 04-30-2017 15:13-0400 Weight 59.48 kg Cat Bello [facility] Work Phone: 08-16-2016 08:03-0400 BMI (Body Mass Index) 22.14 kg/m2 Cat Bello [facility] Work Phone: 08-16-2016 08:03-0400 Body Temperature 97.9 [degF] Cat Gutierrez [facility] Work Phone: 08-16-2016 08:03-0400 BP Diastolic 78 mm[Hg] Cat Gutierrez [facility] Work Phone: Comment on above: Patient Position: Sitting; Cuff Location : Left Arm; Cuff Size: Standard 08-16-2016 08:03-0400 BP Systolic 122 mm[Hg] Cat Gutierrez [facility] Work Phone: Comment on above: Patient Position: Sitting; Cuff Location : Left Arm; Cuff Size: Standard 08-16-2016 08:03-0400 BSA (Body Surface Area) 1.62 m2 Cat Gutierrez [facility] Work Phone: 08-16-2016 08:03-0400 Height 162.56 cm Cat Gutierrez [facility] Work Phone: 08-16-2016 08:03-0400 Pulse (Heart Rate) 110 /min Cat Bello [facility] Work Phone: Comment on above: Pattern: Regular 08-16-2016 08:03-0400 Pulse Oximetry 100 % Cat Gutierrez [facility] Medicine Work Phone: Comment on above: Room air 08-16-2016 08:03-0400 Respiratory Rate 18 /min Cat Bello [facility] Work Phone: Comment on above: Pattern: Unlabored 08-16-2016 08:03-0400 Weight 58.51 kg Cat Bello [facility] Work Phone: 05-01-2016 14:10-0400 BMI (Body Mass Index) 22.14 kg/m2 Cat Gutierrez [facility] Work Phone: 05-01-2016 14:10-0400 BP Diastolic 62 mm[Hg] Cat Gutierrez [facility] Work Phone: Comment on above: Patient Position: Sitting; Cuff Location : Left Arm; Cuff Size: Standard 05-01-2016 14:10-0400 BP Systolic 110 mm[Hg] Cat Gutierrez [facility] Work Phone: Comment on above: Patient Position: Sitting; Cuff Location : Left Arm; Cuff Size: Standard 05-01-2016 14:10-0400 BSA (Body Surface Area) 1.62 m2 Cat Gutierrez [facility] Work Phone: 05-01-2016 14:10-0400 Height 162.56 cm Cat Gutierrez [facility] Work Phone: 05-01-2016 14:10-0400 Pulse (Heart Rate) 85 /min Cat Gutierrez [facility] Work Phone: Comment on above: Pattern: Regular 05-01-2016 14:10-0400 Pulse Oximetry 98 % Cat Gutierrez [facility] Work Phone: Comment on above: Room air 05-01-2016 14:10-0400 Respiratory Rate 18 /min Cat Gutierrez [facility] Medicine Work Phone: Comment on above: Pattern: Unlabored 05-01-2016 14:10-0400 Weight 58.51 kg Cat Gutierrez [facility] Work Phone: 04-21-2016 07:48-0400 BMI (Body Mass Index) 21.89 kg/m2 Cat Gutierrez [facility] Work Phone: 04-21-2016 07:48-0400 Body Temperature 97.8 [degF] Cat Gutierrez [facility] Work Phone: Comment on above: Method: Temporal 04-21-2016 07:48-0400 BP Diastolic 70 mm[Hg] Cat Gutierrez [facility] Work Phone: Comment on above: Patient Position: Sitting; Cuff Location : Left Arm; Cuff Size: Standard 04-21-2016 07:48-0400 BP Systolic 110 mm[Hg] Cat Gutierrez [facility] Work Phone: Comment on above: Patient Position: Sitting; Cuff Location : Left Arm; Cuff Size: Standard 04-21-2016 07:48-0400 BSA (Body Surface Area) 1.62 m2 Cat Gutierrez [facility] Work Phone: 04-21-2016 07:48-0400 Height 162.56 cm Cat Gutierrez [facility] Work Phone: 04-21-2016 07:48-0400 Pulse (Heart Rate) 91 /min Cat Gutierrez [facility] Work Phone: Comment on above: Pattern: Regular 04-21-2016 07:48-0400 Pulse Oximetry 99 % Cat Gutierrez [facility] Work Phone: Comment on above: Room air 04-21-2016 07:48-0400 Respiratory Rate 16 /min Cat Gutierrez [facility] Work Phone: Comment on above: Pattern: Unlabored 04-21-2016 07:48-0400 Weight 57.83 kg Cat Gutierrez [facility] Work Phone: 12-02-2015 12:19-0500 BMI (Body Mass Index) 24.29 kg/m2 Cat Gutierrez [facility] Work Phone: 12-02-2015 12:19-0500 BP Diastolic 78 mm[Hg] Cat Gutierrez [facility] Work Phone: Comment on above: Patient Position: Sitting; Cuff Location : Left Arm; Cuff Size: Large 12-02-2015 12:19-0500 BP Systolic 122 mm[Hg] Cat Gutierrez [facility] Work Phone: Comment on above: Patient Position: Sitting; Cuff Location : Left Arm; Cuff Size: Large 12-02-2015 12:19-0500 BSA (Body Surface Area) 1.69 m2 Cat Gutierrez [facility] Work Phone: 12-02-2015 12:19-0500 Height 162.56 cm Cat Gutierrez [facility] Work Phone: 12-02-2015 12:19-0500 Pulse (Heart Rate) 82 /min Cat Bello [facility] Work Phone: Comment on above: Pattern: Regular 12-02-2015 12:19-0500 Pulse Oximetry 99 % Cat Bello [facility] Work Phone: Comment on above: Room air 12-02-2015 12:19-0500 Respiratory Rate 18 /min Cat Bello [facility] Work Phone: Comment on above: Pattern: Unlabored 12-02-2015 12:19-0500 Weight 64.18 kg Cat Bello [facility] Work Phone: 11-03-2015 10:29-0500 BMI (Body Mass Index) 24.55 kg/m2 Cat Gutierrez [facility] Work Phone: 11-03-2015 10:29-0500 Body Temperature 98.5 [degF] Cat Gutierrez [facility] Work Phone: Comment on above: Method: Oral 11-03-2015 10:29-0500 BP Diastolic 68 mm[Hg] Cat Gutierrez [facility] Work Phone: Comment on above: Patient Position: Sitting; Cuff Location : Left Arm; Cuff Size: Standard 11-03-2015 10:29-0500 BP Systolic 112 mm[Hg] Cat Bello [facility] Work Phone: Comment on above: Patient Position: Sitting; Cuff Location : Left Arm; Cuff Size: Standard 11-03-2015 10:29-0500 BSA (Body Surface Area) 1.7 m2 [facility] Work Phone: 11-03-2015 10:29-0500 Height 162.56 cm [facility] Work Phone: 11-03-2015 10:29-0500 Pulse (Heart Rate) 90 /min [facility] Work Phone: Comment on above: Pattern: Regular 11-03-2015 10:29-0500 Pulse Oximetry 99 % [facility] Work Phone: Comment on above: Room air 11-03-2015 10:29-0500 Respiratory Rate 18 /min [facility] Work Phone: 11-03-2015 10:29-0500 Weight 64.86 kg [facility] Work Phone: 10-11-2015 14:41-0500 BMI (Body Mass Index) 24.55 kg/m2 [facility] Work Phone: 10-11-2015 14:41-0500 Body Temperature 97.8 [degF] [facility] Work Phone: 10-11-2015 14:41-0500 BP Diastolic 76 mm[Hg] [facility] Work Phone: Comment on above: Patient Position: Sitting; Cuff Location : Left Arm; Cuff Size: Standard 10-11-2015 14:41-0500 BP Systolic 106 mm[Hg] [facility] Work Phone: Comment on above: Patient Position: Sitting; Cuff Location : Left Arm; Cuff Size: Standard 10-11-2015 14:41-0500 BSA (Body Surface Area) 1.7 m2 [facility] Work Phone: 10-11-2015 14:41-0500 Height 162.56 cm [facility] Work Phone: 10-11-2015 14:41-0500 Pulse (Heart Rate) 102 /min [facility] Work Phone: Comment on above: Pattern: Regular 10-11-2015 14:41-0500 Pulse Oximetry 98 % [facility] Work Phone: Comment on above: Room air 10-11-2015 14:41-0500 Respiratory Rate 16 /min [facility] Work Phone: Comment on above: Pattern: Unlabored 10-11-2015 14:41-0500 Weight 64.86 kg [facility] Work Phone: 09-23-2015 10:09-0500 BMI (Body Mass Index) 24.27 kg/m2 [facility] Work Phone: 09-23-2015 10:09-0500 BP Diastolic 70 mm[Hg] Cat Guteirrez [facility] Work Phone: Comment on above: Patient Position: Sitting; Cuff Location : Left Arm; Cuff Size: Large 09-23-2015 10:09-0500 BP Systolic 110 mm[Hg] Cat Gutierrez [facility] Work Phone: Comment on above: Patient Position: Sitting; Cuff Location : Left Arm; Cuff Size: Large 09-23-2015 10:09-0500 BSA (Body Surface Area) 1.69 m2 Cat Gutierrez [facility] Work Phone: 09-23-2015 10:09-0500 Height 162.56 cm Cat Gutierrez [facility] Work Phone: 09-23-2015 10:09-0500 Pulse (Heart Rate) 66 /min Cat Gutierrez [facility] Work Phone: Comment on above: Pattern: Regular 09-23-2015 10:09-0500 Pulse Oximetry 99 % Cat Gutierrez [facility] Work Phone: Comment on above: Room air 09-23-2015 10:09-0500 Respiratory Rate 20 /min [facility] Work Phone: Comment on above: Pattern: Unlabored 09-23-2015 10:09-0500 Weight 64.13 kg [facility] Work Phone: 09-02-2015 11:47-0400 BMI (Body Mass Index) 24.61 kg/m2 Cat Gutierrez [facility] Work Phone: 09-02-2015 11:47-0400 BP Diastolic 78 mm[Hg] [facility] Work Phone: Comment on above: Patient Position: Sitting; Cuff Location : Left Arm; Cuff Size: Small 09-02-2015 11:47-0400 BP Systolic 118 mm[Hg] [facility] Work Phone: Comment on above: Patient Position: Sitting; Cuff Location : Left Arm; Cuff Size: Small 09-02-2015 11:47-0400 BSA (Body Surface Area) 1.7 m2 [facility] Work Phone: 09-02-2015 11:47-0400 Height 162.56 cm [facility] Work Phone: 09-02-2015 11:47-0400 Pulse (Heart Rate) 101 /min [facility] Work Phone: Comment on above: Pattern: Regular 09-02-2015 11:47-0400 Pulse Oximetry 98 % Cat Gutierrez [facility] Work Phone: Comment on above: Room air 09-02-2015 11:47-0400 Respiratory Rate 18 /min [facility] Work Phone: Comment on above: Pattern: Unlabored 09-02-2015 11:47-0400 Weight 65.03 kg [facility] Work Phone: 03-29-2015 10:11-0400 BMI (Body Mass Index) 25.92 kg/m2 Cat Gutierrez [facility] Work Phone: 03-29-2015 10:11-0400 Body Temperature 97.8 [degF] Cat Gutierrez [facility] Work Phone: Comment on above: Method: Oral 03-29-2015 10:11-0400 BP Diastolic 82 mm[Hg] Cat Gutierrez [facility] Work Phone: Comment on above: Patient Position: Sitting; Cuff Location : Left Arm; Cuff Size: Standard 03-29-2015 10:11-0400 BP Systolic 118 mm[Hg] [facility] Work Phone: Comment on above: Patient Position: Sitting; Cuff Location : Left Arm; Cuff Size: Standard 03-29-2015 10:110400 BSA (Body Surface Area) 1.74 m2 Cat Gutierrez [facility] Work Phone: 03-29-2015 10:110400 Height 162.56 cm Cat Gutierrez [facility] Work Phone: 03-29-2015 10:11-0400 Pulse (Heart Rate) 76 /min Cat Gutierrez [facility] Work Phone: Comment on above: Pattern: Regular 03-29-2015 10:110400 Respiratory Rate 16 /min Cat Gutierrez [facility] Work Phone: Comment on above: Pattern: Unlabored 03-29-2015 10:110400 Weight 68.49 kg Cat Gutierrez [facility] Work Phone: 03-19-2015 10:47-0400 BMI (Body Mass Index) 26.61 kg/m2 Cat Gutierrez [facility] Work Phone: 03-19-2015 10:47-0400 Body Temperature 96.8 [degF] Cat Gutierrez [facility] Work Phone: 03-19-2015 10:47-0400 BP Diastolic 80 mm[Hg] Cat Gutierrez [facility] Work Phone: Comment on above: Patient Position: Sitting; Cuff Location : Left Arm; Cuff Size: Standard 03-19-2015 10:47-0400 BP Systolic 110 mm[Hg] Cat Gutierrez [facility] Work Phone: Comment on above: Patient Position: Sitting; Cuff Location : Left Arm; Cuff Size: Standard 03-19-2015 10:47-0400 BSA (Body Surface Area) 1.76 m2 Cat Gutierrez [facility] Work Phone: 03-19-2015 10:47-0400 Height 162.56 cm Cat Gutierrez [facility] Work Phone: 03-19-2015 10:47-0400 Pulse (Heart Rate) 100 /min [facility] Work Phone: Comment on above: Pattern: Regular 03-19-2015 10:47-0400 Pulse Oximetry 96 % [facility] Work Phone: Comment on above: Room air 03-19-2015 10:47-0400 Respiratory Rate 16 /min [facility] Work Phone: Comment on above: Pattern: Unlabored 03-19-2015 10:47-0400 Weight 70.31 kg [facility] Work Phone: 03-05-2015 09:29-0400 BMI (Body Mass Index) 24.55 kg/m2 [facility] Work Phone: 03-05-2015 09:29-0400 Body Temperature 97.9 [degF] [facility] Work Phone: Comment on above: Method: Oral 03-05-2015 09:29-0400 BP Diastolic 70 mm[Hg] [facility] Work Phone: Comment on above: Patient Position: Sitting; Cuff Location : Left Arm; Cuff Size: Standard 03-05-2015 09:29-0400 BP Systolic 114 mm[Hg] [facility] Work Phone: Comment on above: Patient Position: Sitting; Cuff Location : Left Arm; Cuff Size: Standard 03-05-2015 09:29-0400 BSA (Body Surface Area) 1.7 m2 [facility] Work Phone: 03-05-2015 09:29-0400 Height 162.56 cm [facility] Work Phone: 03-05-2015 09:29-0400 Pulse (Heart Rate) 90 /min [facility] Work Phone: Comment on above: Pattern: Regular 03-05-2015 09:29-0400 Pulse Oximetry 98 % [facility] Work Phone: Comment on above: Room air 03-05-2015 09:29-0400 Respiratory Rate 17 /min [facility] Work Phone: 03-05-2015 09:29-0400 Weight 64.86 kg [facility] Work Phone: 02-17-2015 11:15-0400 BMI (Body Mass Index) 24.55 kg/m2 [facility] Work Phone: 02-17-2015 11:15-0400 Body Temperature 97.6 [degF] Cat Gutierrez [facility] Work Phone: Comment on above: Method: Oral 02-17-2015 11:15-0400 BP Diastolic 70 mm[Hg] [facility] Work Phone: Comment on above: Patient Position: Sitting; Cuff Location : Left Arm; Cuff Size: Standard 02-17-2015 11:15-0400 BP Systolic 112 mm[Hg] Cat Gutierrez [facility] Work Phone: Comment on above: Patient Position: Sitting; Cuff Location : Left Arm; Cuff Size: Standard 02-17-2015 11:15-0400 BSA (Body Surface Area) 1.7 m2 [facility] Work Phone: 02-17-2015 11:15-0400 Height 162.56 cm Cat Gutierrez [facility] Work Phone: 02-17-2015 11:15-0400 Pulse (Heart Rate) 90 /min [facility] Work Phone: Comment on above: Pattern: Regular 02-17-2015 11:15-0400 Pulse Oximetry 99 % Cat Gutierrez [facility] Work Phone: Comment on above: Room air 02-17-2015 11:15-0400 Respiratory Rate 16 /min Cta Gutierrez [facility] Work Phone: 02-17-2015 11:15-0400 Weight 64.86 kg Cat Gutierrez [facility] Work Phone: 09-21-2014 11:18-0500 BMI (Body Mass Index) 24.55 kg/m2 Cat Gutierrez [facility] Work Phone: 09-21-2014 11:18-0500 Body Temperature 97.3 [degF] Cat Gutier[facility] Work Phone: Comment on above: Method: Oral 09-21-2014 11:18-0500 BP Diastolic 78 mm[Hg] Cat Gutierrez [facility] Work Phone: Comment on above: Patient Position: Sitting; Cuff Location : Left Arm; Cuff Size: Standard 09-21-2014 11:18-0500 BP Systolic 112 mm[Hg] Cat Gutierrez [facility] Work Phone: Comment on above: Patient Position: Sitting; Cuff Location : Left Arm; Cuff Size: Standard 09-21-2014 11:18-0500 BSA (Body Surface Area) 1.7 m2 Cat Gutierrez [facility] Work Phone: 09-21-2014 11:18-0500 Height 162.56 cm Cat Gutierrez [facility] Work Phone: 09-21-2014 11:18-0500 Pulse (Heart Rate) 97 /min Cat Gutierrez [facility] Work Phone: Comment on above: Pattern: Regular 09-21-2014 11:18-0500 Pulse Oximetry 99 % Cat Gutierrez [facility] Work Phone: Comment on above: Room air 09-21-2014 11:18-0500 Respiratory Rate 16 /min Cat Gutier[facility] Work Phone: 09-21-2014 11:18-0500 Weight 64.86 kg Cat Gutierrez [facility] Work Phone: 08-26-2014 11:19-0400 BMI (Body Mass Index) 24.55 kg/m2 Cat Gutier[facility] Work Phone: 08-26-2014 11:19-0400 Body Temperature 99.2 [degF] Cat Gutierrez [facility] Work Phone: Comment on above: Method: Oral 08-26-2014 11:0400 BP Diastolic 82 mm[Hg] Cat Gutierrez [facility] Work Phone: Comment on above: Patient Position: Sitting; Cuff Location : Left Arm; Cuff Size: Standard 08-26-2014 11:19-0400 BP Systolic 122 mm[Hg] Cat Gutierrez [facility] Work Phone: Comment on above: Patient Position: Sitting; Cuff Location : Left Arm; Cuff Size: Standard 08-26-2014 11:0400 BSA (Body Surface Area) 1.7 m2 Cat Gutierrez [facility] Work Phone: 08-26-2014 11:19-0400 Height 162.56 cm Cat Gutierrez [facility] Work Phone: 08-26-2014 11:19-0400 Pulse (Heart Rate) 97 /min Cat Gutierrez [facility] Work Phone: Comment on above: Pattern: Regular 08-26-2014 11:0400 Pulse Oximetry 98 % Cat Gutierrez [facility] Work Phone: Comment on above: Room air 08-26-2014 11:190400 Respiratory Rate 16 /min Cat Gutierrez [facility] Work Phone: 08-26-2014 11:19-0400 Weight 64.86 kg Cat Gutierrez [facility] Work Phone: 08-04-2014 11:23-0400 BMI (Body Mass Index) 24.55 kg/m2 Cat Gutierrez [facility] Work Phone: 08-04-2014 11:23-0400 Body Temperature 97.7 [degF] Cat Gutierrez [facility] Work Phone: Comment on above: Method: Oral 08-04-2014 11:23-0400 BP Diastolic 72 mm[Hg] [facility] Work Phone: Comment on above: Patient Position: Sitting; Cuff Location : Left Arm; Cuff Size: Standard 08-04-2014 11:23-0400 BP Systolic 102 mm[Hg] Cat Gutierrez [facility] Work Phone: Comment on above: Patient Position: Sitting; Cuff Location : Left Arm; Cuff Size: Standard 08-04-2014 11:23-0400 BSA (Body Surface Area) 1.7 m2 Cat Gutier[facility] Work Phone: 08-04-2014 11:23-0400 Height 162.56 cm Cat Gutierrez [facility] Work Phone: 08-04-2014 11:23-0400 Pulse (Heart Rate) 92 /min Cat Gutier[facility] Work Phone: Comment on above: Pattern: Regular 08-04-2014 11:23-0400 Pulse Oximetry 99 % Cat Gutierrez [facility] Work Phone: Comment on above: Room air 08-04-2014 11:23-0400 Respiratory Rate 16 /min Cat Gutierrez [facility] Work Phone: 08-04-2014 11:23-0400 Weight 64.86 kg Cat Gutierrez [facility] Work Phone: 07-22-2014 11:04-0400 BMI (Body Mass Index) 24.55 kg/m2 Cat Gut[facility] Work Phone: 07-22-2014 11:04-0400 Body Temperature 98.2 [degF] Cat Gutierrez [facility] Work Phone: Comment on above: Method: Oral 07-22-2014 11:04-0400 BP Diastolic 70 mm[Hg] Cat Gutierrez [facility] Work Phone: Comment on above: Patient Position: Sitting; Cuff Location : Left Arm; Cuff Size: Standard 07-22-2014 11:04-0400 BP Systolic 110 mm[Hg] [facility] Work Phone: Comment on above: Patient Position: Sitting; Cuff Location : Left Arm; Cuff Size: Standard 07-22-2014 11:04-0400 BSA (Body Surface Area) 1.7 m2 Cat Gutierrez [facility] Work Phone: 07-22-2014 11:04-0400 Height 162.56 cm Cat Gutierrez [facility] Work Phone: 07-22-2014 11:04-0400 Pulse (Heart Rate) 94 /min Cat Gutier[facility] Work Phone: Comment on above: Pattern: Regular 07-22-2014 11:04-0400 Pulse Oximetry 98 % Cat Gutier[facility] Work Phone: Comment on above: Room air 07-22-2014 11:04-0400 Respiratory Rate 18 /min Cat Gutier[facility] Work Phone: 07-22-2014 11:04-0400 Weight 64.86 kg Cat Gutierrez [facility] Work Phone: 06-26-2014 10:45-0400 BMI (Body Mass Index) 24.55 kg/m2 Cat Gutier[facility] Work Phone: 06-26-2014 10:45-0400 Body Temperature 97.7 [degF] Cat Gutier[facility] Work Phone: Comment on above: Method: Tympanic 06-26-2014 10:45-0400 BP Diastolic 76 mm[Hg] Cat [facility] Work Phone: Comment on above: Patient Position: Sitting; Cuff Location : Left Arm; Cuff Size: Standard 06-26-2014 10:45-0400 BP Systolic 138 mm[Hg] Cat [facility] Work Phone: Comment on above: Patient Position: Sitting; Cuff Location : Left Arm; Cuff Size: Standard 06-26-2014 10:45-0400 BSA (Body Surface Area) 1.7 m2 Cat Gutier[facility] Work Phone: 06-26-2014 10:45-0400 Height 162.56 cm Cat Gutierrez [facility] Work Phone: 06-26-2014 10:45-0400 Pulse (Heart Rate) 92 /min [facility] Work Phone: Comment on above: Pattern: Regular 06-26-2014 10:45-0400 Pulse Oximetry 99 % [facility] Work Phone: Comment on above: Room air 06-26-2014 10:45-0400 Respiratory Rate 16 /min [facility] Work Phone: Comment on above: Pattern: Unlabored 06-26-2014 10:45-0400 Weight 64.86 kg [facility] Work Phone: 03-24-2014 12:08-0400 BMI (Body Mass Index) 26.43 kg/m2 Cat Gutierrez [facility] Work Phone: 03-24-2014 12:08-0400 Body Temperature 98.3 [degF] Cat Gutierrez [facility] Work Phone: Comment on above: Method: Oral 03-24-2014 12:08-0400 BP Diastolic 60 mm[Hg] Cat Gutierrez [facility] Work Phone: Comment on above: Patient Position: Sitting; Cuff Location : Left Arm; Cuff Size: Large 03-24-2014 12:08-0400 BP Systolic 110 mm[Hg] Cat Gutierrez [facility] Work Phone: Comment on above: Patient Position: Sitting; Cuff Location : Left Arm; Cuff Size: Large 03-24-2014 12:08-0400 BSA (Body Surface Area) 1.75 m2 [facility] Work Phone: 03-24-2014 12:08-0400 Height 162.56 cm [facility] Work Phone: 03-24-2014 12:08-0400 Pulse (Heart Rate) 91 /min [facility] Work Phone: Comment on above: Pattern: Regular 03-24-2014 12:08-0400 Pulse Oximetry 99 % Cat Gutierrez [facility] Work Phone: Comment on above: Room air 03-24-2014 12:08-0400 Respiratory Rate 20 /min Cat Gutierrez [facility] Work Phone: Comment on above: Pattern: Unlabored 03-24-2014 12:08-0400 Weight 69.85 kg Cat Gutierrez [facility] Work Phone: Encounters Encounter Date Encounter Type Care Provider Facility Start: 02-19-2023 ambulatory Marissa C Tril l [employer]ELT.WORKFORCE ADVISOR Work Phone: [facility] Comment on above: Fioricet keeps getti ng canceled Start: 01-19-2023 Encounter for gynecological examination (general) (routine) without abnormal findings [facility] Start: 01-19-2023 End: 01-19-2023 ambulatory [facility] Facility:[facility] Start: 01-18-2023 Refill Marissa C Tril l GREENBELT.WORKFORCE ADVISOR Work Phone: [facility] Comment on above: Refill Request Start: 01-14-2023 Refill Marissa C Tril l [employer]ELT.WORKFORCE ADVISOR Work Phone: [facility] Comment on above: Refill Request Start: 01-11-2023 ambulatory Marissa C Tril l [employer]T.WORKFORCE ADVISOR Work Phone: [facility] Comment on above: Spironolactone Tabs1 00MG Start: 12-25-2022 ambulatory Amber Jovel BRINDA [facility] Comment on above: ed outreach (Ed outr each/) Start: 12-22-2022 End: 12-22-2022 Emergency department patient visit JESUS BLACKWOOD CNP Facility:[facility] Start: 12-22-2022 End: 12-22-2022 Emergency department patient visit CARITO JURADO MD [facility] Start: 10-09-2022 Telephone encounter Marissa Blackwood APRN.CNP Work Phone: [facility] Comment on above: Lab Orders Start: 08-28-2022 End: 08-29-2022 ambulatory MARISSA BLACKWOOD Facility:[facility] Start: 08-28-2022 End: 08-28-2022 Patient encounter procedure Marissa Blackwood APRN.WORKFORCE ADVISOR Work Phone: [facility] Comment on above: Fatigue, unspecified type (Primary Dx); Nausea; Night sweats; Irritability; Hot flashes; Iron deficiency anemia, unspecified iron deficiency anemia type; MTHFR gene mutation; Depression screening Start: 08-23-2022 Telephone encounter Marissa Blackwood APRN.CNP Work Phone: [facility] Comment on above: Patient Question Start: 08-19-2022 Refill Marissa leo APRN.CNP Work Phone: [facility] Comment on above: Refill Request Start: 08-09-2022 Telephone encounter Marissa Blackwood APRN.CNP Work Phone: [facility] Comment on above: form for health scre ening (Pt dropped off form to be filled out for health screening for Ins.) Start: 08-01-2022 Telephone encounter Marissa Blackwood APRN.CNP Work Phone: [facility] Comment on above: Results Start: 07-28-2022 End: 07-29-2022 ambulatory MARISSA BLACKWOOD Facility:[facility] Start: 07-28-2022 Encounter for genera l adult medical examination without abnormal findings MARISSA BLACKWOOD [facility] Start: 07-28-2022 End: 07-28-2022 Patient encounter procedure Marissa Blackwood APRN.WORKFORCE ADVISOR Work Phone: [facility] Comment on above: Well adult exam ([facility] Dx); Intractable chronic cluster headache; Migraine without aura, intractable, without status migrainosus; Insomnia, unspecified type; Encounter for immunization; Chronic bilateral low back pain without sciatica; Chronic upper back pain; Neck pain; Screening for diabetes mellitus; Screening for lipid disorders Start: 07-28-2022 End: 07-28-2022 Patient encounter status Marissa Garcia Issa MAHER.WORKFORCE ADVISOR Work Phone: [facility] Start: 08-25-2021 AUDIT Luis Restrepo Work Phone: [facility] Work Phone: Start: 02-10-2021 Patient encounter procedure Luis Restrepo MD [facility] Work Phone: Start: 05-07-2020 Patient encounter procedure Luis Restrepo MD [facility] Work Phone: Start: 10-25-2018 End: 10-25-2018 Annotation/Addendum [facility] Start: 09-07-2017 End: 09-07-2017 Phone Encounter Cat [facility] Start: 09-07-2017 End: 09-07-2017 Patient encounter procedure [facility] Start: 07-13-2017 End: 07-13-2017 Phone Encounter [facility] Start: 07-09-2017 End: 07-09-2017 Office outpatient visit 15 minutes [facility] Start: 06-28-2017 End: 06-28-2017 Phone Encounter [facility] Start: 04-30-2017 End: 04-30-2017 Periodic preventive med est patient 18-39 yrs [facility] Start: 08-16-2016 End: 08-16-2016 Office outpatient visit 15 minutes [facility] Start: 05-01-2016 End: 05-01-2016 Periodic preventive med est patient 18-39 yrs [facility] Start: 04-26-2016 End: 04-26-2016 Phone Encounter [facility] Start: 04-21-2016 End: 04-21-2016 Office outpatient visit 15 minutes [facility] Start: 12-02-2015 End: 12-02-2015 Office outpatient visit 25 minutes [facility] Start: 11-03-2015 End: 11-04-2015 Phone Encounter [facility] Start: 11-03-2015 End: 11-03-2015 Patient encounter procedure [facility] Start: 10-11-2015 End: 10-11-2015 Office outpatient visit 15 minutes [facility] Start: 09-23-2015 End: 09-23-2015 Office outpatient visit 15 minutes Cat Gutierrez [facility] Start: 09-02-2015 End: 09-02-2015 Office outpatient visit 15 minutes Cat [facility] Start: 04-02-2015 End: 04-02-2015 Annotation/Addendum Cat [facility] Start: 03-29-2015 End: 03-29-2015 Historical Summary Cat Bello [facility] Start: 03-29-2015 End: 03-29-2015 Office outpatient visit 15 minutes Cat Gutierrez [facility] Start: 03-19-2015 End: 03-19-2015 Office outpatient visit 15 minutes Cat Gutierrez [facility] Start: 03-05-2015 End: 03-05-2015 Office outpatient visit 25 minutes Cat Gutierrez [facility] Start: 02-17-2015 End: 02-17-2015 Office outpatient visit 15 minutes Cat Gutierrez [facility] Start: 09-21-2014 End: 09-21-2014 Office outpatient visit 15 minutes Cat Gutierrez [facility] Start: 08-26-2014 End: 08-26-2014 Office outpatient visit 15 minutes Cat Gutierrez [facility] Start: 08-04-2014 End: 08-04-2014 Annotation/Addendum Cat Gutierrez [facility] Start: 08-04-2014 End: 08-04-2014 Office outpatient visit 25 minutes Cat [facility] Start: 07-28-2014 End: 07-28-2014 Patient encounter procedure Cat [facility] Start: 07-22-2014 End: 07-22-2014 Office outpatient visit 25 minutes Cat Gutierrez [facility] Start: 06-26-2014 End: 06-26-2014 Office outpatient visit 25 minutes Cat [facility] Start: 03-30-2014 End: 03-30-2014 Patient encounter procedure Cat [facility] Start: 03-24-2014 End: 03-24-2014 Patient encounter procedure Cat [facility] Procedures Date Procedure Procedure Detail Performing Clinician Start: 07-28-2022 Adult depression screening assessment Marissa Blackwood APRN.CNP Work Phone: Start: 02-10-2021 Follow-up visit Start: 12-17-2018 End: 12-17-2018 Pulmonary Visit Report Comments: See Note; NOTES: [facility] [address] [place] [address] OFFICE VISIT Date of Service: 12/17/18 MR#: [id number] Acct: [id number] Name: KAIA BARRERA Rep #: [id number] : 1995 Provider: Surya Osman MD Age/Sex: 23/F Location: [facility] [place].[facility] Status: Signed Assessment AND Plan Problems 1. Moderate persistent asthma without complication J45.40 2. Seasonal allergic rhinitis due to pollen J30.1 3. Adolescent idiopathic scoliosis of thoracic region M41.124 Plan Patient overall appears to be doing well on current therapy. However, patient is not really exerting herself the way she did at her baseline. Will bring patient back in 6 months to evaluate after spring allergy season and an opportunity to go outside to run. Patient will call with any issues. Refill Advair. Potentially try Dymista for seasonal allergies. Signs and symptoms of exacerbation and sick policy were reviewed in detail. Continue current therapy Medications Refilled: Plan Detail Follow Up 6 Months ([facility]) HPI 3 M FU: Chief Complaint: Sinus congestion Details: Patient is a 23-year-old female, currently under the care of Dr. Jacobsen, who presents for evaluation secondary to sinus congestion. Since last visit, patient denies any ER visits, hospitalizations or prednisone burst. Patient overall feels subjectively unchanged compared to previous. Patient reports that she has not been as active as she was during her last visit. Patient states the last time she had been running was in August. Patient states that she feels she is well controlled, but typically only had issues with running previously. Patient was transitioned from Brio to Advair therapy secondary to perceived noneffective. Patient has not been using Flonase, but in recollection does not know if it was significantly helpful. Patient states she does deal with postnasal drip, typically on a daily basis. Patient will cough up clear to white sputum and then be better throughout the day. Patient is denying any nocturnal cough. Patient does report that she can occasionally get heartburn while she is in the shower. This is improved with opening the shower door and completion of the shower. Patient estimates 10-15 minutes and there is complete resolution. Patient denies any problems with food. Patient states that she can occasionally get hives when she comes out of the shower, but this is not typical. HPI Comments Details: Intake Vital Signs12/17/18 Height 5 ft 4 in 12/17/18 Weight: 55.792 kg Intake Visit Reasons: 3 M FU Shelter Supervisor Required: No Accompanied by: Self Is patient in pain?: No Allergies azithromycin [From Zithromax Z-Tara] Allergy (Severe, Verified 12/17/18 06:34) unknown cephalexin monohydrate [From Keflex] Allergy (Verified 12/17/18 06:34) Upset Stomach gluten Allergy (Verified 12/17/18 06:34) Unknown sulfamethoxazole [From Bactrim] Allergy (Verified 12/17/18 06:34) Rash trimethoprim [From Bactrim] Allergy (Verified 12/17/18 06:34) Rash Medications lorazepam 0.5 mg tablet 0.5 mg PO QDAY PRN tab 11/21/17 [History Confirmed 12/17/18] albuterol sulfate HFA 90 mcg/actuation aerosol inhaler 2 puff INHALATION Q4H PRN #18 g 01/23/18 [Rx Confirmed 12/17/18] fluticasone 50 mcg/actuation nasal spray,suspension 2 spray INTRANASAL QDAY #1 device 04/17/18 [Rx Confirmed 12/17/18] verapamil ER 120 mg 24 hr capsule,extended release 120 mg PO DAILY 08/26/18 [History Confirmed 12/17/18] L norgest/E estradiol-E estrad 0.15 mg-30 mcg (84)/10 mcg(7) tabs,3mos 1 tab PO DAILY #84 tab 09/25/18 [Rx Confirmed 12/17/18] albuterol sulfate 2.5 mg/3 mL (0.083 %) solution for nebulization 2.5 mg INHALATION Q4H PRN #180 vial 12/03/18 [Rx Confirmed 12/17/18] fluticasone 500 mcg-salmeterol 50 mcg/dose blistr powdr for inhalation 1 inh INHALATION BID #60 ea 12/17/18 [Rx Confirmed 12/17/18] tramadol ER 100 mg tablet,extended release 24 hr 100 mg PO DAILY PRN 12/17/18 [History Confirmed 12/17/18] [facility] Medical History Allergic rhinitis (Chronic) Hypoglycemia (Acute) 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) Insomnia (Chronic) Sleep disorder (Chronic) Menstrual cramps (Acute) Anxiety attack (Chronic) Asthma (Suspected) Back spasm (Chronic) Back pain (Chronic) Scoliosis (Chronic) Abscess and cellulitis (Acute) Bronchitis (Resolved) Drug rash (Resolved) Syncope (Resolved) Social History adopted: No household members: spouse housing: house number of children: 0 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 pets and animals: Yes history of recent travel: No Smoking Status: Never smoker second hand exposure: No alcohol intake: current alcohol intake frequency: holidays/special occasions only substance use type: does not use seatbelt use: always do you feel safe at home: Yes additional social history: - James Review of Systems Const CONSTITUTIONAL: No anorexia, No body ache, No chills, No daytime sleepiness, No fever(s), No night sweats, No stops breathing during sleep, No weight loss, No weight gain, No sleeping in chair, Yes fatigue, No frequent colds, No seasonal allergies, No other, No orthopnea, No headache(s) EETM Ear Nose Throat Mouth: No hoarseness, No Dry mouth in morning, No change in vision, No itchy eyes, No eye pain, No Swallowing Difficulty, No ear pain, No nose bleed, No mouth pain, Yes nasal congestion, No nasal discharge, No sinus pain, No sinus pressure, No sore throat, No other, No headache(s) Cardio Cadriovascular: No chest pain, No chest pain at rest, No chest pain with activity, No irregular heart rhythm, No palpitations, No other, No shortness of breath when lying down Resp Respiratory: Yes as per HPI, No shortness of breath at rest, No pain with cough, No chest congestion, Yes cough, No chest tightness, No pain on inspiration, Yes Inhalers, No Increase use of Rescue Inhalers, No snoring, No apnea, No other Gastro Gastrointestional: Negative bloody stools, change in appetite, difficulty swallowing, reflux, hematemesis, melena stool, loose stool, constipation or other Genitourinary: Negative blood in urine, nocturia, pain with urination or other Musc Musculoskeletal: Negative body pain, back pain, neck pain or other Skin/Breast Skin/Breast: No dry skin, No itching, No unusual bruising, No breast lump, No other Neuro Neurological: Negative restless legs, confusion, weakness or other Psych Psychocological: Negative abnormal sleep pattern, anxiety, thoughts of hurting self/others, hopelessness or other Lymph Lymphatic: No easy bleeding, No easy bruising, No other Exam Const Constitutional: Positive cooperative, in no acute respiratory distress, healthy appearing, well developed, well nourished, good hygiene and conversant Head Head: Yes normocephalic, Yes atraumatic Eyes Eye: Positive clear conjunctiva; negative scleral abnormality or nystagmus Ears Ear: Positive hearing normal and external ears normal; negative hard of hearing Nose Nose: Yes external nose normal, No nasal polyp, Yes septum normal Mouth Mouth: Positive oral mucosae normal, no lesions, good dentition and posterior oropharynx is adequate; negative post nasal drip, malodorous breath or oral thrush present Mallampati Score: I: Mallampati Score Neck Neck: Positive normal visual inspection, full ROM and trachea midline; negative lymphadenopathy or JVD Chest Wall Chest: Positive normal inspection of the chest and symmetric chest movement; negative crepitus or increased A/P diameter Resp lung sounds: Positive clear to auscultation, good air exchange, normal expiratory time and normal respiratory effort; negative wheezes, wheeze present on forced exhalation, rhonchi, rales or dullness to percussion Cardio Cardiac: Positive regular rate, regular rhythm, S1 normal and normal PMI; negative murmur, S2 normal (Pronounced P2), rub or gallop GI GI: Positive normal to inspection and normal bowel sounds; negative distended, epigastric tenderness, hepatomegaly or splenomegaly Genitourinary: Positive deferred Musc Musculoskeletal: Positive steady gait and ROM normal; negative using an assistive device for ambulation, kyphosis, scoliosis or rheumatoid nodules Skin Pulmonary Skin Exam: Positive intact; negative rash, lesion, ulcers, erythema, dermal atrophy or scaly Pulses Pulse: Yes radial pulses present Extremities Extremities: Yes capillary refill normal, No clubbing, No cyanosis, No edema, No stasis dermatitis Neuro Neurologic: Yes no focal neuro deficits, Yes normal concentration, Yes understands questions, Yes cooperative, Yes normal cognition, Yes normal coordination, Yes conversant Lymph Lymphatic: No lymphadenopathy Psych Appearance: Positive grossly normal Mental Status: Positive mental status grossly normal Mood: Positive congruent mood Affect: Positive normal affect Coding Level of Care Code Off vis,est,level 3 Diagnoses Moderate persistent asthma without complication J45.40 Asthma severity: moderate Asthma persistence: persistent Asthma complication type: uncomplicated Seasonal allergic rhinitis due to pollen J30.1 Allergic rhinitis trigger: pollen Allergic rhinitis seasonality: seasonal Adolescent idiopathic scoliosis of thoracic region M41.124 Scoliosis type: idiopathic Idiopathic scoliosis type: adolescent Spinal region: thoracic 12/17/18 0710 <Electronically signed by Surya Osman MD> Date Surya Osman MD Cosigner Signature: Date (if applicable) CC: Cat Weston Start: 08-26-2018 End: 08-27-2018 [employer] Office Visit Report Comments: See Note; NOTES: [facility] [address] [place] [address] OFFICE VISIT Date of Service: 08/26/18 MR#: [id number] Acct: [id number] Name: KAIA BARRERA Cristopher Rep #: [id number] : 1995 Provider: YADIRA Willard Age/Sex: 23/F Location[place] [facility] [place] Status: Signed Intake Vital Signs08/26/18 Height 5 ft 4 in 08/26/18 Weight: 127 lb 08/26/18 Body Mass Index (BMI) 21.8 08/26/18 Blood Pressure 100/60 Intake Visit Reasons: burning with intercourse Shelter Supervisor Required: No Is patient in pain?: No Allergies azithromycin [From Zithromax Z-Tara] Allergy (Severe, Verified 08/26/18 15:54) unknown cephalexin monohydrate [From Keflex] Allergy (Verified 08/26/18 15:54) Upset Stomach gluten Allergy (Verified 08/26/18 15:54) Unknown sulfamethoxazole [From Bactrim] Allergy (Verified 08/26/18 15:54) Rash trimethoprim [From Bactrim] Allergy (Verified 08/26/18 15:54) Rash Medications l-Norgest/E.estradiol-E.es trad [Seasonique 0.15-0.03-0.01 Tab] 1 ea PO DAILY 09/06/13 [History Confirmed 08/26/18] albuterol sulfate 2.5 mg/3 mL (0.083 %) solution for nebulization 2.5 mg INHALATION Q4H PRN ml 11/21/17 [History Confirmed 08/26/18] ggfmtmckqx-xwqdywjczyemh-h affeine 50 mg-300 mg-40 mg capsule 1 cap PO ONCE PRN 11/21/17 [History Confirmed 08/26/18] lorazepam 0.5 mg tablet 0.5 mg PO QDAY PRN tab 11/21/17 [History Confirmed 08/26/18] albuterol sulfate HFA 90 mcg/actuation aerosol inhaler 2 puff INHALATION Q4H PRN #18 g 01/23/18 [Rx Confirmed 08/26/18] fluticasone 200 mcg-vilanterol 25 mcg/dose powder for inhalation 1 inh INHALATION Q24H #60 ea 03/01/18 [Rx Confirmed 08/26/18] fluticasone 500 mcg-salmeterol 50 mcg/dose blistr powdr for inhalation 1 inh INHALATION BID #60 ea 03/25/18 [Rx Confirmed 08/26/18] fluticasone 50 mcg/actuation nasal spray,suspension 2 spray INTRANASAL QDAY #1 device 04/17/18 [Rx Confirmed 08/26/18] tramadol ER 100 mg tablet,extended release 24 hr 100 mg PO DAILY 08/26/18 [History Confirmed 08/26/18] verapamil ER 120 mg 24 hr capsule,extended release 120 mg PO DAILY 08/26/18 [History Confirmed 08/26/18] Is last menstrual period known: Yes Last Menstral Period: 06/19/18 Post menopausal: No Patient : No : No PFSH Medical History Allergic rhinitis (Chronic) Hypoglycemia (Acute) 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) Insomnia (Chronic) Sleep disorder (Chronic) Menstrual cramps (Acute) Anxiety attack (Chronic) Asthma (Suspected) Back spasm (Chronic) Back pain (Chronic) Scoliosis (Chronic) Abscess and cellulitis (Acute) Bronchitis (Resolved) Drug rash (Resolved) Syncope (Resolved) Social History adopted: No household members: spouse housing: house number of children: 0 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 She was 2 weeks ago and declines STD concerns. She is overdue for pap. States saw PCP and was told last pap was negative with positive HPV and sent to Dr. Silva Lord and told not a concern at her age. Last pap was May 2017. Female Reproductive History Last Menstral Period: 06/19/18 Pregancy History 0 Elective abortions Hx Para Spontaneous abortions Exam General: bladder normal to palpation External Female Exam: normal external appearance, normal appearance of the urethra Urethra: normal appearance of the urethra Speculum Exam - Vagina: normal appearance of the vagina, normal vaginal discharge, nontender, no lesions Speculum Exam - Cervix: normal appearance of the cervix (everted. Nonfriable. [facility], comp vag culture and pap), other (smooth, nonfriable) Bimanual Exam- Vagina AND Uterus: bladder normal to palpation, normal bimanual exam, uterine size normal, uterine shape normal, uterine mobility normal, uterus non-tender Bimanual Exam- Adnexa, other: normal adnexae, no adnexal masses, adnexae non-tender Assessment AND Plan Problems 1. Vaginitis and vulvovaginitis N76.0 2. History of human papillomavirus infection Z86.19 Plan [facility]-call only if positive Comp vaginal culture-call results thin prep pap with reflex HPV-discussed pap screening and management per age and results. Would not have recommended colposcopy for negative pap and positive HPV at her age unless showed change on pap. RTO annual exams, prn Medications New: Coding Level of Care Code Off vis,new,level 3 Diagnoses Vaginitis and vulvovaginitis N76.0 History of human papillomavirus infection Z86.19 08/26/18 1626 <Electronically signed by Christen MCRAE> Date Christen MCRAE Cosigner Signature: Date (if applicable) CC: Cat Gutierrez Start: 03-01-2018 End: 03-01-2018 Pulmonary Visit Report Comments: See Note; NOTES: Pulmonary Medicine [address] [place] [address] OFFICE VISIT Date of Service: 03/01/18 MR#: [id number] Acct: [id number] Name: KAIA JUSTIN Rep #: [id number] : 1995 Provider: Surya Osman MD Age/Sex: 23/F Location: [facility] [place].[facility] Status: Signed Assessment AND Plan 1. Moderate persistent asthma without complication J45.40 Plan Patient with fully reversible small airways obstruction on previous PFT. Patient is currently on maximum dose combination inhalers and is still reporting significant decline in exercise tolerance. Patient does suffer from seasonal allergies and has had some sinus congestion. Will order an IgE level and CBC for evaluation. CBC will allow for evaluation of anemia and eosinophil count. Patient will continue on current medications. Continue Breo 200/25. Initiate Flonase therapy Medications New: fluticasone-vilanterol 200-25 mcg/dose (Breo Ellipt1 inh Inhalation Q24H Surya Osman MD a) 2. Seasonal allergic rhinitis due to pollen J30.1 Plan Patient does give a history of sinus congestion year round with exacerbations in the spring and fall. Clinical suspicion for allergic rhinitis secondary to pollen. This may be leading to uncontrolled asthma. Will initiate patient on nasal steroids. Hold on ENT evaluation for now Initiate Flonase therapy Orders Orders: 3. Dyspnea on exertion R06.09 Plan Patient has expressed inability to run approximately 3 miles. However, patient has had a significant decline in exercise tolerance since October 2017. Patient is on significant therapy for asthma. Some concern for possible secondary diagnosis. Patient does have a pronounced P2 on physical exam, so will obtain an echocardiogram for evaluation of valvular function. Obtain echocardiogram Orders Orders: Plan Detail Other Medications New: fluticasone 50 mcg/actuation (Flonase Aller2 sprays Intranasal QDAY J30.9 Surya Osman MD gy Relief) administer into each nostril Discontinued: fluticasone-vilanterol 100-25 mcg/dose (Breo Ellipt1 inh Inhalation Q24H Emma johnson) after inhalation, rinse mouth with water and spit out; do not swallow Discontinued Reason: O rder Changed HPI 3 M FU: Chief Complaint: Shortness of breath on exertion Details: Patient is a 23-year-old female, currently in the care of Dr. Gutierrez, who presents for follow-up secondary to shortness of breath on exertion. Since last visit, patient denies any ER visits, hospitalizations or prednisone burst. Patient was having difficulty with continued shortness of breath despite the initiation of Brio 100, so patient was increased to Brio 200/25. Patient states that she is currently using albuterol before and during her run. Patient states she used to run 9 miles at approximately 10-1/2 min/mi in October. However, patient states she recently was only able to run 3 miles at 12 minutes. Patient does state that she has been running on a weekly basis and is unclear if this is truly secondary to deconditioning. Patient states she does use her albuterol approximately 10 minutes before her run with no significant change. Patient states she can develop chest pain after 3-5 minutes of exercise and this will persist throughout her exercise routine. This typically will resolve 15-20 minutes after exercising. Patient describes the chest pain as a tightness without radiation. This is not associated with syncope, palpitations or unexpected diaphoresis. Patient has noted some nasal congestion over the winter. Patient states this will typically get worse in the spring and fall. Patient typically treats it with Zyrtec with marginal response. However, this has not limited her ability to exercise previously. 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01 Tab] 1 ea PO DAILY 09/06/13 [History Confirmed 03/01/18] albuterol sulfate 2.5 mg/3 mL (0.083 %) solution for nebulization 2.5 mg INHALATION Q4H PRN ml 11/21/17 [History Confirmed 03/01/18] ocjwimddrv-kmnutadevjfvc-p affeine 50 mg-300 mg-40 mg capsule 1 cap PO ONCE PRN 11/21/17 [History Confirmed 03/01/18] lorazepam 0.5 mg tablet 0.5 mg PO QDAY PRN tab 11/21/17 [History Confirmed 03/01/18] topiramate 50 mg tablet 50 mg PO BID 11/21/17 [History Confirmed 03/01/18] albuterol sulfate HFA 90 mcg/actuation aerosol inhaler 2 puff INHALATION Q4H PRN #18 g 01/23/18 [Rx Confirmed 03/01/18] fluticasone 200 mcg-vilanterol 25 mcg/dose powder for inhalation 1 inh INHALATION Q24H #60 ea 03/01/18 [Rx Confirmed 03/01/18] fluticasone 50 mcg/actuation nasal spray,suspension 2 spray INTRANASAL QDAY #16 g 03/01/18 [Rx Confirmed 03/01/18] [facility] Medical History Allergic rhinitis (Chronic) Hypoglycemia (Acute) 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) Insomnia (Chronic) Sleep disorder (Chronic) Menstrual cramps (Acute) Anxiety attack (Chronic) Asthma (Suspected) Back spasm (Chronic) Back pain (Chronic) Scoliosis (Chronic) Abscess and cellulitis (Acute) Bronchitis (Resolved) Drug rash (Resolved) Syncope (Resolved) Social History Smoking Status: Never smoker second hand exposure: No alcohol intake: current alcohol intake frequency: holidays/special occasions only substance use type: does not use Review of Systems Const CONSTITUTIONAL: Negative anorexia, body ache, chills, daytime sleepiness, fever(s), night sweats, oral thrush, stops breathing during sleep, weight loss, sleeping in chair, fatigue, weight loss, weight gain, frequent colds, seasonal allergies, other, orthopnea or headache(s) EETM Ear Nose Throat Mouth: Positive hearing normal and nasal discharge; negative hard of hearing, hoarseness, dry mouth in morning, change in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 exercise program after 1 physical therapy visit in order to decrease her pain. PLAN: Plan of care for this patient as follows: I will establish this patient a home exercise program consisting of repetition extension lying, lumbar spine stabilization exercises, postural education. I plan on treating this patient 1 time a week for 1-2 weeks. Rodolfo Salinas, PT T: NTS JOB: [id number] <Electronically signed by Rodolfo Salinas > 07/31/14 1027 CC: Signed For Medicare only, by signing this I certify the plan of care. __ Physicians Signature Date Cat Gutierrez Start: 07-28-2014 End: 07-28-2014 L/S Spine Min 4 Views Comments: See Note; NOTES: [facility] Imaging Services [address] [place] [address] Radiology Report MR#: [id number] Acct: [id number] Name: KAIA JUSTIN Rep #: [id number] : 1995 F 19 From: Julio Evans DO PCP: Cat Gutierrez DO Status: REG CLI Study: L/S Spine Min 4 Views Date of Exam: 07/28/14 Exam# [id number] Ordering Dr: Amber Mckenna STUDY: X-RAY - LUMBAR SPINE REASON FOR EXAM: Female, 19 years old. Back pain TECHNIQUE: 5 view(s) of the lumbar spine were obtained. COMPARISON: None FINDINGS: Normal lumbar lordosis. There is no substantial scoliosis. There is a normal alignment of the vertebrae. Normal vertebral bodies and endplates. Normal disc space heights. The soft tissue structures are unremarkable. Mild small bowel ileus. IMPRESSION: Normal x-ray examination of the lumbar spine. Electronically Signed: Julio Evans DO at 19:59 EDT Tel [phone], Service support [phone], CC: Amber Mckenna; Cat Gutierrez DO Clerical Specialist: Signed Amber Mckenna Work Phone: Start: 06-30-2014 End: 06-30-2014 Gallbladder Comments: See Note; NOTES: [facility] Imaging Services [address] [place] [address] Ultrasound Report MR#: [id number] Acct: [id number] Name: KAIA JUSTIN Rep #: [id number] : 1995 F 19 From: Amari Ochoa MD PCP: Cat Gutierrez DO Status: REG CLI Study: Gallbladder Date of Exam: 06/30/14 Exam# [id number] Ordering Dr: Cat Gutierrez DO STUDY: ABDOMINAL ULTRASOUND - RIGHT UPPER QUADRANT REASON FOR VISIT: Female, 19 years old. Nausea. TECHNIQUE: Ultrasound evaluation of the right upper quadrant was performed with real-time and static varghese-scale imaging. TECHNICAL QUALITY: Adequate. COMPARISON: None. FINDINGS: Liver: The liver measures 13.6 cm. There is normal echogenicity of the liver. The bile ducts are within normal limits. There is hepatic color flow. The direction of portal flow is hepatopetal. There is no demonstrated mass lesion. Gallbladder: Normal distended gallbladder. The gallbladder wall measures 2.4 mm. There is a negative sonographic Duenas's sign. There is no pericholecystic fluid. There are no gallstones. Common Bile Duct (C.B.D.): The common bile duct measures 3.6 mm. Pancreas: Normal size of the head, body and tail of the pancreas. There is normal echogenicity of the pancreas. There is no demonstrated pancreatic mass or cyst. Right Kidney: Normal size of the right kidney. The right kidney measures 11.7 cm x 5.0 cm x 5.8 cm. Normal renal cortex. The right cortex measures 1.6 cm. There is no demonstrated renal mass or cyst. There is no right hydronephrosis. IMPRESSION: Normal right upper quadrant ultrasound examination. Electronically Signed: Amari Ochoa MD at 9:18 EDT Tel [phone], Service support [phone], CC: Cat Gutierrez DO Clerical Specialist: Signed Cat Gutierrez Work Phone: History of No histor y of surgery Luis Restrepo No history of surgery Eliseo Restrepo Work Phone: Plan of Treatment Date Care Activity Detail Author Start: 07-28-2032 Urine microalbumin profile DTAP,TDAP,TD (2 - Td or Tdap) [facility] Start: 08-28-2023 ANNUAL PCP TEAM CHRONIC DISEASE VISIT ANNUAL PCP TEAM CHRONIC DISEASE VISIT [facility] Start: 07-28-2023 Adult depression screening assessment DEPRESSION SCREENING [facility] Start: 07-28-2023 ANNUAL PCP TEAM CHRONIC DISEASE VISIT ANNUAL PCP TEAM CHRONIC DISEASE VISIT [facility] Start: 07-28-2023 PAP TESTING PAP TESTING [facility] Comment on above: Postponed from 02/20 (Declined at this time) Start: 07-20-2023 Influenza vaccination INFLUENZ A (Season Ended) [facility] Start: 05-18-2023 Influenza vaccination INFLUENZA (#1) [facility] Comment on above: Postponed from 07/20 (Declined at this time) Start: 11-28-2022 COVID-19 VACCINE (#1) COVID-19 VACCI NE (#1) [facility] Comment on above: Postponed from 08/22 (Declined at this time) Start: 11-19-2022 DEPRESSION ASSESSMENT DEPRESSION ASS ESSMENT [facility] Start: 10-09-2022 End: 12-09-2022 CBC panel - Blood by Automated count CBC Lab Routine Iron deficiency anemia, unspecified iron deficiency anemia type Expected: 10/09/2022, Expires: 12/09/2022 [facility] Work Phone: Comment on above: Expected: 10/09/2022 , Expires: 12/09/2022 Start: 10-09-2022 End: 12-09-2022 Cobalamin (Vitamin B12) [Mass/volume] in Serum or Plasma VITAMIN B12 BLOOD Lab Routine Iron deficiency anemia, unspecified iron deficiency anemia type Expected: 10/09/2022, Expires: 12/09/2022 [facility] Work Phone: Comment on above: Expected: 10/09/2022 , Expires: 12/09/2022 Start: 10-09-2022 End: 12-09-2022 Ferritin [Mass/volume] in Serum or Plasma FERRITIN BLD Lab Routine Iron deficiency anemia, unspecified iron deficiency anemia type Expected: 10/09/2022, Expires: 12/09/2022 [facility] Work Phone: Comment on above: Expected: 10/09/2022 , Expires: 12/09/2022 Start: 10-09-2022 End: 12-09-2022 Folate [Mass/volume] in Serum or Plasma FOLATE SERUM Lab Routine Iron deficiency anemia, unspecified iron deficiency anemia type Expected: 10/09/2022, Expires: 12/09/2022 [facility] Work Phone: Comment on above: Expected: 10/09/2022 , Expires: 12/09/2022 Start: 10-09-2022 End: 12-09-2022 Iron and Iron binding capacity panel - Serum or Plasma IRON + TIBC Lab Routine Iron deficiency anemia, unspecified iron deficiency anemia type Expected: 10/09/2022, Expires: 12/09/2022 [facility] Work Phone: Comment on above: Expected: 10/09/2022 , Expires: 12/09/2022 Start: 10-09-2022 End: 12-09-2022 Phosphate [Mass/volume] in Serum or Plasma PHOSPHORUS INORGANIC Lab Routine Iron deficiency anemia, unspecified iron deficiency anemia type Expected: 10/09/2022, Expires: 12/09/2022 [facility] Work Phone: Comment on above: Expected: 10/09/2022 , Expires: 12/09/2022 Start: 11-19-2021 DEPRESSION ASSESSMENT DEPRESSION ASS ESSMENT [facility] Start: 02-11-2021 Holter Monitor 3-14 Days Holter Monitor 3-14 Days [facility] Work Phone: Start: 07-09-2017 Procedure Education Eprescribe d prescriptions (G8553) [facility] Work Phone: Start: 07-09-2017 Provider Instruction s for Treatment Reviewed Wood Room Supervisor Letter [facility] Work Phone: Start: 04-30-2017 Cytp cerv/vag auto thin layer prep mnl screen Thin prep Pap (37654) (no STD testing) [facility] Work Phone: Start: 04-30-2017 Provider Instruction s for Treatment [facility] Work Phone: Start: 08-16-2016 Provider Instruction s for Treatment [facility] Work Phone: Start: 05-01-2016 Cytp cerv/vag auto thin layer prep mnl screen Thin prep Pap (36848) (no STD testing) [facility] Work Phone: Start: 05-01-2016 Provider Instruction s for Treatment [facility] Work Phone: Start: 04-21-2016 Procedure Education Eprescribe d prescriptions (G8553) [facility] Work Phone: Start: 11-03-2015 Patient Education Cough Medici saundra, Nonprescription: cough [facility] Work Phone: Start: 11-03-2015 Provider Instruction s for Treatment [facility] Work Phone: Start: 11-03-2015 Bacteria identified Respiratory culture Nom (Sput) Sputum Culture (35516) [facility] Work Phone: Start: 09-23-2015 Provider Instruction s for Treatment Follow up - Make appt after diagnostic tests [facility] Work Phone: Start: 09-02-2015 Procedure Education Eprescribe d prescriptions (G8553) [facility] Work Phone: Start: 03-29-2015 Procedure Education Eprescribe d prescriptions (G8553) [facility] Work Phone: Start: 03-29-2015 Cul bact xcpt urine blood/stool aerobic isol Anaerobic & Aerobic Culture (36096) [facility] Work Phone: Start: 03-29-2015 Cul bact xcpt urine blood/stool aerobic isol CARSON CULTURE-OTHER (10655) [facility] Work Phone: Start: 03-19-2015 Patient Education Asthma: breathing [facility] Work Phone: Start: 03-05-2015 Provider Instruction s for Treatment [facility] Work Phone: Start: 02-17-2015 Provider Instruction s for Treatment [facility] Work Phone: Start: 09-21-2014 Provider Instruction s for Treatment [facility] Work Phone: Start: 08-04-2014 Provider Instruction s for Treatment Follow up in 2 weeks [facility] Work Phone: Start: 07-22-2014 Provider Instruction s for Treatment [facility] Work Phone: Start: 06-26-2014 Procedure Education Eprescribe d prescriptions (G8553) [facility] Work Phone: Start: 06-26-2014 Provider Instruction s for Treatment Follow up - Make appt after diagnostic tests [facility] Work Phone: Start: 03-30-2014 Provider Instruction s for Treatment [facility] Work Phone: Start: 03-30-2014 Cytp cerv/vag auto thin layer prep mnl screen Thin prep Pap (12357) (no STD testing) [facility] Work Phone: Start: 03-24-2014 Provider Instruction s for Treatment *Trigger Point Injections-- bicep tendon [facility] Work Phone: Start: 02-21-2012 HEPATITIS C SCREENING HEPATITIS C SC VICTOR HUGO [facility] Start: 02-21-2012 HIV SCREENING HIV SCREENING [facility] Start: 02-21-2000 PNEUMOCOCCAL (1 - PCV) PNEUMOCOCCAL (1 - PCV) [facility] Start: 1995 COVID-19 VACCINE (#1) COVID-19 VACCI NE (#1) [facility] Start: 1995 HEPATITIS B (1 of 3 - 3-dose series) HEPATITIS B (1 of 3 - 3-dose series) [facility] Im adm prq id subq/i m njxs 1 vaccine IMADM PRQ ID SUBQ/IM NJXS 1 VACC Immunization/Injection Routine Encounter for immunization Ordered: 07/28/2022 [facility] Work Phone: Comment on above: Ordered: 07/28/2022 End: 08-27-2023 Radex spine cervical 4 or 5 views XR CERV OTHER 4V AP/LAT/OBL Radiology Routine Neck pain 1 Occurrences starting 07/28/2022 until 08/27/2023 [facility] Work Phone: Comment on above: 1 Occurrences starti ng 07/28/2022 until 08/27/2023 End: 08-27-2023 Radex spine lumbosacral minimum 4 views XR LUMBAR PARS DEFECT 4V AP/LAT/BOTH OBL Radiology Routine Chronic bilateral low back pain without sciatica 1 Occurrences starting 07/28/2022 until 08/27/2023 [facility] Work Phone: Comment on above: 1 Occurrences starti ng 07/28/2022 until 08/27/2023 End: 08-27-2023 Radex spine thoracic 3 views XR THORACIC GENERAL 3V AP/LAT/SWIMMERS Radiology Routine Chronic upper back pain 1 Occurrences starting 07/28/2022 until 08/27/2023 [facility] Work Phone: Comment on above: 1 Occurrences starti ng 07/28/2022 until 08/27/2023 [facility] Work Phone: [facility] Work Phone: [facility] Work Phone: [facility] Work Phone: [facility] Work Phone: [facility] Work Phone: [facility] Work Phone: [facility] Work Phone: [facility] Work Phone[facility] Work Phone: [facility] Work Phone: [facility] Immunizations Immunization Date Immunization Notes Care Provider Fa [facility] 07-28-2022 tetanus toxoid, redu daniel diphtheria toxoid, and acellular pertussis vaccine, adsorbed Marissa Blackwood APRN.WORKFORCE ADVISOR Work Phone: [facility] 09-03-2013 influenza, seasonal, injectable, preservative free Marissa Issa MAHER.WORKFORCE ADVISOR Work Phone: [facility] Payers Date Payer Category Payer Self-pay 2022 Unknown [id number] 2019 Unknown 2019 Unknown [id number] 1995 Unknown [id number] Unknown [id number] Social History Date Type Detail Facility Alcohol Use: Current some day smoker [facility] Work Phone: Caffeine Use [facility] Work Phone: Exercise History: Exercises regularly. [facility] Work Phone: Living Situation: Lives with parents. [facility] Work Phone: Pets/Animals: Dog. Cat. [facility] Work Phone: Tobacco use: Current some day smoker. [facility] Work Phone: Comment on above: uses the E cigg Start: 09-23-2021 Tobacco smoking status NHIS Never smoked tobacco [facility] Start: 09-23-2021 Tobacco use and exposure Smokeless tobacco non-user [facility] Start: 07-28-2022 End: 09-02-2022 Alcohol intake Ex-drinker (finding) [facility] Start: 1995 Sex Assigned At Not on file [facility] Start: 07-18-2022 End: 08-28-2022 Exposure to SARS-CoV-2 (event) Not sure [facility] Tobacco smoking status No Smoking Status Entered [facility] Sex Assigned At Female [facility] NEGATED: Highlighted row - - [facility] Work Phone: Functional Status Date Assessment Result Facility 12-22-2022 Functional Status Independent [facility] 12-22-2022 Functional Status Standard Safet y ID band on, Call device within reach, Bed in low position, Wheels locked, Upper/Half-Length side-rails up, Bedside Cart Locked, Safety level maintained [facility] NEGATED: Highlighted row Functional performance Functional status health issues are not documented [facility] Work Phone: Mental Status Date Assessment Result Facility 12-22-2022 Mental Status Orientation Orie nted x 4 [facility] 12-22-2022 Mental Status [facility] NEGATED: Highlighted row Cognitive function [Interpretation] Cognitive status health issues are not documented [facility] Work Phone: Clinical Notes 05-16-2021 to 01-18-2023 Telephone Encounter - Pma Cortez MA - 01/18/2023 7:56 AM ESTTelephone Encounter - Amber Jovel MA - 01/15/2023 8:00 AM Adi Jovel MA - 12/25/2022 11:47 AM EST Note Date & Type Note Facility 01-18-2023 Miscellaneous Notes Pharmacy requesting refills as follows: Last Office Visit 08/28/22. Last Refill 01/15/23. Pharmacy needs clarification and new script Requested Prescriptions Pending Prescriptions Disp Refills acetaminophen 325 mg-caffeine 40 mg-butalbital 50 mg (FIORICET) per capsule 45 capsule 3 Sig: Take 1 capsule by mouth every 4 hours as needed. Please review and advise. Pam Cortez MA documented in this encounter [facility] 01-15-2023 Miscellaneous Notes Pharmacy requesting refills: Last office visit 08/28/2022. Last refill 09/23/2021 nov none Requested Prescriptions Pending Prescriptions Disp Refills acetaminophen 325 mg-caffeine 40 mg-butalbital 50 mg (FIORICET) per capsule Sig: Take 1 capsule by mouth every 4 hours as needed. Please review and advise. Amber Jovel MA documented in this encounter [facility] 12-25-2022 Note Patient Outreach (AG FAMPLE) KAIA BARRERA ([id number]) 1995 F Date Time Provider Department 12/25/22 AMBER JOVEL During your visit today, we recorded the following information about you: Amber Jovel MA 12/25/2022 11:50 AM Signed ED Follow Up: Patient discharged from [facility] ED on 12/22/2022. 1. How are you feeling since your ED visit? na Have your symptoms improved or resolved? Not applicable 2. Were you prescribed any medications while in the ED or advised to stop any medication? Not applicable - If yes, were you able to fill your prescriptions? Not applicable -if stopped medication, what was the medication? na 3. Were you advised to schedule a follow up appointment with your provider? Not applicable - If no, Do you feel like you need an appointment scheduled? Not applicable - If yes, Do you need this scheduled now or has this already been scheduled? Not applicable 4. Were you able to contact the office or special distribution clerk provider prior to your ED visit? Not applicable 5. Is there anything else I can do for you today? Not applicable Tried contacting patient several times. VM full. Amber Jovel MA Allergies As of Date: 12/25/2022 Noted Allergy Reaction AZITHROMYCIN 10/07/2019 6 - Diarrhea 14 - Other: See Comments CEPHALEXIN 10/07/2019 8 - GI Upset 11 - Vomiting GLUTEN 10/07/2019 16 - Unknown PENICILLINS 07/28/2022 6 - Diarrhea SULFAMETHOXAZOLE 10/07/2019 2 - Rash SULFAMETHOXAZOLE-TRIMETHOPRIM 07/28/2022 2 - Rash 11 - Vomiting TRIMETHOPRIM 10/07/2019 2 - Rash Date Reviewed: 09/02/2022 Reviewed by: Marissa Blackwood APRN.WORKFORCE ADVISOR - Fully Assessed Reason for Visit: ed outreach [Other] Cmt: Ed outreach Prescriptions as of 12/25/2022 - ferrous sulfate 325 mg (65 mg iron) tablet Take 325 mg by mouth twice daily with meals. - esomeprazole (NEXIUM) 20 mg capsule Take 1 capsule by mouth once daily. ONE HOUR BEFORE EATING. - tiZANidine (ZANAFLEX) 4 mg tablet TAKE 1 TABLET BY MOUTH TWICE A DAY NEEDED - verapamil SR (CALAN SR, ISOPTIN SR) 180 mg CR tablet Take 1 tablet by mouth once daily. - traZODone HCl (DESYREL) 300 mg tablet Take 1 tablet by mouth daily at bedtime. - naproxen (NAPROSYN) 500 mg tablet Take 1 tablet by mouth twice daily as needed for pain (FOR PAIN - TAKE WITH FOOD.). - acetaminophen 325 mg-caffeine 40 mg-butalbital 50 mg (FIORICET) per capsule Take 1 capsule by mouth every 4 hours as needed. - NORGESTIMATE-ETHINYL ESTRADIOL 0.18/0.215/0.25 MG-35 MCG,21, TAB Norgestimate-Ethinyl Estradiol Active 1 TAB daily 84 October 07, 2019 3:52pm - PROAIR HFA 90 mcg/actuation inhaler - spironolactone (ALDACTONE) 100 mg tablet - traMADol (ULTRAM) 50 mg tablet Take 50 mg by mouth every 6 hours as needed for pain. 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 Author Type: Artificial Log Machine Operator Type: Progress Notes Filed: 12/25/2022 11:50 AM Note Text: ED Follow Up: Patient discharged from [facility] ED on 12/22/2022. 1. How are you feeling since your ED visit? na Have your symptoms improved or resolved? Not applicable 2. Were you prescribed any medications while in the ED or advised to stop any medication? Not applicable - If yes, were you able to fill your prescriptions? Not applicable -if stopped medication, what was the medication? na 3. Were you advised to schedule a follow up appointment with your provider? Not applicable - If no, Do you feel like you need an appointment scheduled? Not applicable - If yes, Do you need this scheduled now or has this already been scheduled? Not applicable 4. Were you able to contact the office or special distribution clerk provider prior to your ED visit? Not applicable 5. Is there anything else I can do for you today? Not applicable Tried contacting patient several times. VM full. Amber Jovel MA [facility] 12-25-2022 History of Presen t illness Narrative ED Follow Up: Patient discharged from [facility] ED on 12/22/2022. 1. How are you feeling since your ED visit? na Have your symptoms improved or resolved? Not applicable 2. Were you prescribed any medications while in the ED or advised to stop any medication? Not applicable - If yes, were you able to fill your prescriptions? Not applicable -if stopped medication, what was the medication? na 3. Were you advised to schedule a follow up appointment with your provider? Not applicable - If no, Do you feel like you need an appointment scheduled? Not applicable - If yes, Do you need this scheduled now or has this already been scheduled? Not applicable 4. Were you able to contact the office or special distribution clerk provider prior to your ED visit? Not applicable 5. Is there anything else I can do for you today? Not applicable Tried contacting patient several times. VM full. Amber Jovel MA documented in this encounter [facility] 12-22-2022 Hospital Discharg e instructions Patient Education 12/22/2022 17:21:00 Neck Pain Neck Pain There are several possible causes of neck pain when there is no injury: You can get a minor ligament sprain or muscle strain from a sudden minor neck movement. Sleeping with your neck in an awkward position can also cause this. Some people respond to emotional stress by tensing the muscles of their neck, shoulders, and upper back. Chronic spasm in these muscles can cause neck pain and sometimes headaches. Gradual wear and tear of the joints in the spine can cause degenerative arthritis. This can be a source of occasional or chronic neck pain. The spinal disks may bulge and put pressure on a nearby spinal nerve. This can happen as a natural result of aging or repeated small injuries to the neck. The spinal disks are the cushions between each spinal bone. This causes tingling, pain, or numbness that spreads from the neck to the shoulder, arm, or hand on one side. Acute neck pain usually gets better in 1 to 2 weeks. Neck pain related to disk disease, arthritis in the spinal joints, or spinal stenosis can become chronic and last for months or years. Spinal stenosis is narrowing of the spinal canal. X-rays are usually not ordered for the initial evaluation of neck pain. However, X-rays may be done if you had a forceful physical injury, such as a car accident or fall. If pain continues and doesn t respond to medical treatment, X-rays and other tests may be done at a later time. Home care Rest and relax the muscles. Use a comfortable pillow that supports the head. It should also help keep the spine in a neutral position. The position of the head should not be tilted forward or backward. A rolled up towel may help for a custom fit. Some people find relief with heat. Heat can be applied with either a warm shower or bath or a moist towel heated in the microwave and massage. Others prefer cold packs. You can make an ice pack by filling a plastic bag that seals at the top with ice cubes or crushed ice and then wrapping it with a thin towel. Try both and use the method that feels best for 15 to 20 minutes, several times a day. Whether using ice or heat, be careful that you do not injure your skin. Never put ice directly on the skin. Always wrap the ice in a towel or other type of cloth.This is very important, especially in people with poor skin sensations. Try to reduce your stress level. Emotional stress can lead to neck muscle tension and get in the way of or delay the healing process. You may use [id number] pain medicine to control pain, unless another medicine was prescribed. If you have chronic liver or kidney disease or ever had a stomach ulcer or GI bleeding, talk with your healthcare provider before using these medicines. Follow-up care Follow up with your healthcare provider if your symptoms do not show signs of improvement after one week. Physical therapy or further tests may be needed. If X-rays, CT scans, or MRI scans were taken, you will be told of any new findings that may affect your care. Call 911 Call 911 if you have: Sudden weakness or numbness in one or both arms Neck swelling, difficulty or painful swallowing Difficulty breathing Chest pain When to seek medical advice Call your healthcare provider right away if any of these occur: Pain becomes worse or spreads into one or both arm Increasing headache Fever of 100.4 F (38 C) or higher, or as directed by your healthcare provider [id number] [employer]. [address] [place] [address], [place] [address]. All rights reserved. This information is not intended as a substitute for professional medical care. Always follow your healthcare professional's instructions. 12/22/2022 17:20:47 Back and Neck Pain, General General Neck and Back Pain Both neck and back pain are usually caused by injury to the muscles or ligaments of the spine. Sometimes the disks that separate each bone of the spine may cause pain by pressing on a nearby nerve. Back and neck pain may appear after a sudden twisting or bending force (such as in a car accident), or sometimes after a simple awkward movement. In either case, muscle spasm is often present and adds to the pain. Acute neck and back pain usually gets better in 1 to 2 weeks. Pain related to disk disease, arthritis in the spinal joints or spinal stenosis (narrowing of the spinal canal) can become chronic and last for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 (HCC) 2019 Mild intermittent asthma without complication 2007 MRSA infection 2012 2013 Restless legs Scoliosis PAST SURGICAL HISTORY Procedure Laterality Date INCISION AND DRAINAGE ABSCESS SIMPLE/SINGLE 09-08-13 right thigh ALLERGIES Azithromycin, Cephalexin, Gluten, Penicillins, Sulfamethoxazole, Sulfamethoxazole-Trimethoprim, and Trimethoprim MEDICATIONS ferrous sulfate 325 mg (65 mg iron) tablet Take 325 mg by mouth twice daily with meals. esomeprazole (NEXIUM) 20 mg capsule Take 1 capsule by mouth once daily. ONE HOUR BEFORE EATING. tiZANidine (ZANAFLEX) 4 mg tablet TAKE 1 TABLET BY MOUTH TWICE A DAY NEEDED verapamil SR (CALAN SR, ISOPTIN SR) 180 mg CR tablet Take 1 tablet by mouth once daily. traZODone HCl (DESYREL) 300 mg tablet Take 1 tablet by mouth daily at bedtime. naproxen (NAPROSYN) 500 mg tablet Take 1 tablet by mouth twice daily as needed for pain (FOR PAIN - TAKE WITH FOOD.). acetaminophen 325 mg-caffeine 40 mg-butalbital 50 mg (FIORICET) per capsule Take 1 capsule by mouth every 4 hours as needed. NORGESTIMATE-ETHINYL ESTRADIOL 0.18/0.215/0.25 MG-35 MCG,21, TAB Norgestimate-Ethinyl Estradiol Active 1 TAB daily October 07, 2019 3:52pm PROAIR HFA 90 mcg/actuation inhaler spironolactone (ALDACTONE) 100 mg tablet traMADol (ULTRAM) 50 mg tablet Take 50 mg by mouth every 6 hours as needed for pain. FAMILY HISTORY Problem Relation Age of Onset Hypothyroidism Mother Hypothyroidism Father Insomnia Father Dementia Maternal Grandmother Diabetes Maternal Grandfather Polyps Maternal Grandfather Hypertension Paternal Grandfather Social History Tobacco Use Smoking status: Never Smokeless tobacco: Never Substance Use Topics Alcohol use: Not Currently Drug use: Never Review of Systems Constitutional: Positive for diaphoresis and fatigue. Negative for appetite change, chills, fever and unexpected weight change. HENT: Negative for congestion, ear pain, rhinorrhea and sore throat. Eyes: Negative for pain, discharge, itching and visual disturbance. Respiratory: Positive for shortness of breath (relates to asthma). Negative for cough and wheezing. Cardiovascular: N (more content not included)... [facility] 08-28-2022 History of Presen t illness Narrative This note was created using NoteWriter. Subjective Kaia Barrera is a 27 year old female here today for fatigue. I reviewed past medical, surgical, social, and family histories today and updated chart. Allergies, chronic medications, and supplements were also reviewed. Hot flashes Nausea Fatigue Irritability Night sweats Mother went through menopause age 35 She is on the 3 month control but does not stop, takes them all the way through This was to help with the cramping because she is on tramadol for the cramping Has been on prn tramadol since age 13 Last 30 pill Rx lasted a year States it doesn't really help with the cramping 1 week of spotting 2-3 weeks ago was last period Has break through bleeding Has never been At this point she is not interested in getting She is wondering if she has vitamin deficiency Has single gene mutation MTHFR Hx iron and B12 deficient She does not eat red meat, beans or lentils Not as much vegetables as she should Does eat a lot of broccoli Eats fruits Chicken breast mostly, some ham/certain cuts of pork No beef, no fish Not a ton of dairy - some yogurt, does eat cheese She is supplementing with Boost drinks occasionally She exercises 4-5 times a week weight lifting She is losing some weight, has lost about 3-5 lbs in the last month 10 lbs since last October Insomnia - Takes her trazodone as needed - 3-4 times per week It works well Wakes up every 1-2 hours, doesn't impact her as much any more Right now feels good with her sleep overall Has been on spironolactone 100 mg daily for her acne for years, since she was a teenager, doing well on it Nausea - Has acid reflux symptoms everyday She is using nexium or omeprazole OTC They help At times gets won't be able to swallow and food will get stuck She did see a GI once in the past and diagnosed with IBS, has never had upper GI evaluation Has always been an anxious person Last few years was really bad Was on a lot of medication, had severe w/d symptoms coming off them Valium, effexor, latuda, lamictal Meds never really helped Heart racing, pit in the bottom of stomach Went through counseling and learned techniques that help Denies feeling depressed She is Working Going to school - masters program PAST MEDICAL HISTORY Diagnosis Date Chronic low back pain Chronic migraine without aura without status migrainosus, not intractable 2014 Generalized anxiety disorder 2007 Insomnia Mild episode of recurrent major depressive disorder (HCC) 2019 Mild intermittent asthma without complication 2006 MRSA infection 2012 2013 Restless legs Scoliosis PAST SURGICAL HISTORY Procedure Laterality Date INCISION & DRAINAGE ABSCESS SIMPLE/SINGLE 09-08-13 right thigh ALLERGIES Azithromycin, Cephalexin, Gluten, Penicillins, Sulfamethoxazole, Sulfamethoxazole-Trimethoprim, and Trimethoprim MEDICATIONS ferrous sulfate 325 mg (65 mg iron) tablet Take 325 mg by mouth twice daily with meals. esomeprazole (NEXIUM) 20 mg capsule Take 1 capsule by mouth once daily. ONE HOUR BEFORE EATING. tiZANidine (ZANAFLEX) 4 mg tablet TAKE 1 TABLET BY MOUTH TWICE A DAY NEEDED verapamil SR (CALAN SR, ISOPTIN SR) 180 mg CR tablet Take 1 tablet by mouth once daily. traZODone HCl (DESYREL) 300 mg tablet Take 1 tablet by mouth daily at bedtime. naproxen (NAPROSYN) 500 mg tablet Take 1 tablet by mouth twice daily as needed for pain (FOR PAIN - TAKE WITH FOOD.). acetaminophen 325 mg-caffeine 40 mg-butalbital 50 mg (FIORICET) per capsule Take 1 capsule by mouth every 4 hours as needed. NORGESTIMATE-ETHINYL ESTRADIOL 0.18/0.215/0.25 MG-35 MCG,21, TAB Norgestimate-Ethinyl Estradiol Active 1 TAB daily October 07, 2019 3:52pm PROAIR HFA 90 mcg/actuation inhaler spironolactone (ALDACTONE) 100 mg tablet traMADol (ULTRAM) 50 mg tablet Take 50 mg by mouth every 6 hours as needed for pain. FAMILY HISTORY Problem Relation Age of Onset Hypothyroidism Mother Hypothyroidism Father Insomnia Father Dementia Maternal Grandmother Diabetes Maternal Grandfather Polyps Maternal Grandfather Hypertension Paternal Grandfather Social History Tobacco Use Smoking status: Never Smokeless tobacco: Never Substance Use Topics Alcohol use: Not Currently Drug use: Never Review of Systems Constitutional: Positive for diaphoresis and fatigue. Negative for appetite change, chills, fever and unexpected weight change. HENT: Negative for congestion, ear pain, rhinorrhea and sore throat. Eyes: Negative for pain, discharge, itching and visual disturbance. Respiratory: Positive for shortness of breath (relates to asthma). Negative for cough and wheezing. Cardiovascular: Negative for chest pain, palpitations and leg swelling. Maybe a flutter twice a year Gastrointestinal: Positive for abdominal pain and nausea. Negative for constipation, diarrhea and vomiting. Genitourinary: Negative for difficulty urinating. Musculoskeletal: Negative for arthralgias. Skin: Negative for rash. Neurological: Negative for dizziness, tremors, weakness and headaches. Psychiatric/Behavioral: Negative for dysphoric mood and sleep disturbance. The patient is not nervous/anxious. Objective BP 122/70 Pulse 84 Temp 37.1 C (98.8 F) Ht 164.5 cm (5' 4.75) Wt 62.1 kg (137 lb) SpO2 98% BMI 22.97 kg/m Physical Exam Constitutional: Appearance: Normal appearance. She is not toxic-appearing or diaphoretic. HENT: Head: Normocephalic and atraumatic. Hair is normal. Right Ear: External ear normal. Left Ear: External ear normal. Nose: Nose normal. Mouth/Throat: Lips: [place]. No lesions. Mouth: Mucous membranes are moist. No oral lesions. Tongue: No lesions. Pharynx: Oropharynx is clear. Eyes: General: Lids are normal. No scleral icterus. Conjunctiva/sclera: Conjunctivae normal. Pupils: Pupils are equal, round, and reactive to light. Cardiovascular: Rate and Rhythm: Normal rate and regular rhythm. Heart sounds: Normal heart sounds. No murmur heard. Pulmonary: Effort: Pulmonary effort is normal. Breath sounds: Normal breath sounds. No wheezing or rales. Abdominal: General: Bowel sounds are normal. There is no distension or abdominal bruit. Palpations: Abdomen is soft. There is no hepatomegaly, splenomegaly or mass. Tenderness: There is no abdominal tenderness. Musculoskeletal: Cervical back: Normal range of motion and neck supple. Right lower leg: No edema. Left lower leg: No edema. Lymphadenopathy: Cervical: No cervical adenopathy. Skin: General: Skin is warm and dry. Coloration: Skin is not pale. Findings: No bruising, erythema or rash. Nails: There is no clubbing. Neurological: General: No focal deficit present. Mental Status: She is alert and oriented to person, place, and time. Sensory: Sensation is intact. Motor: Motor function is intact. Coordination: Coordination is intact. Psychiatric: Attention and Perception: Attention and perception normal. Mood and Affect: Mood and affect normal. Speech: Speech normal. Behavior: Behavior normal. Behavior is cooperative. Thought Content: Thought content normal. Judgment: Judgment normal. ASSESSMENT/PLAN: 1. Fatigue, unspecified type - ICD9: 780.79, ICD10: R53.83 (primary diagnosis) Check labs Likely related to irregular sleep pattern - METHYLMALONIC ACID - FOLATE SERUM - VITAMIN B12 BLOOD - TSH BLD - MAGNESIUM BLD - PHOSPHORUS INORGANIC - PREALBUMIN BLD - IRON + TIBC - FERRITIN BLD - VITAMIN D 25 HYDROXY 2. Nausea - ICD9: 787.02, ICD10: R11.0 Discussed need for evaluation with EGD, GI referral She would like to postpone GI referral at this time due to finances, will likely be able to after first of the year - CBC + DIFF - COMP METABOLIC PANEL 3. Night sweats - ICD9: 780.8, ICD10: R61 Labs - TSH BLD - FSH BLD - LUTEINIZING HORMONE - ESTROGEN FRACTION BL 4. Irritability - ICD9: 799.22, ICD10: R45.4 5. Hot flashes - ICD9: 782.62, ICD10: R23.2 - TSH BLD - FSH BLD - LUTEINIZING HORMONE - ESTROGEN FRACTION BL 6. Iron deficiency anemia, unspecified iron deficiency anemia type - ICD9: 280.9, ICD10: D50.9 Check labs - METHYLMALONIC ACID - FOLATE SERUM - VITAMIN B12 BLOOD - IRON + TIBC - CBC + DIFF - FERRITIN BLD 7. MTHFR gene mutation - ICD9: V84.89, ICD10: Z15.89 Check labs - METHYLMALONIC ACID - FOLATE SERUM - VITAMIN B12 BLOOD 8. Depression screening - ICD9: V79.0, ICD10: Z13.31 - DEPRESSION SCREENING/ASSESSMENT FU 4 weeks Marissa Blackwood APRN.ARIANNA documented in this encounter [facility] 08-23-2022 Miscellaneous Notes Patient lm on vm stating she is taking OTC Nexium and was wondering if you can prescribe esomeprazole for her.. She states it is expensive and thinks it would be cheaper if it was prescribed. Amber Jovel MA documented in this encounter [facility] 08-21-2022 Miscellaneous Notes pharm requesting refills: Last office visit 07/28/2022. Last refill 07/28/2022 nov 01/26/2023 Requested Prescriptions Pending Prescriptions Disp Refills tiZANidine (ZANAFLEX) 4 mg tablet [Pharmacy Med Name: TIZANIDINE HCL 4 MG TABLET] 60 tablet 5 Sig: TAKE 1 TABLET BY MOUTH TWICE A DAY NEEDED Please review and advise. Amber Jovel MA documented in this encounter [facility] 08-09-2022 Miscellaneous Notes Thank you, form is completed and signed. Marissa Blackwood APRN.CNP Pt dropped off form to be filled out. It is health screening for insurance. 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 Form is in folder in front office. documented in this encounter [facility] 08-01-2022 Miscellaneous Notes Pt. Aware. Amber Jovel MA ----- Message from Marissa Blackwood APRN.CNP sent at 07/29/2022 11:45 AM EDT ----- Mild elevation of total cholesterol - likely due to high HDL which is good cholesterol. Normal glucose. Marissa Blackwood APRN.CNP documented in this encounter [facility] 07-28-2022 Note HNO ID: [id number] Author: Marissa Blackwood APRN.CNP Service: ? Author Type: Nurse Practitioner Type: Progress Notes Filed: 07/29/2022 3:36 PM Note Text: This note was created using NoteWriter. Subjective Kaia Barrera is a 27 year old female here today for well adult exam. I reviewed past medical, surgical, social, and family histories today and updated chart. Allergies, chronic medications, and supplements were also reviewed. She is concerned about back pain - it is chronic. Injured back during school - sports. Diagnosed with scoliosis and disc bulges in the past Has been having worsening back pain Most recently left latissimus dorsi muscle has been hurting x 2 weeks - may have pulled something at the gym. Feels like a tearing or pulling there. No swelling that she's aware. Hurts with twisting/bending Pain is usually in there lower back - both sides. Mostly when she lays down and relaxes - has spasms and then relaxes itself or with standing for long period of times. Also has aching pain. Pain is constant. No radiation into hips or legs. No numbness/tingling in legs/feet No weakness No bowel or bladder incontinence She also has upper back pain. Feels like this is connected to her neck, like she's scrunching her neck. Has tried posture correctors with no relief. Feels tight. She has tried flexeril, zanaflex in the past for flares PT - exercises and TENS unit Has never seen a chiropractor Has tried massage therapy Mostly takes Aleve OTC Has tried acetaminophen and motrin - no relief Has tried heating pad and it does help Has tried the Blue Emu, BenGay, IcyHot, patches - they do provide temporary relief Dad had bad back, needed surgery Sister age 26 diagnosed with degenerative disc disease She has occasional neck pain and tightness in lower neck area, just above the shoulder blades. Cracks her neck and gets tingling in left hand Preventative Health: Breast cancer screening - didn't have breast exam with last pap Cervical cancer screening - Normal Pap last time checked. Gets regular exams with [facility] in Colorectal cancer screening - n/a Osteoporosis screening - n/a Lipid screening - 2020 Immunizations - Would like to update Tdap today Insomnia - trazodone increased to 300 mg last visit in November. Higher dose is helping better but still has issues. She was referred to sleep medicine. She has seen a specialist in the past but is hesitant due to cost of sleep study. Migraine/cluster headache - mostly managed on her verapamil. Takes fiorcet about once a month. PAST MEDICAL HISTORY Diagnosis Date Chronic migraine without aura without status migrainosus, not intractable 2014 Generalized anxiety disorder 2007 Insomnia Mild episode of recurrent major depressive disorder (HCC) 2019 Mild intermittent asthma without complication 2007 MRSA infection 2012 2013 Restless legs PAST SURGICAL HISTORY Procedure Laterality Date INCISION AND DRAINAGE ABSCESS SIMPLE/SINGLE 09-08-13 right thigh ALLERGIES Patient has no known allergies. MEDICATIONS acetaminophen 325 mg-caffeine 40 mg-butalbital 50 mg (FIORICET) per capsule Take 1 capsule by mouth every 4 hours as needed. NORGESTIMATE-ETHINYL ESTRADIOL 0.18/0.215/0.25 MG-35 MCG,21, TAB Norgestimate-Ethinyl Estradiol Active 1 TAB daily October 07, 2019 3:52pm PROAIR HFA 90 mcg/actuation inhaler spironolactone (ALDACTONE) 100 mg tablet traMADol (ULTRAM) 50 mg tablet Take 50 mg by mouth every 6 hours as needed for pain. verapamil SR (CALAN SR, ISOPTIN SR) 180 mg CR tablet Take 1 tablet by mouth once daily. traZODone HCl (DESYREL) 300 mg tablet Take 1 tablet by mouth daily at bedtime. FAMILY HISTORY Problem Relation Age of Onset Hypothyroidism Mother Hypothyroidism Father Insomnia Father Dementia Maternal Grandmother Diabetes Maternal Grandfather Polyps Maternal Grandfather Hypertension Paternal Grandfather Social History Tobacco Use Smoking status: Never Smokeless tobacco: Never Substance Use Topics Alcohol use: Not Currently Drug use: Never Review of Systems Constitutional: Negative for appetite change, chills, fatigue, fever and unexpected weight change. HENT: Negative for congestion, ear pain, rhinorrhea and sore throat. Eyes: Negative for pain, discharge, itching and visual disturbance. Respiratory: Negative for cough, shortness of breath and wheezing. Cardiovascular: Negative for chest pain, palpitations and leg swelling. Gastrointestinal: Negative for abdominal pain, constipation, diarrhea, nausea and vomiting. Musculoskeletal: Positive for back pain and neck pain. Skin: Negative for rash. Neurological: Negative for dizziness, tremors, weakness and headaches. Psychiatric/Behavioral: Positive for dysphoric mood and sleep disturbance. The patient is not nervous/anxious. Objective BP 110/62 (BP Site: Right Arm, BP Position: Sitting (more content not included)... [facility] 07-28-2022 Nurse Note Immunizations were given as ordered. Vaccination information sheet(s) given. Vanessa Diaz MA documented in this encounter [facility] 07-28-2022 History of Presen t illness Narrative This note was created using 5th Fingerriter. Subjective Kaia Barrera is a 27 year old female here today for well adult exam. I reviewed past medical, surgical, social, and family histories today and updated chart. Allergies, chronic medications, and supplements were also reviewed. She is concerned about back pain - it is chronic. Injured back during school - sports. Diagnosed with scoliosis and disc bulges in the past Has been having worsening back pain Most recently left latissimus dorsi muscle has been hurting x 2 weeks - may have pulled something at the gym. Feels like a tearing or pulling there. No swelling that she's aware. Hurts with twisting/bending Pain is usually in there lower back - both sides. Mostly when she lays down and relaxes - has spasms and then relaxes itself or with standing for long period of times. Also has aching pain. Pain is constant. No radiation into hips or legs. No numbness/tingling in legs/feet No weakness No bowel or bladder incontinence She also has upper back pain. Feels like this is connected to her neck, like she's scrunching her neck. Has tried posture correctors with no relief. Feels tight. She has tried flexeril, zanaflex in the past for flares PT - exercises and TENS unit Has never seen a chiropractor Has tried massage therapy Mostly takes Aleve OTC Has tried acetaminophen and motrin - no relief Has tried heating pad and it does help Has tried the Blue Emu, BenGay, IcyHot, patches - they do provide temporary relief Dad had bad back, needed surgery Sister age 26 diagnosed with degenerative disc disease She has occasional neck pain and tightness in lower neck area, just above the shoulder blades. Cracks her neck and gets tingling in left hand Preventative Health: Breast cancer screening - didn't have breast exam with last pap Cervical cancer screening - Normal Pap last time checked. Gets regular exams with [facility] Willard in [place] Colorectal cancer screening - n/a Osteoporosis screening - n/a Lipid screening - 2020 Immunizations - Would like to update Tdap today Insomnia - trazodone increased to 300 mg last visit in November. Higher dose is helping better but still has issues. She was referred to sleep medicine. She has seen a specialist in the past but is hesitant due to cost of sleep study. Migraine/cluster headache - mostly managed on her verapamil. Takes fiorcet about once a month. PAST MEDICAL HISTORY Diagnosis Date Chronic migraine without aura without status migrainosus, not intractable 2014 Generalized anxiety disorder 2006 Insomnia Mild episode of recurrent major depressive disorder (HCC) 2019 Mild intermittent asthma without complication 2006 MRSA infection 2012 2013 Restless legs PAST SURGICAL HISTORY Procedure Laterality Date INCISION & DRAINAGE ABSCESS SIMPLE/SINGLE 09-08-13 right thigh ALLERGIES Patient has no known allergies. MEDICATIONS acetaminophen 325 mg-caffeine 40 mg-butalbital 50 mg (FIORICET) per capsule Take 1 capsule by mouth every 4 hours as needed. NORGESTIMATE-ETHINYL ESTRADIOL 0.18/0.215/0.25 MG-35 MCG,21, TAB Norgestimate-Ethinyl Estradiol Active 1 TAB daily 84 October 07, 2019 3:52pm PROAIR HFA 90 mcg/actuation inhaler spironolactone (ALDACTONE) 100 mg tablet traMADol (ULTRAM) 50 mg tablet Take 50 mg by mouth every 6 hours as needed for pain. verapamil SR (CALAN SR, ISOPTIN SR) 180 mg CR tablet Take 1 tablet by mouth once daily. traZODone HCl (DESYREL) 300 mg tablet Take 1 tablet by mouth daily at bedtime. FAMILY HISTORY Problem Relation Age of Onset Hypothyroidism Mother Hypothyroidism Father Insomnia Father Dementia Maternal Grandmother Diabetes Maternal Grandfather Polyps Maternal Grandfather Hypertension Paternal Grandfather Social History Tobacco Use Smoking status: Never Smokeless tobacco: Never Substance Use Topics Alcohol use: Not Currently Drug use: Never Review of Systems Constitutional: Negative for appetite change, chills, fatigue, fever and unexpected weight change. HENT: Negative for congestion, ear pain, rhinorrhea and sore throat. Eyes: Negative for pain, discharge, itching and visual disturbance. Respiratory: Negative for cough, shortness of breath and wheezing. Cardiovascular: Negative for chest pain, palpitations and leg swelling. Gastrointestinal: Negative for abdominal pain, constipation, diarrhea, nausea and vomiting. Musculoskeletal: Positive for back pain and neck pain. Skin: Negative for rash. Neurological: Negative for dizziness, tremors, weakness and headaches. Psychiatric/Behavioral: Positive for dysphoric mood and sleep disturbance. The patient is not nervous/anxious. Objective BP 110/62 (BP Site: Right Arm, BP Position: Sitting, BP Cuff Size: Regular Adult) Pulse 79 Temp 36.7 C (98.1 F) Resp 16 Ht 164.5 cm (5' 4.75) Wt 63.9 kg (140 lb 12.8 oz) SpO2 98% BMI 23.61 kg/m Physical Exam Constitutional: Appearance: Normal appearance. She is well-developed. HENT: Head: Normocephalic and atraumatic. Right Ear: Hearing, tympanic membrane, ear canal and external ear normal. No drainage. Left Ear: Hearing, tympanic membrane, ear canal and external ear normal. No drainage. Nose: Nose normal. Mouth/Throat: Pharynx: Uvula midline. Eyes: General: Lids are normal. Right eye: No discharge. Left eye: No discharge. Conjunctiva/sclera: Conjunctivae normal. Pupils: Pupils are equal, round, and reactive to light. Neck: Thyroid: No thyromegaly. Vascular: No carotid bruit. Trachea: No tracheal deviation. Cardiovascular: Rate and Rhythm: Normal rate and regular rhythm. Heart sounds: Normal heart sounds. No murmur heard. Pulmonary: Effort: Pulmonary effort is normal. Breath sounds: Normal breath sounds. No wheezing, rhonchi or rales. Chest: Breasts: Right: Normal. Left: Normal. Abdominal: General: Bowel sounds are normal. There is no distension or abdominal bruit. Palpations: Abdomen is soft. There is no mass. Tenderness: There is no abdominal tenderness. Musculoskeletal: Cervical back: Normal range of motion and neck supple. No tenderness. No pain with movement. Normal range of motion. Thoracic back: No tenderness. Normal range of motion. Lumbar back: No tenderness or bony tenderness. Normal range of motion. Negative left straight leg raise test. Right hip: Normal. Left hip: Normal. Right lower leg: No edema. Left lower leg: No edema. Lymphadenopathy: Cervical: No cervical adenopathy. Upper Body: Right upper body: No supraclavicular adenopathy. Left upper body: No supraclavicular adenopathy. Skin: General: Skin is warm and dry. Findings: No bruising or rash. Neurological: General: No focal deficit present. Mental Status: She is alert and oriented to person, place, and time. Cranial Nerves: No cranial nerve deficit. Sensory: Sensation is intact. Motor: Motor function is intact. Coordination: Coordination is intact. Gait: Gait is intact. Deep Tendon Reflexes: Reflexes are normal and symmetric. Reflex Scores: Patellar reflexes are 2+ on the right side and 2+ on the left side. Psychiatric: Mood and Affect: Mood normal. Behavior: Behavior normal. Behavior is cooperative. Thought Content: Thought content normal. Judgment: Judgment normal. Component Latest Ref Rng & Units 05/19/2021 Protein, Total 6.3 - 8.0 g/dL 6.8 Albumin 3.9 - 4.9 g/dL 4.2 Calcium 8.5 - 10.2 mg/dL 9.2 Bilirubin, Total 0.2 - 1.3 mg/dL 0.4 Alkaline Phosphatase 34 - 123 U/L 46 AST 13 - 35 U/L 16 ALT 7 - 38 U/L 11 Glucose 74 - 99 mg/dL 83 BUN 7 - 21 mg/dL 18 Creatinine 0.58 - 0.96 mg/dL 0.90 Sodium 136 - 144 mmol/L 137 Potassium 3.7 - 5.1 mmol/L 3.9 Chloride 97 - 105 mmol/L 103 CO2 22 - 30 mmol/L 22 Anion Gap 9 - 18 mmol/L 12 eGFR- >60 eGFR-All Other Races >60 WBC 3.70 - 11.00 k/uL 8.03 RBC 3.90 - 5.20 m/uL 3.74 (L) Hemoglobin 11.5 - 15.5 g/dL 12.6 Hematocrit 36.0 - 46.0 % 37.3 MCV 80.0 - 100.0 fL 99.7 MCH 26.0 - 34.0 pg 33.7 MCHC 30.5 - 36.0 g/dL 33.8 RDW-CV 11.5 - 15.0 % 12.7 Platelet Count 150 - 400 k/uL 306 MPV 9.0 - 12.7 fL 9.8 Cholesterol, Total <200 mg/dL 183 Triglyceride <150 mg/dL 82 HDL Cholesterol >39 mg/dL 91 Non HDL Cholesterol <130 mg/dL 92 Fasting Time hrs 12 VLDL Cholesterol <30 mg/dL 16 TC:HDL Ratio <5.10 2.01 LDL Cholesterol <100 mg/dL 76 LDL:HDL Ratio <2.54 0.84 TSH 0.270 - 4.200 uU/mL 2.180 ASSESSMENT/PLAN: 1. Well adult exam - ICD9: V70.0, ICD10: Z00.00 (primary diagnosis) - Counseled on healthy diet and regular exercise - Follow up for annual exam in one year 2. Intractable chronic cluster headache - ICD9: 339.02, ICD10: G44.021 Stable on verapamil - VERAPAMIL ER (SR) 180 MG TABLET,EXTENDED RELEASE 3. Migraine without aura, intractable, without status migrainosus - ICD9: 346.11, ICD10: G43.019 Stable on verapamil - VERAPAMIL ER (SR) 180 MG TABLET,EXTENDED RELEASE 4. Insomnia, unspecified type - ICD9: 780.52, ICD10: G47.00 Stable on trazodone - TRAZODONE 300 MG TABLET 5. Encounter for immunization - ICD9: V03.89, ICD10: Z23 - TDAP VACCINE AGE 7+ IM - IMADM PRQ ID SUBQ/IM NJXS 1 VACC 6. Chronic bilateral low back pain without sciatica - ICD9: 724.2, 338.29, ICD10: M54.50, G89.29 X-ray to evaluate Naproxen and tizanidine as needed Consider referral to [facility] - XR LUMBAR PARS DEFECT 4V AP/LAT/BOTH OBL - TIZANIDINE 4 MG TABLET - NAPROXEN 500 MG TABLET 7. Chronic upper back pain - ICD9: 724.5, 338.29, ICD10: M54.9, G89.29 X-ray to evaluate Naproxen and tizanidine as needed Consider referral to [facility] - XR THORACIC GENERAL 3V AP/LAT/SWIMMERS - TIZANIDINE 4 MG TABLET - NAPROXEN 500 MG TABLET 8. Neck pain - ICD9: 723.1, ICD10: M54.2 - XR CERV OTHER 4V AP/LAT/OBL 9. Screening for diabetes mellitus - ICD9: V77.1, ICD10: Z13.1 - GLUCOSE RANDOM BLD 10. Screening for lipid disorders - ICD9: V77.91, ICD10: Z13.220 - LIPID PANEL BASIC FU 6 months Marissa Blackwood APRN.ARIANNA documented in this encounter [facility] 11-28-2021 Note HNO ID: [id number] Author: Jamey Farias APRN.CNP Service: ? Author Type: Nurse Practitioner Type: Progress Notes Filed: 11/29/2021 9:02 AM Note Text: This note was created using [employer]. Subjective Kaia Barrera is a 26 year old female here today for concerns regarding her insomnia. PMH asthma, migraines, acne, depression and anxiety. Insomnia: Chronic, pt reports this has been occurring for years. She feels it started after she was working for [employer] and would get up 2-3 am for work. She reports since she has not been able to sleep. Her psychiatrist has been treating this for her. She reports she has tried all otc sleep aides, ramelteon, mirtazapine, doxepin, clonopin, ativan, valium, benadryl in the past and states none of these have helped her. Reports trouble falling and staying asleep. Reports she will sleep 30-60 min at a time. Reports she will nap during the day because she is tired from not sleeping. She reports she is tired of being tired. Reports getting about 4-6 interrupted hours of sleep a night. She is taking trazodone 200 mg at bedtime. She reports this is not effective. She reports drinking one cup of coffee in am and nothing else throughout the day that has caffeine. Pt reports she will watch TV before bedtime and then will go to bed and lay there for hours. She reports last night she went to bed at 10 pm and did not follow asleep until 3 am. She reports she has tried getting up from bed and reading when cant fall asleep but states all the stuff they wanted her to do she has tried and none of it has worked. She does sleep with her dog but states she does not interfere with her sleep She reports she did see a sleep specialist in the past but cant remember when or who. Reports she has tramadol from her OB that she will take when she gets period cramps as needed. Reports she had COVID 10/24/21. Preventative: she is not interested in covid or flu vaccine. PAST MEDICAL HISTORY Diagnosis Date - Chronic migraine without aura without status migrainosus, not intractable 2014 - Generalized anxiety disorder 2006 - Mild episode of recurrent major depressive disorder (HCC) 2019 - Mild intermittent asthma without complication 2006 - MRSA infection 2012 2013 - Restless legs PAST SURGICAL HISTORY Procedure Laterality Date - I AND D ABSCESS, SINGLE 09-08-13 right thigh Family History Problem Relation Age of Onset - Hypothyroidism Mother - Hypothyroidism Father - Insomnia Father - Dementia Maternal Grandmother - Diabetes Maternal Grandfather - Polyps Maternal Grandfather - Hypertension Paternal Grandfather Social History Tobacco Use - Smoking status: Never Smoker - Smokeless tobacco: Never Used Substance Use Topics - Alcohol use: Not Currently - Drug use: Never Current Outpatient Medications on File Prior to Visit Medication Sig - verapamil SR (CALAN SR, ISOPTIN SR) 180 mg CR tablet Take 1 tablet by mouth twice daily. - acetaminophen 325 mg-caffeine 40 mg-butalbital 50 mg (FIORICET) per capsule Take 1 capsule by mouth every 4 hours as needed. - NORGESTIMATE-ETHINYL ESTRADIOL 0.18/0.215/0.25 MG-35 MCG,21, TAB Norgestimate-Ethinyl Estradiol Active 1 TAB daily October 07, 2019 3:52pm - PROAIR HFA 90 mcg/actuation inhaler - spironolactone (ALDACTONE) 100 mg tablet - traZODone (DESYREL) 100 mg tablet Take by mouth. - traMADol (ULTRAM) 50 mg tablet Take 50 mg by mouth every 6 hours as needed for pain. - benzonatate (TESSALON PERLES) 100 mg capsule Take 1 capsule by mouth three times daily as needed for cough. - LATUDA 80 mg tablet 40 mg. - rOPINIRole (REQUIP) 1 mg tablet prn No current facility-administered medications on file prior to visit. Review of Systems Constitutional: Negative for activity change, appetite change, chills, diaphoresis, fatigue, fever and unexpected weight change. Respiratory: Negative for cough, shortness of breath and wheezing. Cardiovascular: Negative for chest pain, palpitations and leg swelling. Endocrine: Negative for cold intolerance, heat intolerance, polydipsia, polyphagia and polyuria. Genitourinary: Negative for difficulty urinating. Neurological: Negative for dizziness, facial asymmetry and headaches. Psychiatric/Behavioral: Positive for sleep disturbance. Negative for agitation, confusion and dysphoric mood. The patient is not nervous/anxious. Objective BP 110/70 (BP Site: Left Arm, BP Position: Sitting, BP Cuff Size: Regular Adult) Pulse 71 Temp 36.8 ?C (98.3 ?F) (Oral) Resp 18 Ht 165.1 cm (5' 5) Wt 66.3 kg (146 lb 3.2 oz) SpO2 99% BMI 24.33 kg/m? Physical Exam Vitals and nursing note reviewed. Constitutional: General: She is not in acute distress. Appearance: Normal appearance. She is not ill-appearing. HENT: Head: Normocephalic and atraumatic. Cardiovascular: Rate and Rhythm: Normal rate and regular rhythm. Pulses: Normal pulses. (more content not included)... [facility] 09-23-2021 Note HNO ID: [id number] Author: Marissa Blackwood APRN.WORKFORCE ADVISOR Service: ? Author Type: Nurse Practitioner Type: Progress Notes Filed: 09/23/2021 6:12 PM Note Text: This note was created using [employer]. Subjective Kaia Barrera is a 26 year old female here today for migraines. I reviewed past medical, surgical, social, and family histories today and updated chart. Allergies, chronic medications, and supplements were also reviewed. Diagnosed in 2016 - cluster and migraine She is on verapamil now - dose increased a year ago, migraines are back Tried topamax twice and had too many side effects Fiorcet as needed for acute pain Saw a neurologist in the past, doesn't remember the name Had a brain scan 2013 in [place], thinks it was a CT scan Also has tried imitrex and her neck muscles constricted, also tried maxalt and same thing happened. Also tried propranolol - was taking for anxiety and it didn't help no longer Takes iron supplement OTC No OTC pain medications for the headache Located left frontal Stabbing shooting pain Occur everyday sometimes twice a day No pain for 3 sec then intense shooting pain and pulsating They have been worse in the last month ASSOCIATED SYMPTOMS: Fever: No Nausea: No Vomiting: No Photophobia: Yes Neck Stiffness: No Inability to move head freely or touch chin to neck: No Sinus congestion: No Purulent nasal discharge: No Toothache/dental problem: No Tongue or Jaw Pain: No Scalp pain with combing hair: No NEUROLOGIC SYMPTOMS: Numbness: No Weakness: No Slurred speech: No Visual changes: No Dizziness: No Clumsiness: No Difficulty with gait: No Change in level of consciousness: No Change in orientation: No Change in behavior: No History of headaches: migraine Injury/Trauma: No Caffeine Intake: Yes - couple times a week cup of coffee Alcohol Intake: Yes - social drinker maybe twice a month Gym 4 times a week Eats healthy 1/2 gallon water per day 2 good meals a day plus snacks Sleep 7-8 hours a night Gained 15 lbs in the past year [facility] Wears contacts Tried glasses but no change in headaches Last eye doc appt November PAST MEDICAL HISTORY Diagnosis Date - Chronic migraine without aura without status migrainosus, not intractable 2014 - Generalized anxiety disorder 2006 - Mild episode of recurrent major depressive disorder (HCC) 2019 - Mild intermittent asthma without complication 2006 - MRSA infection 2012 2013 - Restless legs PAST SURGICAL HISTORY Procedure Laterality Date - I AND D ABSCESS, SINGLE 09-08-13 right thigh ALLERGIES Patient has no allergy information on record. MEDICATIONS verapamil SR (CALAN SR, ISOPTIN SR) 180 mg CR tablet Take 1 tablet by mouth twice daily. NORGESTIMATE-ETHINYL ESTRADIOL 0.18/0.215/0.25 MG-35 MCG,21, TAB Norgestimate-Ethinyl Estradiol Active 1 TAB daily 84 October 07, 2019 3:52pm PROAIR HFA 90 mcg/actuation inhaler LATUDA 80 mg tablet 40 mg. rOPINIRole (REQUIP) 1 mg tablet prn spironolactone (ALDACTONE) 100 mg tablet traZODone (DESYREL) 100 mg tablet Take by mouth. traMADol (ULTRAM) 50 mg tablet Take 50 mg by mouth every 6 hours as needed for pain. acetaminophen 325 mg-caffeine 40 mg-butalbital 50 mg (FIORICET) per capsule Take 1 capsule by mouth every 4 hours as needed. FAMILY HISTORY Problem Relation Age of Onset - Hypothyroidism Mother - Hypothyroidism Father - Insomnia Father - Dementia Maternal Grandmother - Diabetes Maternal Grandfather - Polyps Maternal Grandfather - Hypertension Paternal Grandfather Social History Tobacco Use - Smoking status: Never Smoker - Smokeless tobacco: Never Used Substance Use Topics - Alcohol use: Not Currently - Drug use: Never Review of Systems Constitutional: Positive for unexpected weight change. Negative for appetite change, chills, fatigue and fever. HENT: Negative for congestion, ear pain, rhinorrhea and sore throat. Eyes: Positive for photophobia. Negative for pain, discharge, itching and visual disturbance. Respiratory: Negative for cough, shortness of breath and wheezing. Cardiovascular: Negative for chest pain, palpitations and leg swelling. Gastrointestinal: Negative for abdominal pain, constipation, diarrhea, nausea and vomiting. Musculoskeletal: Negative for arthralgias. Skin: Negative for rash. Neurological: Positive for headaches. Negative for dizziness, tremors and weakness. Psychiatric/Behavioral: Negative for dysphoric mood and sleep disturbance. The patient is not nervous/anxious. Objective BP 114/62 (BP Site: Right Arm, BP Position: Sitting, BP Cuff Size: Regular Adult) Pulse 85 Temp 36.8 ?C (98.3 ?F) (Oral) Ht 165.1 cm (5' 5) Wt 67.1 kg (148 lb) SpO2 98% BMI 24.63 kg/m? Physical Exam Constitutional: Appearance: She is not toxic-appearing or diaphoretic. HENT: Head: Normocephalic and atraumatic. Right E (more content not included)... [facility] 05-16-2021 Note HNO ID: [id number] Author: Jamey Farias APRN.WORKFORCE ADVISOR Service: ? Author Type: Nurse Practitioner Type: Progress Notes Filed: 05/17/2021 5:11 PM Note Text: This note was created using NoteWriter. Subjective Kaia Barrera is a 26 year old female here today for wellness exam for work. PMH Asthma, RLS, acne, sweating, migraines. Former PCP Luis Restrepo . Reports transferring care due to location. 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 Asthma: chronic, originally dx in early teens. Reports environmental factors will cause flare ups. She is taking Singulair daily for this. And Breo ellipta. She will use proair as needed. She has not needed this since her last flare up in 02/06. States she had flare up because she stopped all her medications. Once she restarted them she has been fine. Reports prior flare up was 2+ yrs ago. Denies night wakings. Reports occasional non productive cough. Migraines: chronic stable. Reports taking verapamil dailly for this. This is usually effective. She reports she does have a rx for fiorecet to take as needed. At most 4-8x/month. Denies known triggers. She does feel it is stress related. Denies visual changes or any other aura. Acne: she is taking aldactone for management. [facility] pres[facility] this for her. Depression and anxiety: Chronic stable. Reports depression started about a year ago. Reports she was on medications for this but then stopped them. Reports immediately symptoms worsened. She is currently taking latuda for depression. She is taking trazodone for sleep. Reports taking cogentin daily for sweating due to side effects of her depression medications. Reports all medications prescribed by [facility] She is not in counseling. Insomnia: she is taking trazodone 100 mg at bedtime for this. Reports this as effective. She is seeing Christen Willard at [place] for her [facility]ICE. Last 2019 Preventative: she exercises 60 min 3-4 days a week with weight lifting and 30 min cardio. Reports walks other days. Reports following healthy diet. Eats chicken lots of salads, protein shakes. PAST MEDICAL HISTORY Diagnosis Date - Chronic migraine without aura without status migrainosus, not intractable 2014 - Generalized anxiety disorder 2006 - Mild episode of recurrent major depressive disorder (HCC) 2019 - Mild intermittent asthma without complication 2006 - MRSA infection 2012 2013 - Restless legs Current Outpatient Medications on File Prior to Visit Medication Sig - NORGESTIMATE-ETHINYL ESTRADIOL 0.18/0.215/0.25 MG-35 MCG,21, TAB Norgestimate-Ethinyl Estradiol Active 1 TAB daily 84 October 07, 2019 3:52pm - montelukast (SINGULAIR) 10 mg tablet Take by mouth q 24 HR. - PROAIR HFA 90 mcg/actuation inhaler - benztropine (COGENTIN) 0.5 mg tablet - BREO ELLIPTA 200-25 mcg/dose inhaler - LATUDA 80 mg tablet - rOPINIRole (REQUIP) 1 mg tablet - spironolactone (ALDACTONE) 100 mg tablet - traZODone (DESYREL) 100 mg tablet Take by mouth. - verapamil SR (CALAN SR, ISOPTIN SR) 180 mg CR tablet - traMADol (ULTRAM) 50 mg tablet Take 50 mg by mouth every 6 hours as needed for pain. - adapalene-benzoyl peroxide 0.1-2.5 % glwp Adapalene/Benzoyl Peroxide Active 1 APPLIC DAILY October 07, 2019 3:45pm No current facility-administered medications on file prior to visit. Review of Systems Constitutional: Positive for unexpected weight change. Negative for activity change, appetite change, chills, diaphoresis, fatigue and fever. Wt gain gradual over the past year about 10 lbs HENT: Negative for postnasal drip, sinus pressure, sinus pain, sore throat, tinnitus and trouble swallowing. Eyes: Negative for photophobia, pain, discharge, redness, itching and visual disturbance. Respiratory: Positive for wheezing. Negative for cough, chest tightness and shortness of breath. Last episode asthma 01/18/21reports prior attack was 2+ yrs ago. She stopped all medications. Wheezing only with asthma attack or sometimes during exercise. Cardiovascular: Negative for chest pain, palpitations and leg swelling. Gastrointestinal: Negative for abdominal pain, blood in stool, constipation, diarrhea, nausea and vomiting. Reports hx IBS, takes probiotic daily. Constipation alternating with diarrhea. Endocrine: Positive for cold intolerance. Negative for heat intolerance, polydipsia, polyphagia and polyuria. Reports this is not new Genitourinary: Negative for difficulty urinating, dysuria, flank pain, frequency, pelvic pain, vaginal bleeding and vaginal discharge. Musculoskeletal: Negative for arthralgias, back pain, joint swelling, myalgias and neck pain. Chronic low back pain. Reports injured Herself years ago playing volleyball. Skin: Negative for color change and rash. Allergic/Immunologic: Negative for environmental allergies and food allergies (more content not included)... [facility] No data available for this section [facility] Evaluation note Diagnosis Well adult exam- Primary Routine general medical examination at a health care facility Intractable chronic cluster headache Chronic cluster headache Migraine without aura, intractable, without status migrainosus Insomnia, unspecified type Encounter for immunization Need for other specified prophylactic vaccination against single bacterial disease Chronic bilateral low back pain without sciatica Chronic upper back pain Backache, unspecified Neck pain Cervicalgia Screening for diabetes mellitus Screening for lipid disorders [facility]* Diagnosis Chronic bilateral low back pain without sciatica Chronic upper back pain Backache, unspecified documented in this encounter [facility] note* Diagnosis Fatigue, unspecified type- Primary Nausea Nausea alone Night sweats Generalized hyperhidrosis Irritability Hot flashes Symptomatic menopausal or female climacteric states Iron deficiency anemia, unspecified iron deficiency anemia type MTHFR gene mutation Depression screening Screening for depression documented in this encounter [facility] note* Diagnosis Iron deficiency anemia, unspecified iron deficiency anemia type- Primary [facility]* Diagnosis Acne, unspecified acne type- Primary documented in this encounter [facility] note* Diagnosis Migraine without aura and without status migrainosus, not intractable- Primary Migraine without aura, without mention of intractable migraine without mention of status migrainosus documented in this encounter [facility] note* Diagnosis Migraine without aura and without status migrainosus, not intractable Migraine without aura, without mention of intractable migraine without mention of status migrainosus [facility] Name Dates Details Instructions not documented [facility] Work Phone: reason for referral (narrative)* Diagnostic Procedure Only (Routine) - Pending Review Specialty Diagnoses / Procedures Referred By Radhaac t Referred To Contact XR IMAGING Diagnoses Neck pain Procedures XR CERV OTHER 4V AP/LAT/OBL RADEX SPINE CERVICAL 4 OR 5 VIEWS Marissa Blackwood, [place].WORKFORCE ADVISOR [address] [place] [id number] Xr Imaging Referral ID Status Reason Start Date Expiration Date Visits Requested Visits Authorized [id number] Pending Review Auto-Generat ed Referral 07/28/2022 08/27/2023 1 1 * Diagnostic Procedure Only (Routine) - Pending Review Specialty Diagnoses / Procedures Referred By Contac t Referred To Contact XR IMAGING Diagnoses Chronic upper back pain Procedures XR THORACIC GENERAL 3V AP/LAT/SWIMMERS RADEX SPINE THORACIC 3 VIEWS Marissa Blackwood APRN.CNP [address] [place] [address] Xr Imaging Referral ID Status Reason Start Date Expiration Date Visits Requested Visits Authorized [id number] Pending Review Auto-Generat ed Referral 07/28/2022 08/27/2023 1 1 * Diagnostic Procedure Only (Routine) - Pending Review Specialty Diagnoses / Procedures Referred By Tonya t Referred To Contact XR IMAGING Diagnoses Chronic bilateral low back pain without sciatica Procedures XR LUMBAR PARS DEFECT 4V AP/LAT/BOTH OBL RADEX SPINE LUMBOSACRAL MINIMUM 4 VIEWS Marissa Blackwood APRN.CNP [address] [place] [address] Xr Imaging Referral ID Status Reason Start Date Expiration Date Visits Requested Visits Authorized [id number] Pending Review Auto-Generat ed Referral 07/28/2022 08/27/2023 1 1 [facility] Instructions Name Dates Details Non-smoker : How to access h ealth information online Indication:Non-smoker Non-smoker : How to access h ealth information online - Detail Indication:Non-smoker Non-smoker : Patient Instruc tions Indication:Non-smoker Screening for HPV (human pap illomavirus) (Renamed from Encounter for screening for human papillomavirus (HPV)) : Patient Instructions Indication:Screening for HPV (human papillomavirus) (Renamed from Encounter for screening for human papillomavirus (HPV)) Asthma : How to access healt h information online Indication:Asthma Asthma : How to access healt h information online - Detail Indication:Asthma Asthma : Patient Instruction s Indication:Asthma Sleep disorder, shift-work : Patient Instructions Indication:Sleep disorder, shift-work Cervical muscle pain : How t o access health information online Indication:Cervical muscle pain Cervical muscle pain : How t o access health information online - Detail Indication:Cervical muscle pain Cervical muscle pain : Patie nt Instructions Indication:Cervical muscle pain Infection of skin of left ea r lobe : Patient Instructions Indication:Infection of skin of left ear lobe Wheeze : Patient Instruction s Indication:Wheeze Finger pain, right : Patient Instructions Indication:Finger pain, right Back pain : Patient Instruct ions Indication:Back pain Nausea : How to access healt h information online Indication:Nausea Nausea : How to access healt h information online - Detail Indication:Nausea Nausea : Patient Instruction s Indication:Nausea Shoulder pain : Patient Inst ructions Indication:Shoulder pain Name Dates Details How to access health informa tion online Indication:Non-smoker Start:09-Jul-2017 Instruction Type:Patient Education How to access health informa tion online - Detail Indication:Non-smoker Start:09-Jul-2017 Instruction Type:Patient Education Patient Instructions Indication:Non-smoker Start:09-Jul-2017 Instruction Type:Provider Instructions for Treatment Patient Instructions Indication:Screening for HPV (human papillomavirus) (Renamed from Encounter for screening for human papillomavirus (HPV)) Start:01-May-2016 Instruction Type:Provider Instructions for Treatment How to access health informa [employer] [employer] Indication:Asthma Start:21-Apr-2016 Instruction Type:Patient Education How to access health informa tion online - Detail Indication:Asthma Start:21-Apr-2016 Instruction Type:Patient Education Patient Instructions Indication:Asthma Start:21-Apr-2016 Instruction Type:Provider Instructions for Treatment Patient Instructions Indication:Sleep disorder, shift-work Start:11-Oct-2015 Instruction Type:Provider Instructions for Treatment [facility] Indication:Cervical muscle pain Start:02-Sep-2015 Instruction Type:Patient Education How to access health informa tion online - Detail Indication:Cervical muscle pain Start:02-Sep-2015 Instruction Type:Patient Education Patient Instructions Indication:Cervical muscle pain Start:02-Sep-2015 Instruction Type:Provider Instructions for Treatment Patient Instructions Indication:Infection of skin of left ear lobe Start:29-Mar-2015 Instruction Type:Provider Instructions for Treatment Patient Instructions Indication:Asthma Start:19-Mar-2015 Instruction Type:Provider Instructions for Treatment Patient Instructions Indication:Wheeze Start:05-Mar-2015 Instruction Type:Provider Instructions for Treatment Patient Instructions Indication:Finger pain, right Start:26-Aug-2014 Instruction Type:Provider Instructions for Treatment Patient Instructions Indication:Back pain Start:04-Aug-2014 Instruction Type:Provider Instructions for Treatment How to access health informa tion [employer] Indication:Nausea Start:26-Jun-2014 Instruction Type:Patient Education How to access health informa tion online - Detail Indication:Nausea Start:26-Jun-2014 Instruction Type:Patient Education Patient Instructions Indication:Nausea Start:26-Jun-2014 Instruction Type:Provider Instructions for Treatment Patient Instructions Indication:Shoulder pain Start:24-Mar-2014 Instruction Type:Provider Instructions for Treatment Name Dates Details Instructions not documented Summary Purpose Family History No Family History Records Found Mother Name Dates Details Family history of cerebrovas cular accident (CVA)(V17.1, Z82.3) Status:Active Mother Name Dates Details Family history of cerebrovas cular accident (CVA)(V17.1, Z82.3) Status:Active Father Name Dates Details No pertinent family history( V49.89, Z78.9) Status:Active Unknown Family Member Name Dates Details Family history of cerebrovas cular accident (CVA): Mother(V17.1, Z82.3) Status:Active No pertinent family history: Father(V49.89, Z78.9) Status:Active Advance Directives No Advanced Directives Records FoundNo Advanced Directives Records FoundNo Advanced Directives Records FoundNo Advanced Directives Records FoundNo Advanced Directives Records FoundNo Advanced Directives Records FoundNo Advanced Directives Records Found Additional Source Comments INFORMATION SOURCE (unrecogn ized section and content) DATE CREATED AUTHOR 04/22/2019 [facility] DATE CREATED AUTHOR AUTHOR'S ORGANIZ ATION 02/12/2021 [facility] DATE CREATED AUTHOR AUTHOR'S ORGANIZ ATION 02/12/2021 [employer] DATE CREATED AUTHOR AUTHOR'S ORGANIZ ATION 01/09/2022 [facility] DATE CREATED AUTHOR AUTHOR'S ORGANIZ ATION 12/26/2022 [facility] DATE CREATED AUTHOR AUTHOR'S ORGANIZ ATION 12/28/2022 [facility] DATE CREATED AUTHOR AUTHOR'S ORGANIZ ATION 01/04/2025 [facility] Source Comments (unrecognize d section and content) In the event this informatio n is protected by the Federal Confidentiality of Alcohol and Drug Abuse Patient Records regulations: The Federal rules restrict any use of the information to criminally investigate or prosecute any alcohol or drug abuse patient.[facility] the event this information is protected by the Federal Confidentiality of Alcohol and Drug Abuse Patient Records regulations: The Federal rules restrict any use of the information to criminally investigate or prosecute any alcohol or drug abuse patient.[facility] the event this information is protected by the Federal Confidentiality of Alcohol and Drug Abuse Patient Records regulations: The Federal rules restrict any use of the information to criminally investigate or prosecute any alcohol or drug abuse patient.[facility] the event this information is protected by the Federal Confidentiality of Alcohol and Drug Abuse Patient Records regulations: The Federal rules restrict any use of the information to criminally investigate or prosecute any alcohol or drug abuse patient.[facility] the event this information is protected by the Federal Confidentiality of Alcohol and Drug Abuse Patient Records regulations: The Federal rules restrict any use of the information to criminally investigate or prosecute any alcohol or drug abuse patient.[facility] the event this information is protected by the Federal Confidentiality of Alcohol and Drug Abuse Patient Records regulations: The Federal rules restrict any use of the information to criminally investigate or prosecute any alcohol or drug abuse patient.[facility] Hospital[facility] the event this information is protected by the Federal Confidentiality of Alcohol and Drug Abuse Patient Records regulations: The Federal rules restrict any use of the information to criminally investigate or prosecute any alcohol or drug abuse patient.[facility] the event this information is protected by the Federal Confidentiality of Alcohol and Drug Abuse Patient Records regulations: The Federal rules restrict any use of the information to criminally investigate or prosecute any alcohol or drug abuse patient.[facility] Hospital[facility] the event this information is protected by the Federal Confidentiality of Alcohol and Drug Abuse Patient Records regulations: The Federal rules restrict any use of the information to criminally investigate or prosecute any alcohol or drug abuse patient.[facility] the event this information is protected by the Federal Confidentiality of Alcohol and Drug Abuse Patient Records regulations: The Federal rules restrict any use of the information to criminally investigate or prosecute any alcohol or drug abuse patient.[facility] the event this information is protected by the Federal Confidentiality of Alcohol and Drug Abuse Patient Records regulations: The Federal rules restrict any use of the information to criminally investigate or prosecute any alcohol or drug abuse patient.[facility] Hospital[facility] the event this information is protected by the Federal Confidentiality of Alcohol and Drug Abuse Patient Records regulations: The Federal rules restrict any use of the information to criminally investigate or prosecute any alcohol or drug abuse patient.[facility] Reason for Visit (unrecogniz ed section and content) Reason Comments Well Adult Reason Comments Results Reason Comments form for health screening Pt dropped off form to be filled out for health screening for Ins. Reason Comments Refill Request Reason Comments Patient Question Reason Comments Fatigue Nausea Sleep Problem X 2years. Getting wo rse. Night sweats, irritable. Anemia Reason Comments Lab Orders Reason Onset Date Comments ed outreach 12/25/2022 Ed outreach Reason Onset Date Comments Refill Request 01/14/2023 Reason Onset Date Comments Refill Request 01/18/2023 Care Teams (unrecognized sec tion and content) Mold Cleaner Relationship Specialty Start Date End Date Marissa Blackwood, [employer] ADVISOR [address] [place] [address] PCP - General Family Practice 07/28/22 Mold Cleaner Relationship Specialty Start Date End Date Marissa Blackwood, [employer] ADVISOR [address] [place] [address] PCP - General Family Practice 07/28/22 Mold Cleaner Relationship Specialty Start Date End Date Marissa Blackwood, [employer] ADVISOR [address] [place] [address] PCP - General Family Medicine 07/28/22 Mold Cleaner Relationship Specialty Start Date End Date Marissa Blackwood, [employer]WORK[employer] ADVISOR [address] [place] [address] PCP - General Family Medicine 07/28/22 Mold Cleaner Relationship Specialty Start Date End Date Marissa Blackwood, [employer]WORKFOR[employer] ADVISOR [address] [facility] [place] [address] PCP - General Family Medicine 07/28/22 Mold Cleaner Relationship Specialty Start Date End Date Marissa Blackwood, [employer]WORK[employer] ADVISOR [address] [place] [address] PCP - General Family Medicine 07/28/22 Mold Cleaner Relationship Specialty Start Date End Date Marissa Blackwood APRN.WORKFORCE ADVISOR [address], [place] [id number] PCP - General Family Medicine 07/28/22 Mold Cleaner Relationship Specialty Start Date End Date Marissa Blackwood APRN.ARIANNA [address], [place] [id number] PCP - General Family Medicine 07/28/22 Mold Cleaner Relationship Specialty Start Date End Date Marissa Blackwood APRN.WORKFORCE ADVISOR [address], [place] [id number] PCP - General Family Medicine 07/28/22 Care Team (unrecognized sect ion and content) Care Team Personnel Name: JESUS BLACKWOOD [employer] ADVISOR Member Role: Primary Care Physician Address: Address: [address] [place] [id number]- Name: EDU Astudillo Position: ED RN Member Role: ED RN Name: CARITO JURADO MD Position: ED Physician Member Role: ED Physician Address: Address: [facility] [address] [place] [id number] FOR RECORDS PERTAINING TO PATIENTS WHO ARE OR HAVE BEEN ENROLLED IN A CHEMICAL DEPENDENCY/SUBSTANCEABUSE PROGRAM, SOME INFORMATION MAY BE OMITTED. This clinical summary was aggregated from multiple sources. Caution should be exercised in using it in the provision of clinical care. This summary normalizes information from multiple sources, and as a consequence, information in this document may materially change the coding, format and clinical context of patient data. In addition, data may be omitted in some cases. CLINICAL DECISIONS SHOULD BE BASED ON THE PRIMARY CLINICAL RECORDS. [facility] [employer] provides no warranty or guarantee of the accuracy or completeness of information in this document.
[2025-11-12] MEDS: 0.9% Normal Saline (1000mL) 1,000 ML 999 ML IV (05:09)
[2025-11-12 05:26] LABS: Hematocrit 33.2 % (37-47); Hemoglobin 11.2 g/dL (12.0-15.0); Immature Granulocytes Count 0.030 X10^3/uL (0.0-0.0); Mean Corp Hgb Conc 33.7 g/dL (32-36); Mean Corpuscular Volume 85.3 fL (81-99); Mean Platelet Vol. 10.1 fl (6.2-12.0); NRBC Flagged by Analyzer 0 % (0-5); Platelet Count 310 K/mm3 (150-450); RBC Distribution Width CV 16.0 % (11.6-14.6); RBC Distribution Width SD 49.8 fl (35.1-43.9); Red Blood Count 3.89 M/mm3 (4.2-5.4); White Blood Count 10.6 K/mm3 (4.4-11.0)
[2025-11-12 05:51] LABS: Internal QC Validated? YES +Cl - CLEAR BKGD; Pregnancy, Serum, hCG Quali. NEGATIVE Negative
[2025-11-12 05:55] LABS: AST(SGOT) 27 U/L (<=31); Alanine Aminotransfer ALT/SGPT 25 U/L (<=34); Albumin, Serum 4.4 g/dL (3.5-5.0); Alkaline Phosphatase 83 U/L (35-104); Anion Gap 14 (7-18); BUN 10 mg/dL (4-19); BUN/Creat Ratio 16.7 RATIO (10-20); Calcium,Total 9.3 mg/dL (7.6-11.0); Carbon Dioxide 23.5 mmol/L (20.0-29.0); Chloride 105 mmol/L (96-106); Estimated Creatinine Clearance 131.39 ml/min (50-250); Globulin 2.9 g/dL (2.2-4.2); Glucose 100 mg/dL (70-99); Lipase 21 U/L (13-75); Potassium 3.2 mmol/L (3.5-5.1)
[2025-11-12 06:02] VITALS: BP 131/88; PULSE 78; RESP 16; O2SAT 98
[2025-11-12 06:03] LABS: Mucous, Urine 0 SEEN /hpf (<or=2+); Squamous Epithelial Cells - UA 0 SEEN /hpf (5-10)
[2025-11-12 06:13] LABS: Color, Urine Yellow (Yellow); Glucose, Dipstick Normal (Normal); Ketone-Dipstick Negative (Negative); Leukocyte Esterase-Dipstick 100 /ul (Negative); Nitrite-Dipstick Negative (Negative); Occult Blood-Urine 50 /ul (Negative); Protein-Dipstick 15 mg/dl (Negative); Specific Gravity, Urine 1.005 (1.002-1.030); Urine Bilirubin Dipstick Negative (Negative)
--- NOTE | 2025-11-12 06:15 | CT_ITS ---
PROCEDURE: ABDOMEN/PELVIS WITHOUT CONT 11/12/2025 REASON FOR EXAM: PAIN TECHNIQUE: Procedure Code: CTABDPEL Modality: CT Procedure: ABDOMEN/PELVIS WITHOUT CONT Noncontrast technique limits evaluation of the abdominal and pelvic viscera. Coronal and Sagittal reconstruction series were provided. One or more dose reduction techniques were used (e.g., Automated exposure control, adjustment of the mA and/or kV according to patient size, use of iterative reconstruction technique). RADIATION DOSE SUMMARY: CTDlvol: 6.01 mGy DLP: 295.46 mGycm COMPARISON: None available. FINDINGS: Lung bases: Lung bases are clear. The liver, gallbladder, kidneys, adrenals, spleen, and pancreas are normal. Mild colonic stool burden without evidence of bowel obstruction. A few descending and sigmoid colonic diverticula. The descending segment is nondistended but not fully characterized the appendix was not seen on this examination. Several pelvic phleboliths. The bladder is grossly within normal limits. Lymph nodes: No suspicious lymph node enlargement. Vasculature: The abdominal aorta and IVC contours are normal. Noncontrast technique limits evaluation. Peritoneum / Retroperitoneum: No ascites. Bones: Osseous structures are age-appropriate. No suspicious lytic or blastic lesion. Soft tissues are unremarkable. CT/Abdomen/Pelvis without Cont IMPRESSION: Mild colonic stool burden without evidence of acute gastroenterologic abnormali ty. The appendix was not definitively identified on this examination without secondary findings to suggest an acute appendicitis . No abdominal lymphadenopathy. Reading Location: [id number]
[2025-11-12 06:29] LABS: Red Blood Cells-Urine 0-5 SEEN /hpf (0-5)
[2025-11-12 07:59] VITALS: BP 130/78; PULSE 76; RESP 16; TEMP 36.6; O2SAT 98
== END 2025-11-12 08:09 | disposition home or self-care (01) ==
PROVIDERS: Emergency Provider Emergency Medicine; Visit Provider Emergency Medicine
DX: R10.9 Unspecified abdominal pain (principal); R11.2 Nausea with vomiting, unspecified; J45.909 Unspecified asthma, uncomplicated; D64.9 Anemia, unspecified
CPT/HCPCS: 74176; 80053; 81001; 83690; 84703; 85025; 87086; 87088; 87186; 96361; 96374; 96375; 96376; 99285; A4216; J2405